=== PATIENT | female | born 1940 | race Caucasian/White ===

== ENCOUNTER 2017-09-14 14:00 | Outpatient (RCR) | payer MEDICARE, SELFPAY | END 2017-09-14 23:59 | LOC: PT.CARL 14:00 | PROVIDERS: Referring Provider Internal Medicine; Visit Provider Internal Medicine | DX: M17.0 Bilateral primary osteoarthritis of knee (principal); M19.021 Primary osteoarthritis, right elbow; M19.042 Primary osteoarthritis, left hand; M19.041 Primary osteoarthritis, right hand | CPT/HCPCS: G8978; G8979; G8980; 97110; 97112; 97116; 97140; 97162; 97530 ==

== ENCOUNTER → 2017-11-16 07:32 | Outpatient (CLI) | payer MEDICARE, SELFPAY ==
[2017-11-16 07:38] LABS: Microscopic, Urine URINE MICROSCOPIC (MICROSCOPIC)
[2017-11-16 13:53] LABS: Appearance,Urine CLEAR (Clear); Bilirubin,Urine Negative (Negative); Blood, Urine Negative (Negative); Color,Urine YELLOW (Yellow); Glucose,Urine (UA) Negative (Negative); Ketones,Urine Negative (Negative); Leukocyte Esterase,Urine 1+ (Negative); Nitrate,Urine Negative (Negative); Protein,Urine Negative (Negative); Urobilinogen,Urine 0.2 EU/dl (0.2)
[2017-11-16 13:57] LABS: Creatinine,Urine Random 27 mg/dL (20-320)
[2017-11-16 14:11] LABS: WBC,Urine Occasional #/hpf (0-3)
[2017-11-16 14:16] LABS: Albumin Level 4.1 gm/dL (3.4-5.0); Anion Gap 13.8 mEq/L (5-15); Calcium 9.3 mg/dL (8.5-10.1); Carbon Dioxide 32 mmol/L (21.0-32.0); Chloride 96 mmol/L (98-107); Creatinine,Serum 1.74 mg/dL (0.55-1.02); Estimated Glomerular Filt Rate 28 ml/min (>60); GFR (African American) 34 ML/MIN (>60); Glucose 189 mg/dL (74-106); Phosphorous 4.5 mg/dL (2.4-4.9); Potassium 3.8 mmoL/L (3.5-5.1); Sodium 138 mmol/L (136-145)
[2017-11-16 14:23] LABS: Blood Urea Nitrogen 111 mg/dL (7-18)
[2017-11-18 06:41] LABS: Sodium, Urine 43 mmol/L (Not Estab.)
== END ==
PROVIDERS: PCP Internal Medicine; Visit Provider Internal Medicine Nephrology
DX: N18.4 Chronic kidney disease, stage 4 (severe) (principal); R82.90 Unspecified abnormal findings in urine
CPT/HCPCS: 36415; 80069; 81001; 82570; 84300; 87086

== ENCOUNTER 2017-12-25 15:00 | Outpatient (RCR) | payer MEDICARE, SELFPAY | END 2017-12-25 17:00 | disposition home or self-care (01) | LOC: PT 15:00 | PROVIDERS: Family Provider Internal Medicine; PCP Internal Medicine; Visit Provider Internal Medicine | DX: M17.0 Bilateral primary osteoarthritis of knee (principal); M19.021 Primary osteoarthritis, right elbow; M19.022 Primary osteoarthritis, left elbow; M19.041 Primary osteoarthritis, right hand; M19.042 Primary osteoarthritis, left hand | CPT/HCPCS: 97010; 97012; 97033; 97035; 97110; 97112; 97164 ==

== ENCOUNTER → 2018-02-01 07:13 | Outpatient (CLI) | payer MEDICARE, SELFPAY ==
[2018-02-01 07:18] LABS: Microscopic, Urine URINE MICROSCOPIC (MICROSCOPIC)
[2018-02-01 14:07] LABS: Anion Gap 13.9 mEq/L (5-15); Calcium 9.6 mg/dL (8.5-10.1); Carbon Dioxide 33 mmol/L (21.0-32.0); Chloride 96 mmol/L (98-107); Creatinine,Serum 1.91 mg/dL (0.55-1.02); Estimated Glomerular Filt Rate 25 ml/min (>60); GFR (African American) 31 ML/MIN (>60); Glucose 146 mg/dL (74-106); Phosphorous 4.8 mg/dL (2.4-4.9); Potassium 3.9 mmoL/L (3.5-5.1); Sodium 139 mmol/L (136-145)
[2018-02-01 14:21] LABS: Blood Urea Nitrogen 107 mg/dL (7-18)
[2018-02-01 14:52] LABS: Creatinine,Urine Random 34 mg/dL (20-320); Total Protein,Urine Random 9.7 mg/dL (0.0-11.9)
[2018-02-01 15:04] LABS: Appearance,Urine CLEAR (Clear); Bilirubin,Urine Negative (Negative); Blood, Urine Negative (Negative); Color,Urine YELLOW (Yellow); Glucose,Urine (UA) Negative (Negative); Ketones,Urine Negative (Negative); Leukocyte Esterase,Urine 1+ (Negative); Nitrate,Urine Negative (Negative); Protein,Urine Negative (Negative); Specific Gravity, Urine <= 1.005 (1.005-1.030); Urobilinogen,Urine 0.2 EU/dl (0.2)
[2018-02-01 15:32] LABS: Bacteria,Urine Trace /lpf; RBC,Urine Occasional #/hpf (0-3)
[2018-02-04 06:16] LABS: Parathyroid Hormone Intact 101 pg/mL (15-65)
== END ==
PROVIDERS: Visit Provider Internal Medicine Nephrology
DX: N18.4 Chronic kidney disease, stage 4 (severe) (principal); R82.90 Unspecified abnormal findings in urine
CPT/HCPCS: 36415; 80069; 81001; 82570; 82652; 83970; 84155; 87086

== ENCOUNTER → 2018-05-22 10:08 | Outpatient (CLI) | payer MEDICARE, SELFPAY ==
--- NOTE | 2018-05-22 10:17 | XR_ITS ---
XR knee LT 3V HISTORY: Previous total knee surgery ITS.REASON: LEFT KNEE PAIN ORDERING PHYSICIAN: Ariel Germain PATIENT AGE: 77 years COMPARISON: Left knee 02/14/2011 FINDINGS: The femoral prosthesis is in good alignment and apposition to the tibial plateau prosthesis. The semiopaque plug is seen undersurface of the patella. There is no evidence of loosening of either prosthesis. IMPRESSION: Satisfactory appearance of total knee prosthesis, no acute bony or soft tissue pathology noted
== END ==
PROVIDERS: PCP Internal Medicine; Visit Provider Internal Medicine
DX: M25.562 Pain in left knee (principal)
CPT/HCPCS: 73562

== ENCOUNTER → 2018-06-02 07:10 | Outpatient (CLI) | payer MEDICARE, SELFPAY ==
[2018-06-02 13:34] LABS: Basophils % 0.5 % (0.1-2.0); Eosinophils # 0.1 K/mm3 (0.0-0.4); Eosinophils % 0.8 % (0.1-12.0); Hematocrit 44.4 % (37.0-47.0); Hemoglobin 14.6 g/dL (12.2-16.2); Lymphocytes # 1.5 K/mm3 (0.7-4.5); Lymphocytes % 26.2 K/mm3 (10-50); Mean Corpuscular HGB Conc 32.8 g/dL (31.8-35.4); Mean Corpuscular Hemoglobin 32.7 pg (27.0-31.2); Mean Corpuscular Volume 99.7 fl (81-99); Mean Platelet Volume 8.1 fl (7.4-10.4); Monocytes # 0.4 K/mm3 (0.1-1.0); Monocytes % 7.5 % (1.7-9.3); Neutrophils # 3.7 K/mm3 (1.8-7.8); Neutrophils % 64.9 % (37.0-80.0); Platelet Count 163 K/mm3 (142-424); Red Blood Count 4.46 M/mm3 (4.20-5.40); Red Cell Distribution Width 15.8 % (11.5-17.5); White Blood Count 5.6 K/mm3 (4.8-10.8)
[2018-06-02 13:47] LABS: Creatinine,Urine Random 36 mg/dL (20-320); Total Protein,Urine Random 8.9 mg/dL (0.0-11.9)
[2018-06-02 13:54] LABS: Albumin Level 4.1 gm/dL (3.4-5.0); Anion Gap 14.7 mEq/L (5-15); Calcium 9.8 mg/dL (8.5-10.1); Carbon Dioxide 31 mmol/L (21.0-32.0); Chloride 97 mmol/L (98-107); Creatinine,Serum 2.02 mg/dL (0.55-1.02); Estimated Glomerular Filt Rate 24 ml/min (>60); GFR (African American) 29 ML/MIN (>60); Glucose 159 mg/dL (74-106); Phosphorous 4.7 mg/dL (2.4-4.9); Potassium 3.7 mmoL/L (3.5-5.1); Sodium 139 mmol/L (136-145)
[2018-06-02 14:06] LABS: Blood Urea Nitrogen 114 mg/dL (7-18)
== END ==
PROVIDERS: PCP Internal Medicine
DX: N18.4 Chronic kidney disease, stage 4 (severe) (principal)
CPT/HCPCS: 36415; 80069; 82570; 84155; 85025

== ENCOUNTER → 2018-08-03 09:48 | Outpatient (CLI) | payer MEDICARE, SELFPAY ==
--- NOTE | 2018-08-03 09:51 | MM_ITS ---
MM Dig screening mamm BI w/CAD CAD Screening COMPARISON: Digital mammograms with CAD 07/30/2017 and 08/24/2015 INDICATION: There is no personal or family history of breast cancer. There is been previous biopsies on each breast for benign disease. TECHNIQUE: Standard CC and MLO images were obtained. R2 CAD reviewed. FINDINGS: Mild to moderate fibroglandular densities are seen in the subareolar regions of both breasts. Again noted is a asymmetric area of glandular density lower central portion left breast is stable. A biopsy clip is seen at this location and the biopsy was benign. There are benign-appearing calcifications in each breast. There is no new or suspicious lesion in either breast and there are no suspicious microcalcifications. IMPRESSION: Stable exam no suspicious lesion seen BI-RADS Category: 2 Benign Finding(s) RECOMMENDED FOLLOW-UP: 1YR - 1 YEAR FOLLOW-UP (A letter has been sent to the patient regarding results of the study.)
== END ==
PROVIDERS: PCP Internal Medicine; Visit Provider Internal Medicine
DX: Z12.31 Encounter for screening mammogram for malignant neoplasm of breast (principal)
CPT/HCPCS: 77067

== ENCOUNTER → 2018-08-13 08:08 | Outpatient (CLI) | payer MEDICARE, SELFPAY ==
--- NOTE | 2018-08-13 08:12 | XR_ITS ---
XR DEXA axial skeleton HISTORY: ITS.REASON: POST MENOPAUSAL ORDERING PHYSICIAN: Ariel Germain PATIENT AGE: 78 years COMPARISON: None FINDINGS: The BMD measured at the left femoral neck is 0.807 g/cm squared with a T score of -1.7. This is considered Osteopenic according to the World Health Organization criteria. Fracture risk is Moderate. Treatment is advised. IMPRESSION: Osteopenia with moderate fracture risk. Suggest treatment and follow-up exam July 2020
== END ==
PROVIDERS: PCP Internal Medicine; Visit Provider Internal Medicine
DX: Z78.0 Asymptomatic menopausal state (principal)
CPT/HCPCS: 77080

== ENCOUNTER → 2018-09-17 08:54 | Outpatient (CLI) | payer MEDICARE, SELFPAY ==
[2018-09-17 09:01] LABS: Microscopic, Urine URINE MICROSCOPIC (MICROSCOPIC)
[2018-09-17 14:22] LABS: Appearance,Urine CLEAR (Clear); Bilirubin,Urine Negative (Negative); Blood, Urine Negative (Negative); Color,Urine YELLOW (Yellow); Glucose,Urine (UA) Negative (Negative); Ketones,Urine Negative (Negative); Leukocyte Esterase,Urine 1+ (Negative); Nitrate,Urine Negative (Negative); PH,Urine 6.5 (5.0-8.5); Protein,Urine Negative (Negative); Specific Gravity, Urine <= 1.005 (1.005-1.030); Urobilinogen,Urine 0.2 EU/dl (0.2)
[2018-09-17 14:30] LABS: Creatinine,Urine Random 33 mg/dL (20-320); Total Protein,Urine Random 7.2 mg/dL (0.0-11.9)
[2018-09-17 14:57] LABS: Basophils # 0.1 K/mm3 (0-0.2); Basophils % 0.9 % (0.1-2.0); Eosinophils # 0.1 K/mm3 (0.0-0.4); Hematocrit 42.7 % (37.0-47.0); Lymphocytes # 1.2 K/mm3 (0.7-4.5); Lymphocytes % 21.2 % (10-50); Mean Corpuscular HGB Conc 32.7 g/dL (31.8-35.4); Mean Corpuscular Hemoglobin 33.1 pg (27.0-31.2); Mean Corpuscular Volume 101.4 fl (81-99); Mean Platelet Volume 8.5 fl (7.4-10.4); Monocytes # 0.4 K/mm3 (0.1-1.0); Monocytes % 6.8 % (1.7-9.3); Neutrophils # 3.8 K/mm3 (1.8-7.8); Neutrophils % 70.2 % (37.0-80.0); Platelet Count 161 K/mm3 (142-424); Red Blood Count 4.21 M/mm3 (4.20-5.40); Red Cell Distribution Width 16.3 % (11.5-17.5); White Blood Count 5.4 K/mm3 (4.8-10.8)
[2018-09-17 15:22] LABS: Bacteria,Urine Trace /lpf
[2018-09-17 16:06] LABS: Albumin Level 4.1 gm/dL (3.4-5.0); Anion Gap 14.8 mEq/L (5-15); Calcium 9.4 mg/dL (8.5-10.1); Carbon Dioxide 29 mmol/L (21.0-32.0); Chloride 97 mmol/L (98-107); Creatinine,Serum 2.12 mg/dL (0.55-1.02); Estimated Glomerular Filt Rate 22 ml/min (>60); GFR (African American) 27 ML/MIN (>60); Glucose 175 mg/dL (74-106); Phosphorous 4.6 mg/dL (2.4-4.9); Potassium 3.8 mmoL/L (3.5-5.1); Sodium 137 mmol/L (136-145)
[2018-09-17 16:26] LABS: Blood Urea Nitrogen 102 mg/dL (7-18)
[2018-09-18 14:03] LABS: Parathyroid Hormone Intact 94 pg/mL (15-65); Vitamin D 25 Hydroxy 41.2 ng/mL (30.0-100.0)
== END ==
PROVIDERS: PCP Internal Medicine
DX: N18.4 Chronic kidney disease, stage 4 (severe) (principal); R82.90 Unspecified abnormal findings in urine
CPT/HCPCS: 36415; 80069; 81001; 82570; 82652; 83970; 84155; 85025; 87086

== ENCOUNTER → 2019-02-02 07:34 | Outpatient (CLI) | payer MEDICARE, SELFPAY ==
[2019-02-02 07:47] LABS: Microscopic, Urine URINE MICROSCOPIC (MICROSCOPIC)
[2019-02-02 14:00] LABS: Appearance,Urine CLEAR (Clear); Bilirubin,Urine Negative (Negative); Blood, Urine Negative (Negative); Color,Urine YELLOW (Yellow); Glucose,Urine (UA) Negative (Negative); Ketones,Urine Negative (Negative); Leukocyte Esterase,Urine 1+ (Negative); Nitrate,Urine Negative (Negative); PH,Urine 6.5 (5.0-8.5); Protein,Urine Negative (Negative); Specific Gravity, Urine <= 1.005 (1.005-1.030); Urobilinogen,Urine 0.2 EU/dl (0.2)
[2019-02-02 14:01] LABS: Basophils # 0.1 K/mm3 (0-0.2); Basophils % 1.1 % (0.1-2.0); Eosinophils # 0.2 K/mm3 (0.0-0.4); Eosinophils % 3.7 % (0.1-12.0); Hematocrit 40.7 % (37.0-47.0); Hemoglobin 13.5 g/dL (12.2-16.2); Lymphocytes # 1.3 K/mm3 (0.7-4.5); Lymphocytes % 27.7 % (10-50); Mean Corpuscular HGB Conc 33.3 g/dL (31.8-35.4); Mean Corpuscular Hemoglobin 32.9 pg (27.0-31.2); Mean Platelet Volume 7.9 fl (7.4-10.4); Monocytes # 0.4 K/mm3 (0.1-1.0); Monocytes % 8.8 % (1.7-9.3); Neutrophils # 2.7 K/mm3 (1.8-7.8); Neutrophils % 58.7 % (37.0-80.0); Platelet Count 176 K/mm3 (142-424); Red Blood Count 4.11 M/mm3 (4.20-5.40); Red Cell Distribution Width 15.7 % (11.5-17.5); White Blood Count 4.7 K/mm3 (4.8-10.8)
[2019-02-02 14:15] LABS: Bacteria,Urine 1+ /lpf
[2019-02-02 14:25] LABS: Albumin Level 3.7 gm/dL (3.4-5.0); Anion Gap 10.8 mEq/L (5-15); Calcium 9.1 mg/dL (8.5-10.1); Carbon Dioxide 32 mmol/L (21.0-32.0); Chloride 100 mmol/L (98-107); Estimated Glomerular Filt Rate 23 ml/min (>60); GFR (African American) 27 ML/MIN (>60); Glucose 155 mg/dL (74-106); Phosphorous 4.5 mg/dL (2.4-4.9); Potassium 3.8 mmoL/L (3.5-5.1); Sodium 139 mmol/L (136-145)
[2019-02-02 14:37] LABS: Blood Urea Nitrogen 101 mg/dL (7-18)
== END ==
PROVIDERS: PCP Internal Medicine; Visit Provider Internal Medicine Nephrology
DX: N18.4 Chronic kidney disease, stage 4 (severe) (principal)
CPT/HCPCS: 36415; 80069; 81001; 85025; 87086

== ENCOUNTER → 2019-02-14 14:47 | Outpatient (CLI) | payer MEDICARE, SELFPAY ==
--- NOTE | 2019-02-14 15:16 | XR_ITS ---
XR hip RT 2-3V w/pelvis HISTORY: Tenderness surrounding a hard lesion subcutaneous tissues of the right buttock ITS.REASON: LESION RT BUTTOCKS ORDERING PHYSICIAN: Ariel Germain PATIENT AGE: 78 years COMPARISON: None FINDINGS: There are 2 ossifications just beneath the surface of the skin right upper buttock just below the level of the right iliac crest. The largest ossification measures 4.4 x 2.4 cm. The small ossification measures 1.37 m in length. The surrounding soft tissues appear normal. Prominent orthopedic hardware is seen lower lumbar spine for multilevel fusion procedure. There is a pain relief device in the soft tissues of the right posteriorly with electrode extending into the mid elbows. 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
== END ==
PROVIDERS: PCP Internal Medicine; Visit Provider Internal Medicine
DX: L02.31 Cutaneous abscess of buttock (principal)
CPT/HCPCS: 73502

== ENCOUNTER → 2019-03-02 08:41 | Outpatient (CLI) | payer MEDICARE, SELFPAY ==
[2019-03-02 15:04] LABS: Creatinine,Serum 2.19 mg/dL (0.55-1.02); Estimated Glomerular Filt Rate 22 ml/min (>60); GFR (African American) 26 ML/MIN (>60)
[2019-03-02 15:09] LABS: Blood Urea Nitrogen 122 mg/dL (7-18)
== END ==
PROVIDERS: PCP Internal Medicine; Visit Provider Surgery
DX: Z01.818 Encounter for other preprocedural examination (principal)
CPT/HCPCS: 36415; 82565; 84520

== ENCOUNTER → 2019-03-10 12:49 | Outpatient (CLI) | payer MEDICARE, SELFPAY ==
--- NOTE | 2019-03-10 12:50 | CT_ITS ---
CT pelvis wo con INDICATION: Right hip mass ITS.REASON: right hip mass ORDERING PHYSICIAN: Ariel Serrano MD PATIENT AGE: 78 years COMPARISON: 03/29/2009 TECHNIQUE: Axial images are obtained without contrast. Sagittal and coronal reformatted images are reviewed as well. All CT scans at the facility use one or more dose reduction, viz: automated exposure control, ma/kV adjustment per patient size (including targeted exams where dose is matched to indication, i.e. head), or iterative reconstruction technique. FINDINGS: A BB is placed along the palpable right hip mass. Axial images are obtained without contrast. Patient had to be positioned obliquely within the CT gantry to adequately image the abnormalities. There is a pain pump present in the subcutaneous regions of the right hip posteriorly and medially. There is a coarse area of calcification in the subcutaneous tissues lobular in nature in the right hip at the gluteal region. This measures approximately 4 cm with some lobulations around it. This is well-circumscribed and calcified and is consistent with an injection granuloma. There is a similar subcutaneous calcific density in the left hip measuring 3.8 x 1.5 cm. This was present on 03/29/2009 and is consistent with an injection granuloma on the left. No suspicious mass or fluid collection is evident. Spine and postsurgical changes of the lumbosacral junction. 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
== END ==
PROVIDERS: PCP Internal Medicine; Visit Provider Surgery
DX: R22.40 Localized swelling, mass and lump, unspecified lower limb (principal)
CPT/HCPCS: 72192

== ENCOUNTER 2019-04-13 13:33 | Observation (INO) ==
[2019-04-13 14:19] LABS: Basophils % 0.2 % (0.1-2.0); Eosinophils % 0.2 % (0.1-12.0); Hematocrit 37.9 % (37.0-47.0); Hemoglobin 12.1 g/dL (12.2-16.2); Lymphocytes # 0.7 K/mm3 (0.7-4.5); Lymphocytes % 7.7 % (10-50); Mean Corpuscular Volume 97.7 fl (81-99); Monocytes # 0.7 K/mm3 (0.1-1.0); Monocytes % 7.8 % (1.7-9.3); Neutrophils # 7.8 K/mm3 (1.8-7.8); Neutrophils % 84.1 % (37.0-80.0); Platelet Count 156 K/mm3 (142-424); Red Blood Count 3.88 M/mm3 (4.20-5.40); Red Cell Distribution Width 15.7 % (11.5-17.5); White Blood Count 9.2 K/mm3 (4.8-10.8)
[2019-04-13 14:30] LABS: Alanine Aminotransferase 41 U/L (12-78); Albumin Level 3.1 gm/dL (3.4-5.0); Albumin/Globulin Ratio 0.7 (1.1-1.8); Alkaline Phosphatase 126 U/L (46-116); Anion Gap 14.8 mEq/L (5-15); Aspartate Amino Transferase 29 U/L (15-37); Bilirubin,Total 1.2 mg/dL (0.2-1.0); Calcium 9.8 mg/dL (8.5-10.1); Carbon Dioxide 27 mmol/L (21.0-32.0); Chloride 94 mmol/L (98-107); Globulin 4.5 gm/dl (1.3-3.2); Glucose 276 mg/dL (74-106); Sodium 131 mmol/L (136-145); Total Protein,Serum 7.6 gm/dL (6.4-8.2)
--- NOTE | 2019-04-13 14:30 | Emergency Department Note ---
ED Disposition Clinical Impression: Cellulitis Disposition: Admitted as Observation Condition on Discharge: Fair Instructions: DI for Hyperglycemia -- Adult Referrals: Ariel Germain [Primary Care Provider] - Time of Disposition: 16:40 - Critical Care Critical Care Time: No Attestation: On 04/13/19, the high probability of a clinically significant, sudden or life threatening deterioration of the following system(s) required my full and direct attention, intervention and personal management. The time I documented below is in addition to time spent performing reported procedures but includes the following listed in this critical care notation. Medical Decision Making - Medical Records Medical records reviewed: Yes: I reviewed the patient's medical records. - Gilles Inquiry Pt receiving controlled substance: No Gilles was queried for this patient: No Vital Signs: 04/13/19 13:44 04/13/19 14:31 04/13/19 15:09 Temperature 98.9 F Temperature Source Oral Pulse Rate [Right Brachial] 80 80 77 Respiratory Rate 19 Blood Pressure [Right Arm] 120/60 106/65 L 111/61 Blood Pressure Mean [Right Arm] 80 78 77 Blood Pressure Source [Right Arm] Automatic Cuff Automatic Cuff Automatic Cuff Blood Pressure Position [Right Arm] Sitting Sitting 02 Sat by Pulse Oximetry 97 94 L 92 L Oxygen Delivery Method Room Air Room Air Room Air 04/13/19 15:35 04/13/19 16:13 Temperature Temperature Source Pulse Rate [Right Brachial] 67 80 Respiratory Rate Blood Pressure [Right Arm] 109/66 L 107/40 L Blood Pressure Mean [Right Arm] 80 62 Blood Pressure Source [Right Arm] Automatic Cuff Automatic Cuff Blood Pressure Position [Right Arm] Sitting Sitting 02 Sat by Pulse Oximetry 94 L 92 L Oxygen Delivery Method Room Air Room Air - Lab Data Lab results reviewed: Yes: I reviewed the patient's lab results. Lab Results 04/13/19 13:50: WBC 9.2, RBC 3.88 L, Hgb 12.1 L, Hct 37.9, MCV 97.7, MCH 31.2, MCHC 32.0, RDW 15.7, Plt Count 156, MPV 8.0, Neut % (Auto) 84.1 H, Lymph % (Auto) 7.7 L, [place] % (Auto) 7.8, Eos % (Auto) 0.2, Baso % (Auto) 0.2, Neut # (Auto) 7.8, Lymph # (Auto) 0.7, [place] # (Auto) 0.7, Eos # (Auto) 0.0, Baso # (Auto) 0.0 04/13/19 13:50: Sodium 131 L, Potassium 4.8, Chloride 94 L, Carbon Dioxide 27, Anion Gap 14.8, BUN 90 H, Creatinine 2.10 H, Estimated Creat Clear 35, Estimated GFR 23 L, Est GFR ( Amer) 27 L, Glucose 276 H, Calcium 9.8, Total Bilirubin 1.2 H, AST 29, ALT 41, Alkaline Phosphatase 126 H, Troponin I < 0.02, Total Protein 7.6, Albumin 3.1 L, Globulin 4.5 H, Albumin/Globulin Ratio 0.7 L 04/13/19 13:50: Lactate 1.4 Result diagrams: 04/13/19 13:50 04/13/19 13:50 Orders (Tests/Meds): ORDERS Category Date Time Status Blood Culture Stat Micro 04/13/19 13:50 Received ECG Request by /Nse Stat Y 04/13/19 14:00 Ordered General Adult HPI - General Chief complaint: Hyper/Hypoglycemia Stated complaint: high sugar and shaking and sick Time Seen by Provider: 04/13/19 14:26 Mode of Arrival: Wheelchair Source of Information: Patient, Relative Limitations: No Limitations Description of Symptoms (Recalled from ER Triage Doc. by RN): incr blood sugar, thinks it might be her leg infection causing it; additionally is worried about the tremors she is experiencing - History of Present Illness HPI narrative: weakness, nausea, irritable/shaky. Has R LE ulcer which appears infected. Previously on antibiotic, caused diarrhea - Related Data Home Medications Medication Instructions Recorded Confirmed insulin aspar prot-insulin aspart SUB-Q 90 Days 11/02/17 03/14/19 100 unit/mL (70-30) subcutaneous pen pen needle, diabetic 31 gauge x See Dose Instructions .ROUTE 11/02/17 03/14/1912/11" .MEDSUPPLY 90 Days each spironolactone 25 mg tablet PO 90 Days 11/02/17 03/14/19 B-complex with vitamin C tablet 1 tab PO DAILY 02/25/19 03/14/19 allopurinol 100 mg tablet 100 mg PO BID 90 Days #180 tab 02/25/19 03/14/19 bisoprolol fumarate 5 mg tablet 2.5 mg PO DAILY 90 Days #45 tab 02/25/19 03/14/19 clonazepam 0.5 mg tablet 0.5 mg PO QHS 30 Days #30 tab 02/25/19 03/14/19 fluoxetine 20 mg capsule 40 mg PO DAILY 90 Days #180 cap 02/25/19 03/14/19 gabapentin 300 mg capsule PO QHS 90 Days cap 02/25/19 03/14/19 gabapentin 600 mg tablet PO TID 90 Days tab 02/25/19 03/14/19 hydrocodone 10 mg-acetaminophen PO Q6H 30 Days tab 02/25/19 03/14/19 325 mg tablet isosorbide mononitrate ER 60 mg 60 mg PO DAILY 90 Days #90 tab 02/25/19 03/14/19 tablet,extended release 24 hr linagliptin 5 mg tablet PO DAILY 90 Days tab 02/25/19 03/14/19 magnesium 400 mg (as magnesium 400 mg PO DAILY 02/25/19 03/14/19 oxide) capsule metolazone 2.5 mg tablet 5 mg PO TID 90 Days #540 tab 02/25/19 03/14/19 potassium chloride ER 20 mEq PO TID 90 Days tab 02/25/19 03/14/19 tablet,extended release(part/cryst) pravastatin 40 mg tablet PO QHS 90 Days tab 02/25/19 03/14/19 ropinirole 1 mg tablet 2 mg PO QHS 90 Days #180 tab 02/25/19 03/14/19 torsemide 20 mg tablet 40 mg PO BID 90 Days #360 tab 02/25/19 03/14/19 Previous Rx's Medication Instructions Recorded ciprofloxacin 0.3 %-dexamethasone 4 drp OTIC BID #7.5 ml 11/02/17 0.1 % ear drops,suspension Cyclobenzaprine HCl 5 mg PO BIDP PRN #20 tab 02/10/19 [Cyclobenzaprine 5mg Tab] Allergies Allergy/AdvReac Type Severity Reaction Status Date / Time acetaminophen [From Percocet] Allergy Severe HIVES AND Verified 03/14/19 11:09 OUT OF MY HEAD oxycodone [OXYCODONE] Allergy Unknown Verified 03/14/19 11:09 [facility] History - Hepatitis A Screen Drug use history?: No High risk sexual behaviors?: No History of sexually transmitted infection?: No Currently employed?: No Childcare worker?: No Do you have indoor plumbing?: Yes Do you have electricity?: Yes Attestation statement:: This patient has been screened for Hepatitis A risk factors. I have reviewed the patient's past medical history: Yes Medical History: Reports:: Congestive Heart Failure, Coronary Artery Disease, Diabetes Mellitus Type 2, Hyperlipidemia, Hypertension, Renal Disease, Renal Insufficiency Denies:: Internal Pacemaker Other Medical History: Reports: Arthritis Laterality Cases: Left: Arthroscopy Knee, Right: Arthroscopy Shoulder Other Surgeries: Yes: Cholecystectomy, Hysterectomy-Total, Other. No: Pacemaker Comment: left foot tendon, samuel knee replacement, lapchole x2, thumb, right arm ulner nerve repair, bladder stim - Social History Educational Level: Completed High School Smoking Status: Unknown if ever smoked Tobacco Type: cigarettes Alcohol Intake: never Substance Use Type: denies use Occupational Status: retired Housing: house Household Members: family Family Hx:: Kidney Disease, Hypertension, Hyperlipidemia, Diabetes, Coronary Artery Disease ROS Obtained: Yes All systems reviewed & no additional complaints - Constitutional Constitutional: Reports chills - Cardiovascular Cardiovascular: Denies chest pain, Denies dyspnea - Respiratory Respiratory: No dyspnea - Gastrointestinal Gastrointestingal: Reports: nausea. Denies: abdominal pain - Musculoskeletal Musculoskeletal: Reports muscle weakness - Integumentary/Breasts Skin/Breast: Reports redness, Reports skin pain, Reports wounds - Neurologic Neurologic: Denies abnormal speech, Denies confusion - Hematologic/Lymphatic Henatologic/Lymphatic: Denies easy bleeding, Denies easy bruising Physical Exam - General General appearance: alert, in no apparent distress - Eye Eye exam: Present: normal appearance, PERRL, EOMI - ENT ENT exam: Present: normal exam, normal oropharynx, mucous membranes moist, TM's normal bilaterally, normal external ear exam - Neck Neck exam: Present: normal inspection, full ROM, trachea midline. Absent: meningismus, lymphadenopathy - Respiratory Respiratory exam: Present: normal lung sounds bilaterally. Absent: respiratory distress - Cardiovascular Cardiovascular exam: Present: regular rate - Abdominal Exam Abdominal exam: Present: soft, normal bowel sounds. Absent: distention, tenderness, guarding - Extremities Exam Extremities exam: Present: tenderness, other (pretibial ulcer). Absent: normal inspection - Neurological Exam Neurological exam: Present: alert, oriented X3 - Skin Skin exam: Present: warm, dry, erythema, other (ulcer present). Absent: intact
[2019-04-13 14:39] LABS: Blood Urea Nitrogen 90 mg/dL (7-18)
[2019-04-13 18:24] LABS: Microscopic, Urine URINE MICROSCOPIC (MICROSCOPIC)
[2019-04-13 18:33] LABS: Appearance,Urine CLEAR (Clear); Bilirubin,Urine Negative (Negative); Blood, Urine TRACE-L (Negative); Color,Urine YELLOW (Yellow); Glucose,Urine (UA) Negative (Negative); Ketones,Urine Negative (Negative); Leukocyte Esterase,Urine 3+ (Negative); Protein,Urine Negative (Negative); Urobilinogen,Urine 0.2 EU/dl (0.2)
[2019-04-13 18:58] LABS: Bacteria,Urine 1+ /lpf; Squamous Epithelial Cell,Urine Occasional #/hpf (0-5); WBC,Urine 50-100 #/hpf (0-3)
[2019-04-14 06:20] LABS: Basophils % 0.6 % (0.1-2.0); Eosinophils # 0.1 K/mm3 (0.0-0.4); Hematocrit 36.3 % (37.0-47.0); Hemoglobin 11.4 g/dL (12.2-16.2); Lymphocytes # 0.7 K/mm3 (0.7-4.5); Lymphocytes % 8.3 % (10-50); Mean Corpuscular HGB Conc 31.5 g/dL (31.8-35.4); Mean Corpuscular Volume 98.7 fl (81-99); Mean Platelet Volume 8.1 fl (7.4-10.4); Monocytes # 0.7 K/mm3 (0.1-1.0); Monocytes % 9.2 % (1.7-9.3); Neutrophils # 6.5 K/mm3 (1.8-7.8); Neutrophils % 80.9 % (37.0-80.0); Platelet Count 146 K/mm3 (142-424); Red Blood Count 3.68 M/mm3 (4.20-5.40); Red Cell Distribution Width 15.7 % (11.5-17.5)
[2019-04-14 06:24] LABS: Anion Gap 12.7 mEq/L (5-15); Calcium 9.4 mg/dL (8.5-10.1)
--- NOTE | 2019-04-14 07:22 | Pharmacy Consult Notes ---
[facility] Pharmacy VTE Monitoring - Patient Demographics Admission date: 04/13/19 Report Date: 04/14/19 Time: 07:22 Allergies/Adverse Reactions: Patient Allergies oxycodone [OXYCODONE] Allergy (Unknown, Verified 04/13/19 19:16) acetaminophen [From Percocet] Adverse Reaction (Severe, Verified 04/13/19 19:16) Height: 1.78 m Weight: 100.924 kg Patient Problems: Current Active Problems (Updated 04/13/19 @ 16:41 by Davonte Edmondson MD) Cellulitis (Acute) - VTE Risk Labs: VTE Related Lab Results Hgb 11.4 g/dL (12.2-16.2) L 04/14/19 05:38 Hct 36.3 % (37.0-47.0) L 04/14/19 05:38 Plt Count 146 K/mm3 (142-424) 04/14/19 05:38 BUN 82 mg/dL (7-18) H 04/14/19 05:38 Creatinine 2.10 mg/dL (0.55-1.02) H 04/14/19 05:38 Estimated Creat Clear 35 mL/min (50-200) 04/14/19 05:38 Was VTE Risk Assessment Performed: Yes VTE Score: 6 VTE Risk Level: Moderate Risk - Prophylaxis VTE Prophylaxis Ordered?: Yes Types of VTE Prophylaxis: TEDS Knee High Location of Applied Device: Left Leg - VTE Diagnosis Confirmed Treatment or plan recommended: Continue Current Treatment
--- NOTE | 2019-04-14 08:38 | Pharmacy Consult Notes ---
- Pharmacy Consult Date: 04/14/19 Time: 08:37 Referring provider: DR. ARRIAGA Reason for Consult:: VANCOMYCIN DOSING Allergies and ADEs:: Allergies Allergy/AdvReac Type Severity Reaction Status Date / Time oxycodone [OXYCODONE] Allergy Unknown Verified 04/13/19 19:16 acetaminophen [From Percocet] AdvReac Severe Verified 04/13/19 19:16 Home Medications:: Home Medications Medication Instructions Recorded Confirmed Type B-complex with vitamin C tablet 1 tab PO DAILY 02/25/19 04/13/19 History allopurinol 100 mg tablet 100 mg PO BID 90 Days #180 tab 02/25/19 04/13/19 History bisoprolol fumarate 5 mg tablet 2.5 mg PO DAILY 90 Days #45 tab 02/25/19 04/13/19 History clonazepam 0.5 mg tablet 0.5 mg PO QHS 30 Days #30 tab 02/25/19 04/13/19 History fluoxetine 20 mg capsule 20 mg PO DAILY 90 Days #180 cap 02/25/19 04/13/19 History gabapentin 300 mg capsule 300 mg PO HS 90 Days cap 02/25/19 04/14/19 History gabapentin 600 mg tablet 600 mg PO TID 90 Days tab 02/25/19 04/14/19 History hydrocodone 10 mg-acetaminophen 1 tab PO Q6HP PRN 30 Days #120 tab 02/25/19 04/14/19 History 325 mg tablet isosorbide mononitrate ER 60 mg 60 mg PO DAILY 90 Days #90 tab 02/25/19 04/13/19 History tablet,extended release 24 hr linagliptin 5 mg tablet 5 mg PO DAILY 90 Days tab 02/25/19 04/14/19 History magnesium 400 mg (as magnesium 400 mg PO DAILY 02/25/19 04/13/19 History oxide) capsule metolazone 2.5 mg tablet 2.5 mg PO TID 90 Days #540 tab 02/25/19 04/13/19 History potassium chloride ER 20 mEq 20 meq PO TID 90 Days tab 02/25/19 04/14/19 History tablet,extended release(part/cryst) pravastatin 40 mg tablet 40 mg PO HS 90 Days tab 02/25/19 04/14/19 History torsemide 20 mg tablet 40 mg PO BID 90 Days #360 tab 02/25/19 04/13/19 History Glucosamine Sulfate Dipot Chlr 1 tab PO DAILY 04/13/19 04/13/19 History [Glucosamine] Miscellaneous [Unknown Home 0 each NOT APPLICABLE CONSULT 04/13/19 04/13/19 History Medication] PHARMACY Ropinirole HCl 2 mg PO HS 04/14/19 04/14/19 History Spironolactone [Spironolactone 25 mg PO BID 04/14/19 04/14/19 History 25mg Tablet] Height: 1.78 m Weight: 100.924 kg Laboratory Results:: Laboratory Results - last 24 hr 04/13/19 13:50: WBC 9.2, RBC 3.88 L, Hgb 12.1 L, Hct 37.9, MCV 97.7, MCH 31.2, MCHC 32.0, RDW 15.7, Plt Count 156, MPV 8.0, Neut % (Auto) 84.1 H, Lymph % (Auto) 7.7 L, [place] % (Auto) 7.8, Eos % (Auto) 0.2, Baso % (Auto) 0.2, Neut # (Auto) 7.8, Lymph # (Auto) 0.7, [place] # (Auto) 0.7, Eos # (Auto) 0.0, Baso # (Auto) 0.0 04/13/19 13:50: Sodium 131 L, Potassium 4.8, Chloride 94 L, Carbon Dioxide 27, Anion Gap 14.8, BUN 90 H, Creatinine 2.10 H, Estimated Creat Clear 35, Estimated GFR 23 L, Est GFR ( Amer) 27 L, Glucose 276 H, Calcium 9.8, Total Bilirubin 1.2 H, AST 29, ALT 41, Alkaline Phosphatase 126 H, Troponin I < 0.02, Total Protein 7.6, Albumin 3.1 L, Globulin 4.5 H, Albumin/Globulin Ratio 0.7 L 04/13/19 13:50: Lactate 1.4 04/13/19 17:19: Urine Color Yellow, Urine Appearance Clear, Urine pH 7.0, Ur Specific [place] 1.010, Urine Protein Negative, Urine Glucose (UA) Negative, Urine Ketones Negative, Urine Blood Trace-l, Urine Nitrate Negative, Urine Bilirubin Negative, Urine Urobilinogen 0.2, Ur Leukocyte Esterase 3+ A, Urine WB C 50-100, Ur Squamous Epith Cells Occasional, Urine Bacteria 1+ 04/13/19 20:08: POC Glucose 340 H* 04/14/19 05:38: WBC 8.0, RBC 3.68 L, Hgb 11.4 L, Hct 36.3 L, MCV 98.7, MCH 31.1, MCHC 31.5 L, RDW 15.7, Plt Count 146, MPV 8.1, Neut % (Auto) 80.9 H, Lymph % (Auto) 8.3 L, [place] % (Auto) 9.2, Eos % (Auto) 1.0, Baso % (Auto) 0.6, Neut # (Auto) 6.5, Lymph # (Auto) 0.7, [place] # (Auto) 0.7, Eos # (Auto) 0.1, Baso # (Auto) 0.0 04/14/19 05:38: Sodium 132 L, Potassium 3.7 D, Chloride 95 L, Carbon Dioxide 28, Anion Gap 12.7, BUN 82 H, Creatinine 2.10 H, Estimated Creat Clear 35, Estimated GFR 23 L, Est GFR ( Amer) 27 L, Glucose 311 H, Calcium 9.4 04/14/19 06:13: POC Glucose 318 H* Medical History: Reports:: Congestive Heart Failure, Coronary Artery Disease, Diabetes Mellitus Type 2, Hyperlipidemia, Hypertension, Renal Disease, Renal Insufficiency Denies:: Cancer, Diabetes Mellitus Type 1, Internal Pacemaker, MRSA Assessment and Plan - Assessment and plan all Dx Assessment and Plan for all problems:: BASED ON PATIENT FACTORS, RECOMMEND VANCOMYCIN 1750 MG IV Q36H. WILL OBTAIN VANCOMYCIN TROUGH LEVEL PRIOR TO 3RD DOSE. PHARMACY WILL FOLLOW DAILY AND ADJUST APPROPRIATE.
--- NOTE | 2019-04-14 09:16 | Non-Invasive Vascular Report ---
"Venous Exam Indications: 729.5 Pain in limb. 782.3 Edema. IMPRESSIONS No evidence of deep or superficial vein thrombosis involving the right lower extremity History: Ulcers of the right leg. Risk factors: Cellulitis. Renal disease. Patient has a right tibial ulcer in the mid calf. This area was bandaged and therefore not imaged. Scanning was performed just distal and proximal to this location. Patient is receiving treatment for cellulitis. Right lower extremity venous duplex evaluation. Doppler flow study including spectral analysis, color and lehman scale imaging. Location: Bedside. Patient status: Inpatient. Tables: Venous flow and imaging: + + + + |Location |Overall |Flow properties | + + + + |Right common femoral |Patent |Normal phasicity; | | | |spontaneous; normal | | | |augmentation; compressible | + + + + |Right saphenofemoral |Patent |Compressible | |junction | | | + + + + |Right profunda femoral |Patent |Compressible | + + + + |Right femoral |Patent |Normal phasicity; | | | |spontaneous; normal | | | |augmentation; compressible | + + + + |Right greater saphenous |Patent |Normal phasicity; | | | |spontaneous; normal | | | |augmentation; compressible | + + + + |Right popliteal |Difficult |Normal phasicity; | | |study |spontaneous; normal | | | |augmentation; compressible | + + + + |Right posterior tibial |Patent |Compressible | + + + + |Right peroneal |Patent |Compressible | + + + + |Right gastrocnemius |Difficult |Compressible | | |study | | + + + + |Right soleal |Difficult |Compressible | | |study | | + + + + (Report amended ) Electronically signed by: Andrae Khan [id number]"
--- NOTE | 2019-04-14 11:02 | Consult Report ---
*Admission Date: 04/13/19 *Reason for consult:: RLE DM ulcer, cellulitis *History of present illness: Mrs. Crawford is a pleasant 78-year-old female who was admitted 04/13/2019 for right lower semi-cellulitis. Her PCP is Dr. Germain who saw her several weeks ago it started her on oral antibiotics. Patient unsure which one but has taken it once daily for 11 days. States the pain and swelling to the right leg has improved. He has a routine engineering librarian she sees outpatient, last seen 6 weeks ago in [place] Dr. Zapata. Patient states that she has had the ulcers at least 3 weeks to her knowledge to the front of the right leg. Daughter has been cleaning them at home and applying Neosporin with a bandage daily. They deny any purulence or malodor. She denies N/V, F/C, SOB/CP. Review of Systems - Constitutional Reports fatigue, Denies chills - Eyes Denies blurry vision - ENT Denies abnormal hearing - *Cardiovascular Denies chest pain, Denies shortness of breath - *Respiratory Denies cough, Denies shortness of breath - *Gastrointestinal Denies nausea, Denies vomiting - *Genitourinary Denies abnormal periods - *Musculoskeletal Reports muscle weakness - Integumentary/Breasts Reports change in skin color, Reports dry skin, Reports skin ulcer - *Neurologic Denies abnormal speech, Denies confusion - Hematologic/Lymphatic Reports easy bruising [facility] History Medical History: Reports:: Congestive Heart Failure, Coronary Artery Disease, Diabetes Mellitus Type 2, Hyperlipidemia, Hypertension, Renal Disease, Renal Insufficiency Denies:: Cancer, Diabetes Mellitus Type 1, Internal Pacemaker, MRSA *Have you ever received a pneumonia vaccine?: Yes *Have you received a flu vaccine this season?: Yes Other Medical History: Reports: Arthritis Laterality Cases: Left: Arthroscopy Knee, Right: Arthroscopy Shoulder Other Surgeries: Yes: Cholecystectomy, Hysterectomy-Total, Other. No: Pacemaker Amputation: No - *Social History Educational Level: Completed High School Smoking Status: Unknown if ever smoked Tobacco Type: cigarettes Alcohol Intake: never Substance Use Type: denies use *Occupational Status:: retired Housing: house Household Members: family *Travel in the last 8 weeks: None Family Hx:: Kidney Disease, Hypertension, Hyperlipidemia, Diabetes, Coronary Artery Disease Meds Home Medications Medication Instructions Recorded Confirmed Type B-complex with vitamin C tablet 1 tab PO DAILY 02/25/19 04/13/19 History allopurinol 100 mg tablet 100 mg PO BID 90 Days #180 tab 02/25/19 04/13/19 History bisoprolol fumarate 5 mg tablet 2.5 mg PO DAILY 90 Days #45 tab 02/25/19 04/13/19 History clonazepam 0.5 mg tablet 0.5 mg PO QHS 30 Days #30 tab 02/25/19 04/13/19 History fluoxetine 20 mg capsule 20 mg PO DAILY 90 Days #180 cap 02/25/19 04/13/19 History gabapentin 300 mg capsule 300 mg PO HS 90 Days cap 02/25/19 04/14/19 History gabapentin 600 mg tablet 600 mg PO TID 90 Days tab 02/25/19 04/14/19 History hydrocodone 10 mg-acetaminophen 1 tab PO Q6HP PRN 30 Days #120 tab 02/25/19 04/14/19 History 325 mg tablet isosorbide mononitrate ER 60 mg 60 mg PO DAILY 90 Days #90 tab 02/25/19 04/13/19 History tablet,extended release 24 hr linagliptin 5 mg tablet 5 mg PO DAILY 90 Days tab 02/25/19 04/14/19 History magnesium 400 mg (as magnesium 400 mg PO DAILY 02/25/19 04/13/19 History oxide) capsule metolazone 2.5 mg tablet 2.5 mg PO TID 90 Days #540 tab 02/25/19 04/13/19 History potassium chloride ER 20 mEq 20 meq PO TID 90 Days tab 02/25/19 04/14/19 History tablet,extended release(part/cryst) pravastatin 40 mg tablet 40 mg PO HS 90 Days tab 02/25/19 04/14/19 History torsemide 20 mg tablet 40 mg PO BID 90 Days #360 tab 02/25/19 04/13/19 History Glucosamine Sulfate Dipot Chlr 1 tab PO DAILY 04/13/19 04/13/19 History [Glucosamine] Miscellaneous [Unknown Home 0 each NOT APPLICABLE CONSULT 04/13/19 04/13/19 Hi story Medication] PHARMACY Ropinirole HCl 2 mg PO HS 04/14/19 04/14/19 History Spironolactone [Spironolactone 25 mg PO BID 04/14/19 04/14/19 History 25mg Tablet] Allergies Allergy/AdvReac Type Severity Reaction Status Date / Time oxycodone [OXYCODONE] Allergy Unknown Verified 04/13/19 19:16 acetaminophen [From Percocet] AdvReac Severe Verified 04/13/19 19:16 Exam Vital signs and Labs for Last 24 Hours: Temp Pulse Resp BP Pulse Ox 98.1 F 80 20 136/58 L 91 L 04/14/19 07:27 04/14/19 07:27 04/14/19 07:27 04/14/19 07:27 04/14/19 07:27 Laboratory Results - last 24 hr 04/13/19 13:50: WBC 9.2, RBC 3.88 L, Hgb 12.1 L, Hct 37.9, MCV 97.7, MCH 31.2, MCHC 32.0, RDW 15.7, Plt Count 156, MPV 8.0, Neut % (Auto) 84.1 H, Lymph % (Auto) 7.7 L, [place] % (Auto) 7.8, Eos % (Auto) 0.2, Baso % (Auto) 0.2, Neut # (Auto) 7.8, Lymph # (Auto) 0.7, [place] # (Auto) 0.7, Eos # (Auto) 0.0, Baso # (Auto) 0.0 04/13/19 13:50: Sodium 131 L, Potassium 4.8, Chloride 94 L, Carbon Dioxide 27, Anion Gap 14.8, BUN 90 H, Creatinine 2.10 H, Estimated Creat Clear 35, Estimated GFR 23 L, Est GFR ( Amer) 27 L, Glucose 276 H, Calcium 9.8, Total Bilirubin 1.2 H, AST 29, ALT 41, Alkaline Phosphatase 126 H, Troponin I < 0.02, Total Protein 7.6, Albumin 3.1 L, Globulin 4.5 H, Albumin/Globulin Ratio 0.7 L 04/13/19 13:50: Lactate 1.4 04/13/19 17:19: Urine Color Yellow, Urine Appearance Clear, Urine pH 7.0, Ur Specific [place] 1.010, Urine Protein Negative, Urine Glucose (UA) Negative, Urine Ketones Negative, Urine Blood Trace-l, Urine Nitrate Negative, Urine Bilirubin Negative, Urine Urobilinogen 0.2, Ur Leukocyte Esterase 3+ A, Urine WBC 50-100, Ur Squamous Epith Cells Occasional, Urine Bacteria 1+ 04/13/19 20:08: POC Glucose 340 H* 04/14/19 05:38: WBC 8.0, RBC 3.68 L, Hgb 11.4 L, Hct 36.3 L, MCV 98.7, MCH 31.1, MCHC 31.5 L, RDW 15.7, Plt Count 146, MPV 8.1, Neut % (Auto) 80.9 H, Lymph % (Auto) 8.3 L, [place] % (Auto) 9.2, Eos % (Auto) 1.0, Baso % (Auto) 0.6, Neut # (Auto) 6.5, Lymph # (Auto) 0.7, [place] # (Auto) 0.7, Eos # (Auto) 0.1, Baso # (A uto) 0.0 04/14/19 05:38: Sodium 132 L, Potassium 3.7 D, Chloride 95 L, Carbon Dioxide 28, Anion Gap 12.7, BUN 82 H, Creatinine 2.10 H, Estimated Creat Clear 35, Estimated GFR 23 L, Est GFR ( Amer) 27 L, Glucose 311 H, Calcium 9.4 04/14/19 05:38: ESR 123 H 04/14/19 05:38: C-Reactive Protein 32.8 H 04/14/19 06:13: POC Glucose 318 H* I & O for Last 24 hours: Intake & Output 04/11/19 04/12/19 04/13/19 04/14/19 11:59 11:59 11:59 11:59 Intake Total 1011 / 1011 Balance 1011 / 1011 Weight 222 lb 8 oz - *Routine HEENT Exam Head: Present: normocephalic Eye: Present: EOMI - *Routine Neck Exam Present: supple - *Routine Respiratory Exam Present: accessory muscle use - *Routine Cardiovascular Exam Present: RRR - *Routine Abdominal Exam Present: soft - *Routine Rectal Exam Patient deferred: visual exam - *Routine Exam Patient deferred: external exam - *Routine Extremities Exam Present: edema, pulses intact, calf tenderness (RLE) - *Routine Skin Exam Present: erythema, wounds - *Routine Neurological Exam Present: alert, moving all extremities - Detailed Lower Extremity Exam Leg image: 1 - RLE cellulitis. 2 wounds noted. Both were sharply debrided with 15' blade. Biofilm and fibrotic slough were debrided. The wound did notprobe thru deep fascia and into the bone. There was no drainage and no purulence noted. No malodor. No wound culture obtained. Jessy-wound cellulitis noted. Non-palpable popliteal lymph nodes. 1) Post-debridement the right anterior patrick wound base was: 90% granular, 10 % fibrotic tissue. The wound measured 2.6 x 3.4 x 0.2 cm. 2) The right lateral ulcer was also sharply divided with a 15 as above. It did not extend deeply. Post debridement 100% granular and the wound measured 0.3 x 0.2 x 0.1 cm. Pain with squeezing of right posterior calf. Edema and erythema noted to RLE. Nails trimmed, groomed. No SOI plantar ulcers. Results - Labs Result Diagrams: 04/14/19 05:38 04/14/19 05:38 Labs: Abnormal lab results 04/13/19 04/13/19 04/13/19 Range/Units 13:50 13:50 17:19 RBC 3.88 L (4.20-5.40) M/mm3 Hgb 12.1 L (12.2-16.2) g/dL Hct (37.0-47.0) % MCHC (31.8-35.4) g/dL Neut % (Auto) 84.1 H (37.0-80.0) % Lymph % (Auto) 7.7 L (10-50) % ESR (0-30) mm/hr Sodium 131 L (136-145) mmol/L Chloride 94 L (98-107) mmol/L BUN 90 H (7-18) mg/dL Creatinine 2.10 H (0.55-1.02) mg/dL Estimated GFR 23 L (>60) ml/min Est GFR ( Amer) 27 L (>60) ML/MIN Glucose 276 H (74-106) mg/dL POC Glucose (70-110) Total Bilirubin 1.2 H (0.2-1.0) mg/dL Alkaline Phosphatase 126 H (46-116) U/L C-Reactive Protein (0.0-0.9) mg/L Albumin 3.1 L (3.4-5.0) gm/dL Globulin 4.5 H (1.3-3.2) gm/dl Albumin/Globulin Ratio 0.7 L (1.1-1.8) Ur Leukocyte Esterase 3+ A (Negative) 04/13/19 04/14/19 04/14/19 Range/Units 20:08 05:38 05:38 RBC 3.68 L (4.20-5.40) M/mm3 Hgb 11.4 L (12.2-16.2) g/dL Hct 36.3 L (37.0-47.0) % MCHC 31.5 L (31.8-35.4) g/dL Neut % (Auto) 80.9 H (37.0-80.0) % Lymph % (Auto) 8.3 L (10-50) % ESR (0-30) mm/hr Sodium 132 L (136-145) mmol/L Chloride 95 L (98-107) mmol/L BUN 82 H (7-18) mg/dL Creatinine 2.10 H (0.55-1.02) mg/dL Estimated GFR 23 L (>60) ml/min Est GFR ( Amer) 27 L (>60) ML/MIN Glucose 311 H (74-106) mg/dL POC Glucose 340 H* (70-110) Total Bilirubin (0.2-1.0) mg/dL Alkaline Phosphatase (46-116) U/L C-Reactive Protein (0.0-0.9) mg/L Albumin (3.4-5.0) gm/dL Globulin (1.3-3.2) gm/dl Albumin/Globulin Ratio (1.1-1.8) Ur Leukocyte Esterase (Negative) 04/14/19 04/14/19 04/14/19 Range/Units 05:38 05:38 06:13 RBC (4.20-5.40) M/mm3 Hgb (12.2-16.2) g/dL Hct (37.0-47.0) % MCHC (31.8-35.4) g/dL Neut % (Auto) (37.0-80.0) % Lymph % (Auto) (10-50) % ESR 123 H (0-30) mm/hr Sodium (136-145) mmol/L Chloride (98-107) mmol/L BUN (7-18) mg/dL Creatinine (0.55-1.02) mg/dL Estimated GFR (>60) ml/min Est GFR ( Amer) (>60) ML/MIN Glucose (74-106) mg/dL POC Glucose 318 H* (70-110) Total Bilirubin (0.2-1.0) mg/dL Alkaline Phosphatase (46-116) U/L C-Reactive Protein 32.8 H (0.0-0.9) mg/L Albumin (3.4-5.0) gm/dL Globulin (1.3-3.2) gm/dl Albumin/Globulin Ratio (1.1-1.8) Ur Leukocyte Esterase (Negative) H & H 04/13/19 04/14/19 Range/Units 13:50 05:38 Hgb 12.1 L 11.4 L (12.2-16.2) g/dL Hct 37.9 36.3 L (37.0-47.0) % All other labs normal. Assessment and Plan (1) Cellulitis of right leg Current visit: Yes Status: Acute Category: Medical Code(s): L03.115 - Cellulitis of right lower limb (2) Diabetic ulcer of right lower leg Current visit: Yes Status: Acute Category: Medical Code(s): E11.622 - Type 2 diabetes mellitus with other skin ulcer; L97.919 - Non-pressure chronic ulcer of unspecified part of right lower leg with unspecified severity (3) Diabetes mellitus with neuropathy Current visit: Yes Status: Acute Category: Medical Code(s): E11.40 - Type 2 diabetes mellitus with diabetic neuropathy, unspecified (4) Right leg pain Current visit: Yes Status: Acute Category: Medical Code(s): M79.604 - Pain in right leg - Assessment and plan all Dx Assessment and Plan for all problems:: Right leg cellulitis, diabetic ulcer: Infected Wound: Right anterior patrick diabetic ulcer ulcer: I discussed with the patient the importance of proper hygiene and maintaining a clean healthy wound bed to avoid the infection spreading. The wound was cleansed with betadine. Utilizing a 15 blade, the wound was sharply excisionally debrided through skin into sub q layer. Biofilm and fibrotic slough were debrided. The wound did notprobe thru deep fascia and into the bone. There was no drainage and no purulence noted. No malodor. No wound culture obtained. Jessy-wound cellulitis noted. Non-palpable popliteal lymph nodes. Post-debridement the anterior wound base was: 90% granular, 10 % fibrotic tissue. The wound measured 2.6 x 3.4 x 0.2 cm. The right lateral ulcer was also sharply divided with a 15 as above. It did not extend deeply. Post debridement 100% granular and the wound measured 0.3 x 0.2 x 0.1 cm. *Pain with squeeze of the right calf. Venous Doppler ordered to rule out DVT. 1. Dressing applied: betadine adaptic dry sterile dressing 2. Wound care instructions given: change dressing daily 3. WBaT with DME assistance 4. Order infection panel: CBC, ESR, CRP, Ha1c. 5. IV antibiotics broad spectrum, likely polymicrobial diabetic ulcer. No wound culture taken as there was no active drainage. 6. Outpatient I would arrange for patient/family to do daily dressing changes or go to wound care center outpatient for follow-up. Cleansed the right leg ulcers with saline or Betadine. The soak Adaptic or 4 x 4's in betwadine to wound, then apply a dry sterile dressing (chandana or kerlix) over the Betadine soaked Adaptic or 4 x 4. Secured with an Otis or with tape. Change the dressing daily. 7. Wound appears stable from a podiatry standpoint. No surgical intervention planned for this patient at this time 8. She can follow-up with her engineering librarian Dr. Eaton in [place] as previously scheduled (last seen 6 weeks ago) 9. Will need antibiotics for discharge 10. Please call me/my office with questions or concerns
--- NOTE | 2019-04-14 13:54 | H&P/Discharge Summary ---
General - General Admission date:: 04/13/19 Discharge date: 04/14/19 *Admission Date: 04/13/19 *Chief complaint: neck pain, upper back pain, RLE pain *History of present illness: Mrs. Crawford is a pleasant 78-year-old female who was admitted 04/13/2019 for right lower semi-cellulitis. Her PCP is Dr. Germain who saw her several weeks ago it started her on oral antibiotics. Patient unsure which one but has taken it once daily for 11 days. States the pain and swelling to the right leg has improved. He has a routine modeler she sees outpatient, last seen 6 weeks ago in [place] Dr[address] Zapata. Patient states that she has had the ulcers at least 3 weeks to her knowledge to the front of the right leg. Daughter has been cleaning them at home and applying Neosporin with a bandage daily. They deny any purulence or malodor. She denies N/V, F/C, SOB/CP. Above per Dr. Murphy much appreciated. Patient fell backwards a few days ago and has had neck/upper back pain since. States RLE is improved. She currently has home health for wound care. [facility] History I have reviewed the patient's past medical history: Yes Medical History: Reports:: Congestive Heart Failure, Coronary Artery Disease, Diabetes Mellitus Type 2, Hyperlipidemia, Hypertension, Renal Disease, Renal Insufficiency Denies:: Cancer, Diabetes Mellitus Type 1, Internal Pacemaker, MRSA *Have you ever received a pneumonia vaccine?: Yes *Have you received a flu vaccine this season?: Yes Other Medical History: Reports: Arthritis Laterality Cases: Left: Arthroscopy Knee, Right: Arthroscopy Shoulder Other Surgeries: Yes: Cholecystectomy, Hysterectomy-Total, Other. No: Pacemaker Amputation: No - *Social History Educational Level: Completed High School Smoking Status: Unknown if ever smoked Tobacco Type: cigarettes Alcohol Intake: never Substance Use Type: denies use *Occupational Status:: retired Housing: house Household Members: family *Travel in the last 8 weeks: None Family Hx:: Kidney Disease, Hypertension, Hyperlipidemia, Diabetes, Coronary Artery Disease Review of Systems - Review of Systems Review of systems:: pertinent systems reviewed and negative unless documented below - Constitutional Reports weakness - *Cardiovascular Reports leg swelling - *Musculoskeletal Reports joint pain, Reports back pain, Reports neck pain - *Neurologic Denies abnormal hearing, Denies abnormal speech, Denies confusion Exam Vital signs and Labs for Last 24 Hours: Temp Pulse Resp BP Pulse Ox 98.1 F 80 20 136/58 L 91 L 04/14/19 07:27 04/14/19 07:27 04/14/19 07:27 04/14/19 07:27 04/14/19 07:27 Laboratory Results - last 24 hr 04/13/19 13:50: WBC 9.2, RBC 3.88 L, Hgb 12.1 L, Hct 37.9, MCV 97.7, MCH 31.2, MCHC 32.0, RDW 15.7, Plt Count 156, MPV 8.0, Neut % (Auto) 84.1 H, Lymph % (Auto) 7.7 L, Ford % (Auto) 7.8, Eos % (Auto) 0.2, Baso % (Auto) 0.2, Neut # (Auto) 7.8, Lymph # (Auto) 0.7, Ford # (Auto) 0.7, Eos # (Auto) 0.0, Baso # (Auto) 0.0 04/13/19 13:50: Sodium 131 L, Potassium 4.8, Chloride 94 L, Carbon Dioxide 27, Anion Gap 14.8, BUN 90 H, Creatinine 2.10 H, Estimated Creat Clear 35, Estimated GFR 23 L, Est GFR ( Amer) 27 L, Glucose 276 H, Calcium 9.8, Total Bilirubin 1.2 H, AST 29, ALT 41, Alkaline Phosphatase 126 H, Troponin I < 0.02, Total Protein 7.6, Albumin 3.1 L, Globulin 4.5 H, Albumin/Globulin Ratio 0.7 L 04/13/19 13:50: Lactate 1.4 04/13/19 17:19: Urine Color Yellow, Urine Appearance Clear, Urine pH 7.0, Ur Specific [place] 1.010, Urine Protein Negative, Urine Glucose (UA) Negative, Urine Ketones Negative, Urine Blood Trace-l, Urine Nitrate Negative, Urine Bilirubin Negative, Urine Urobilinogen 0.2, Ur Leukocyte Esterase 3+ A, Urine WBC 50-100, Ur Squamous Epith Cells Occasional, Urine Bacteria 1+ 04/13/19 20:08: POC Glucose 340 H* 04/14/19 05:38: WBC 8.0, RBC 3.68 L, Hgb 11.4 L, Hct 36.3 L, MCV 98.7, MCH 31.1, MCHC 31.5 L, RDW 15.7, Plt Count 146, MPV 8.1, Neut % (Auto) 80.9 H, Lymph % (Auto) 8.3 L, Ford % (Auto) 9.2, Eos % (Auto) 1.0, Baso % (Auto) 0.6, Neut # (Auto) 6.5, Lymph # (Auto) 0.7, Ford # (Auto) 0.7, Eos # (Auto) 0.1, Baso # (Auto) 0.0 04/14/19 05:38: Sodium 132 L, Potassium 3.7 D, Chloride 95 L, Carbon Dioxide 28, Anion Gap 12.7, BUN 82 H, Creatinine 2.10 H, Estimated Creat Clear 35, Estimated GFR 23 L, Est GFR ( Amer) 27 L, Glucose 311 H, Calcium 9.4 04/14/19 05:38: ESR 123 H 04/14/19 05:38: C-Reactive Protein 32.8 H 04/14/19 06:13: POC Glucose 318 H* I & O for Last 24 hours: Intake & Output 04/12/19 04/13/19 04/14/19 04/15/19 11:59 11:59 11:59 11:59 Intake Total 1011 / 1011 240 / 240 Balance 1011 / 1011 240 / 240 Weight 222 lb 8 oz Narrative: ALert and oriented x3. Rate and rhythm regular. LS clear and equal. ENT exam unremarkable. 1-2+ BLE edema right > left; approx 2x3cm superficial ulcer to anterior patrick, minimal surrounding erythema, no warmth, no purulent drainage. Abdomen soft and nontender Hospital Course Hospital Course: Patient was admitted for observation. Podiatry was consulted for RLE cellulitis who performed superficial debridement of RLE ulcer at bedside. See note. Venous doppler was obtained of RLE which was negative. Inflammatory markers were ordered which were both elevated. RLE x-ray negative for osteomyelitis. X-rays of cervical and thoracic spine were obtained and found to be negative for acute pathology. Physical therapy was consulted for home evaluation who feel she is appropriate to return home with home health. Patient does report some balance issues that are new. If this persists may consider additional work-up with CT head as outpatient. Discharge home with home health for wound care and PT/OT. Add tizandine PRN for muscle spasms, otherwise no med changes. Dr. Murphy recommends one time dose of Orbactiv which is pending insurance approval. If not approved care management will call Dr. Murphy tomorrow for further antibiotic recommendations. Patient needs to FU with Dr. Germain on Thursday and podiatry in one week. Repeat CRP and ESR in one week. If remains elevated would consider bone scan. Results Labs on day of discharge: Labs from last 24 hours 04/14/19 04/14/19 04/14/19 06:13 05:38 05:38 WBC RBC Hgb Hct MCV MCH MCHC RDW Plt Count MPV Neut % (Auto) Lymph % (Auto) Ford % (Auto) Eos % (Auto) Baso % (Auto) Neut # (Auto) Lymph # (Auto) Ford # (Auto) Eos # (Auto) Baso # (Auto) ESR 123 H Sodium Potassium Chloride Carbon Dioxide Anion Gap BUN Creatinine Estimated Creat Clear Estimated GFR Est GFR ( Amer) Glucose POC Glucose 318 H* Lactate Calcium Total Bilirubin AST ALT Alkaline Phosphatase Troponin I C-Reactive Protein 32.8 H Total Protein Albumin Globulin Albumin/Globulin Ratio Urine Color Urine Appearance Urine pH Ur Specific [place] Urine Protein Urine Glucose (UA) Urine Ketones Urine Blood Urine Nitrate Urine Bilirubin Urine Urobilinogen Ur Leukocyte Esterase Urine WBC Ur Squamous Epith Cells Urine Bacteria 04/14/19 04/14/19 04/13/19 05:38 05:38 20:08 WBC 8.0 RBC 3.68 L Hgb 11.4 L Hct 36.3 L MCV 98.7 MCH 31.1 MCHC 31.5 L RDW 15.7 Plt Count 146 MPV 8.1 Neut % (Auto) 80.9 H Lymph % (Auto) 8.3 L Ford % (Auto) 9.2 Eos % (Auto) 1.0 Baso % (Auto) 0.6 Neut # (Auto) 6.5 Lymph # (Auto) 0.7 Ford # (Auto) 0.7 Eos # (Auto) 0.1 Baso # (Auto) 0.0 ESR Sodium 132 L Potassium 3.7 D Chloride 95 L Carbon Dioxide 28 Anion Gap 12.7 BUN 82 H Creatinine 2.10 H Estimated Creat Clear 35 Estimated GFR 23 L Est GFR ( Amer) 27 L Glucose 311 H POC Glucose 340 H* Lactate Calcium 9.4 Total Bilirubin AST ALT Alkaline Phosphatase Troponin I C-Reactive Protein Total Protein Albumin Globulin Albumin/Globulin Ratio Urine Color Urine Appearance Urine pH Ur Specific [place] Urine Protein Urine Glucose (UA) Urine Ketones Urine Blood Urine Nitrate Urine Bilirubin Urine Urobilinogen Ur Leukocyte Esterase Urine WBC Ur Squamous Epith Cells Urine Bacteria 04/13/19 04/13/19 04/13/19 17:19 13:50 13:50 WBC RBC Hgb Hct MCV MCH MCHC RDW Plt Count MPV Neut % (Auto) Lymph % (Auto) Ford % (Auto) Eos % (Auto) Baso % (Auto) Neut # (Auto) Lymph # (Auto) Ford # (Auto) Eos # (Auto) Baso # (Auto) ESR Sodium 131 L Potassium 4.8 Chloride 94 L Carbon Dioxide 27 Anion Gap 14.8 BUN 90 H Creatinine 2.10 H Estimated Creat Clear 35 Estimated GFR 23 L Est GFR ( Amer) 27 L Glucose 276 H POC Glucose Lactate 1.4 Calcium 9.8 Total Bilirubin 1.2 H AST 29 ALT 41 Alkaline Phosphatase 126 H Troponin I < 0.02 C-Reactive Protein Total Protein 7.6 Albumin 3.1 L Globulin 4.5 H Albumin/Globulin Ratio 0.7 L Urine Color Yellow Urine Appearance Clear Urine pH 7.0 Ur Specific [place] 1.010 Urine Protein Negative Urine Glucose (UA) Negative Urine Ketones Negative Urine Blood Trace-l Urine Nitrate Negative Urine Bilirubin Negative Urine Urobilinogen 0.2 Ur Leukocyte Esterase 3+ A Urine WBC 50-100 Ur Squamous Epith Cells Occasional Urine Bacteria 1+ 04/13/19 13:50 WBC 9.2 RBC 3.88 L Hgb 12.1 L Hct 37.9 MCV 97.7 MCH 31.2 MCHC 32.0 RDW 15.7 Plt Count 156 MPV 8.0 Neut % (Auto) 84.1 H Lymph % (Auto) 7.7 L Ford % (Auto) 7.8 Eos % (Auto) 0.2 Baso % (Auto) 0.2 Neut # (Auto) 7.8 Lymph # (Auto) 0.7 Ford # (Auto) 0.7 Eos # (Auto) 0.0 Baso # (Auto) 0.0 ESR Sodium Potassium Chloride Carbon Dioxide Anion Gap BUN Creatinine Estimated Creat Clear Estimated GFR Est GFR ( Amer) Glucose POC Glucose Lactate Calcium Total Bilirubin AST ALT Alkaline Phosphatase Troponin I C-Reactive Protein Total Protein Albumin Globulin Albumin/Globulin Ratio Urine Color Urine Appearance Urine pH Ur Specific [place] Urine Protein Urine Glucose (UA) Urine Ketones Urine Blood Urine Nitrate Urine Bilirubin Urine Urobilinogen Ur Leukocyte Esterase Urine WBC Ur Squamous Epith Cells Urine Bacteria DS: Diagnosis - Discharge Diagnosis (1) Cellulitis of right leg Status: Acute (2) Diabetic ulcer of right lower leg Status: Acute (3) Diabetes mellitus with neuropathy Status: Chronic (4) Right leg pain Status: Acute (5) Neck pain Status: Acute Discharge Plan - Patient Discharge Instructions ACTIVITY: Continue current activity DIET: continue same diet Patient Instructions: DI for Cellulitis -- Adult, Type 2 Diabetes - Follow up Plan Follow up with: Ariel Germain [Primary Care Provider] - 04/18/19 Unknown provider or service follow up:: 04/14/19 15:10 podiatry 1 week with CRP and ESR Disposition: Home Health Service Home Medications: Home Medications Medication Instructions Recorded Confirmed Type B-complex with vitamin C tablet 1 tab PO DAILY 02/25/19 04/13/19 History allopurinol 100 mg tablet 100 mg PO BID 90 Days #180 tab 02/25/19 04/13/19 History bisoprolol fumarate 5 mg tablet 2.5 mg PO DAILY 90 Days #45 tab 02/25/19 04/13/19 History clonazepam 0.5 mg tablet 0.5 mg PO QHS 30 Days #30 tab 02/25/19 04/13/19 History fluoxetine 20 mg capsule 20 mg PO DAILY 90 Days #180 cap 02/25/19 04/13/19 History gabapentin 300 mg capsule 300 mg PO HS 90 Days cap 02/25/19 04/14/19 History gabapentin 600 mg tablet 600 mg PO TID 90 Days tab 02/25/19 04/14/19 History hydrocodone 10 mg-acetaminophen 1 tab PO Q6HP PRN 30 Days #120 tab 02/25/19 04/14/19 History 325 mg tablet isosorbide mononitrate ER 60 mg 60 mg PO DAILY 90 Days #90 tab 02/25/19 04/13/19 History tablet,extended release 24 hr linagliptin 5 mg tablet 5 mg PO DAILY 90 Days tab 02/25/19 04/14/19 History magnesium 400 mg (as magnesium 400 mg PO DAILY 02/25/19 04/13/19 History oxide) capsule metolazone 2.5 mg tablet 2.5 mg PO TID 90 Days #540 tab 02/25/19 04/13/19 History potassium chloride ER 20 mEq 20 meq PO TID 90 Days tab 02/25/19 04/14/19 History tablet,extended release(part/cryst) pravastatin 40 mg tablet 40 mg PO HS 90 Days tab 02/25/19 04/14/19 History torsemide 20 mg tablet 40 mg PO BID 90 Days #360 tab 02/25/19 04/13/19 History Glucosamine Sulfate Dipot Chlr 1 tab PO DAILY 04/13/19 04/13/19 History [Glucosamine] Ropinirole HCl 2 mg PO HS 04/14/19 04/14/19 History Spironolactone [Spironolactone 25 mg PO BID 04/14/19 04/14/19 History 25mg Tablet] Tizanidine HCl 2 mg PO BIDP PRN #14 tab 04/14/19 Rx Prescriptions/Medication Reconciliation: New Tizanidine HCl 2 mg PO BIDP PRN #14 tab PRN Reason: Muscle Spasm Continued allopurinol 100 mg tablet 100 mg PO BID 90 Days #180 tab bisoprolol fumarate 5 mg tablet 2.5 mg PO DAILY 90 Days #45 tab clonazepam 0.5 mg tablet 0.5 mg PO QHS 30 Days #30 tab gabapentin 300 mg capsule 300 mg PO HS 90 Days cap gabapentin 600 mg tablet 600 mg PO TID 90 Days tab hydrocodone 10 mg-acetaminophen 325 mg tablet 1 tab PO Q6HP PRN 30 Days #120 tab PRN Reason: PAIN isosorbide mononitrate ER 60 mg tablet,extended release 24 hr 60 mg PO DAILY 90 Days #90 tab linagliptin 5 mg tablet 5 mg PO DAILY 90 Days tab metolazone 2.5 mg tablet 2.5 mg PO TID 90 Days #540 tab potassium chloride ER 20 mEq tablet,extended release(part/cryst) 20 meq PO TID 90 Days tab pravastatin 40 mg tablet 40 mg PO HS 90 Days tab torsemide 20 mg tablet 40 mg PO BID 90 Days #360 tab magnesium 400 mg (as magnesium oxide) capsule 400 mg PO DAILY fluoxetine 20 mg capsule 20 mg PO DAILY 90 Days #180 cap B-complex with vitamin C tablet 1 tab PO DAILY Glucosamine Sulfate Dipot Chlr [Glucosamine] 1 tab PO DAILY Ropinirole HCl 2 mg PO HS Spironolactone [Spironolactone 25mg Tablet] 25 mg PO BID
== END 2019-04-14 16:55 | disposition home health service (06) ==
LOC: ER 13:33 → 2ND 13:33
PROVIDERS: ADMIT Emergency Medicine; ATTEND Internal Medicine Adolescent Medicine
DX: Z88.6 Allergy status to analgesic agent; N28.9 Disorder of kidney and ureter, unspecified; Z88.5 Allergy status to narcotic agent; E78.5 Hyperlipidemia, unspecified; L03.115 Cellulitis of right lower limb; Z79.899 Other long term (current) drug therapy; Z96.653 Presence of artificial knee joint, bilateral; I25.10 Atherosclerotic heart disease of native coronary artery without angina pectoris; E11.40 Type 2 diabetes mellitus with diabetic neuropathy, unspecified; I50.9 Heart failure, unspecified; Z82.49 Family history of ischemic heart disease and other diseases of the circulatory system; Z90.49 Acquired absence of other specified parts of digestive tract; L97.919 Non-pressure chronic ulcer of unspecified part of right lower leg with unspecified severity; Z83.438 Family history of other disorder of lipoprotein metabolism and other lipidemia; Z84.1 Family history of disorders of kidney and ureter; E11.622 Type 2 diabetes mellitus with other skin ulcer; M54.2 Cervicalgia; Z83.3 Family history of diabetes mellitus; I11.0 Hypertensive heart disease with heart failure; Z79.4 Long term (current) use of insulin; Z79.891 Long term (current) use of opiate analgesic; Z90.710 Acquired absence of both cervix and uterus
CPT/HCPCS: 36415; 71010; 71045; 72040; 72070; 73590; 80048; 80053; 81001; 82962; 83605; 84484; 85025; 85651; 86140; 87040; 87086; 93005; 93971; 97161; 99282; G0378; J2543; J3370

== ENCOUNTER 2019-04-18 11:47 | Outpatient (CLI) | payer MEDICARE, SELFPAY ==
[2019-04-18] VITALS (8 sets, daily range): BP systolic 100–121; BP diastolic 49–80; PULSE 64–71; RESP 18–20; TEMP 36.5–36.7; O2SAT 97–99
--- NOTE | 2019-04-18 16:14 | PC.NURSE ---
04/18/19 1545 Pt discharged home/stable. Denies any c/o and no problems noted. VSS. Pt rosa Orbactiv with no s/s reaction or problems noted.
== END 2019-04-18 15:45 | disposition home or self-care (01) ==
LOC: INF 11:48
PROVIDERS: Visit Provider Podiatrist
DX: L03.115 Cellulitis of right lower limb (principal)
CPT/HCPCS: 96365; 96366; J2407

== ENCOUNTER → 2019-04-21 07:09 | Outpatient (CLI) | payer MEDICARE, SELFPAY ==
[2019-04-21 15:15] LABS: Erythrocyte Sedimentation Rate 73 mm/hr (0-30)
== END ==
PROVIDERS: PCP Internal Medicine; Visit Provider Nurse Practitioner Family
DX: L03.115 Cellulitis of right lower limb (principal); E11.40 Type 2 diabetes mellitus with diabetic neuropathy, unspecified
CPT/HCPCS: 36415; 85651; 86140

== ENCOUNTER → 2019-05-11 11:41 | Outpatient (CLI) | payer MEDICARE, SELFPAY ==
[2019-05-11 11:48] LABS: Microscopic, Urine URINE MICROSCOPIC (MICROSCOPIC)
[2019-05-11 13:57] LABS: Appearance,Urine CLEAR (Clear); Bilirubin,Urine Negative (Negative); Blood, Urine Negative (Negative); Color,Urine YELLOW (Yellow); Glucose,Urine (UA) Negative (Negative); Ketones,Urine Negative (Negative); Leukocyte Esterase,Urine 1+ (Negative); Nitrate,Urine Negative (Negative); PH,Urine 6.5 (5.0-8.5); Protein,Urine Negative (Negative); Urobilinogen,Urine 0.2 EU/dl (0.2)
[2019-05-11 14:38] LABS: Bacteria,Urine 1+ /lpf
== END ==
PROVIDERS: PCP Internal Medicine; Visit Provider Internal Medicine
DX: N39.0 Urinary tract infection, site not specified (principal)
CPT/HCPCS: 81001; 87086; 87088; 87186

== ENCOUNTER → 2019-07-25 08:07 | Outpatient (CLI) | payer MEDICARE, SELFPAY ==
[2019-07-25 15:04] LABS: Anion Gap 14.7 mEq/L (5-15); Calcium 9.6 mg/dL (8.5-10.1); Carbon Dioxide 29 mmol/L (21.0-32.0); Chloride 96 mmol/L (98-107); Creatinine,Serum 2.07 mg/dL (0.55-1.02); Estimated Glomerular Filt Rate 23 ml/min (>60); GFR (African American) 28 ML/MIN (>60); Glucose 144 mg/dL (74-106); Phosphorous 4.6 mg/dL (2.4-4.9); Potassium 3.7 mmoL/L (3.5-5.1); Sodium 136 mmol/L (136-145)
[2019-07-25 15:31] LABS: Blood Urea Nitrogen 111 mg/dL (7-18)
[2019-07-25 22:29] LABS: Creatinine,Urine Random 23 mg/dL (20-320); Total Protein,Urine Random 7.3 mg/dL (0.0-11.9)
== END ==
PROVIDERS: PCP Internal Medicine
DX: N18.4 Chronic kidney disease, stage 4 (severe) (principal)
CPT/HCPCS: 36415; 80069; 82570; 84155

== ENCOUNTER → 2019-08-13 13:09 | Outpatient (CLI) | payer MEDICARE, SELFPAY | LOC: LAB 13:10 → LAB.DROPOF 14:05 | PROVIDERS: Visit Provider Internal Medicine | DX: N39.0 Urinary tract infection, site not specified (principal) | CPT/HCPCS: 87086; 87088; 87186 ==

== ENCOUNTER → 2019-08-29 09:08 | Outpatient (CLI) | payer MEDICARE, SELFPAY ==
--- NOTE | 2019-08-29 09:18 | MM_ITS ---
PROCEDURE: MM DIG SCREENING MAMM BI W/CAD CLINICAL INDICATION: SCREENING Is no personal or family history of breast cancer. There have been biopsies on each breast for benign disease. COMPARISON: [facility] DIG MAMM-DX UNI-LT from 09/24/2015 [facility] DIG MAMM-SCREEN MILO W/CAD from 07/30/2017 [facility] MM Dig screening mamm BI w/CAD from 08/03/2018 TECHNIQUE: Standard CC and MLO images were obtained. R2 CAD reviewed. FINDINGS: Mild to moderate scattered fibroglandular densities are seen in both breasts. Again noted is the asymmetric area of glandular densities lower central portion left breast which is stable. There are benign-appearing microcalcifications in each breast. Again noted is a biopsy clip left breast adjacent to the asymmetric glandular elements. There is a possible asymmetric density with slightly irregular borders just superior and lateral to the nipple left breast. This likely is a summation shadow but recommend the patient return for spot compression views in the MLO and CC projection. There are no suspicious microcalcifications.. IMPRESSION: Fibrofatty parenchyma with possible asymmetric density left breast BI-RAD Category: 0 Need Additional Imaging Evaluation FOLLOW-UP: IMM Immediate Follow-up Recommended (A letter has been sent to the patient regarding results of the study.) Dictated by: Dr. Jacinto Elder MD 08/29/2019 13:[address] Jaicnto Elder MD in [place] 08/29/2019 13:12
== END ==
PROVIDERS: PCP Internal Medicine; Visit Provider Internal Medicine
DX: Z12.31 Encounter for screening mammogram for malignant neoplasm of breast (principal)
CPT/HCPCS: 77067

== ENCOUNTER → 2019-09-16 14:30 | Outpatient (CLI) | payer MEDICARE, SELFPAY ==
--- NOTE | 2019-09-16 14:37 | MM_ITS ---
PROCEDURE: MM DIG MAMM DX UNILAT LT CAD CLINICAL INDICATION: ABN MAMM Additional evaluation of possible asymmetric density left breast COMPARISON: [facility] DIG MAMM-SCREEN MILO W/CAD from 07/30/2017 [facility] MM Dig screening mamm BI w/CAD from 08/03/2018 MM DIG SCREENING MAMM BI W/CAD from 08/29/2019 TECHNIQUE: Spot-compression MLO and CC views and 90 degree lateral view FINDINGS: The distal views particularly spot-compression MLO view and 90 degree lateral view lessen concern and suggests that this density represents a summation shadow of glandular tissue. Ultrasound performed the same date showed a focal area of ductal dilatation near the expected location of this density. IMPRESSION: No persistent or suspicious mass identified on saw views and there is no ultrasound findings to suggest a suspicious lesion BI-RAD Category: 2 Benign Finding(s) FOLLOW-UP: 1YR 1 Year Follow-up (A letter has been sent to the patient regarding results of the study.) Dictated by: Dr. Jacinto Elder MD 09/21/2019 11:[address] Jacinto Elder MD in [place] 09/21/2019 11:51
--- NOTE | 2019-09-16 15:20 | US_ITS ---
PROCEDURE: US BREAST LT COMPLETE CLINICAL INDICATION: ABN MAMM Evaluation of possible asymmetric density COMPARISON: [facility] US MAMMOTOME W/CLIP LT BREAST from 09/24/2015 FINDINGS: Scanning all 4 quadrants of the breast show mildly heterogenic diffuse echogenicity. There is a small hypoechoic lesion 3 o'clock position near the nipple measuring 1.0 by point by 0.9 cm which appears to be a focally dilated duct with some internal debris. There is no other suspicious cystic or solid lesion identified. There are couple normal appearing nodes in the axilla. There is a slightly dilated duct seen immediately adjacent to this lesion. IMPRESSION: No suspicious cystic or solid lesion identified recommend the patient continue with yearly screening mammography Dictated by: Dr. Jacinto Elder MD 09/21/2019 11:[address] Jacinto Elder MD in [place] 09/21/2019 11:45
== END ==
PROVIDERS: PCP Internal Medicine; Visit Provider Internal Medicine
DX: R92.8 Other abnormal and inconclusive findings on diagnostic imaging of breast (principal)
CPT/HCPCS: 76641; 77065

== ENCOUNTER → 2019-10-08 10:23 | Outpatient (CLI) | payer MEDICARE, SELFPAY ==
--- NOTE | 2019-10-08 10:52 | XR_ITS ---
PROCEDURE: XR SHOULDER LT MIN 2V CLINICAL INDICATION: PAIN, FALL COMPARISON: None FINDINGS: No acute fracture or dislocation. There are mild osteoarthritic changes of the glenohumeral joint with superior location of the humeral head which may be seen with rotator cuff tears. There is subacromial stenosis. IMPRESSION: Mild osteoarthritis with subacromial stenosis and superior location of the humeral head which may be seen with tear of the rotator cuff. This could be confirmed with MRI if clinically desired Dictated by: Andrae Khan MD 10/08/2019 12:22 Electronically signed by Andrae Khan MD in [place] 10/08/2019 12:22
== END ==
PROVIDERS: PCP Internal Medicine; Visit Provider Internal Medicine
DX: M25.512 Pain in left shoulder (principal); W19.XXXA Unspecified fall, initial encounter
CPT/HCPCS: 73030

== ENCOUNTER → 2019-10-28 10:55 | Outpatient (CLI) | payer MEDICARE, SELFPAY | PROVIDERS: Visit Provider Internal Medicine | DX: S31.819A Unspecified open wound of right buttock, initial encounter (principal) | CPT/HCPCS: 87070; 87077; 87205 ==

== ENCOUNTER 2019-11-29 10:00 | Outpatient (RCR) | payer MEDICARE, SELFPAY | END 2019-11-29 11:00 | disposition home or self-care (01) | LOC: PT 10:00 | PROVIDERS: PCP Internal Medicine; Visit Provider Internal Medicine | DX: L98.418 Non-pressure chronic ulcer of buttock with other specified severity (principal) | CPT/HCPCS: 97161; 97164; 97597 ==

== ENCOUNTER 2019-11-30 22:42 | Observation (INO) ==
[2019-11-30 23:00] LABS: Basophils # 0.1 K/mm3 (0-0.2); Basophils % 0.8 % (0.1-2.0); Eosinophils % 0.1 % (0.1-12.0); Hematocrit 41.1 % (37.0-47.0); Hemoglobin 13.8 g/dL (12.2-16.2); Lymphocytes # 1.7 K/mm3 (0.7-4.5); Lymphocytes % 21.3 % (10-50); Mean Corpuscular HGB Conc 33.5 g/dL (31.8-35.4); Mean Corpuscular Volume 99.4 fl (81-99); Mean Platelet Volume 8.8 fl (7.4-10.4); Monocytes # 0.8 K/mm3 (0.1-1.0); Monocytes % 9.9 % (1.7-9.3); Neutrophils # 5.4 K/mm3 (1.8-7.8); Neutrophils % 67.9 % (37.0-80.0); Platelet Count 188 K/mm3 (142-424); Red Blood Count 4.13 M/mm3 (4.20-5.40); Red Cell Distribution Width 15.5 % (11.5-17.5)
[2019-11-30 23:03] LABS: Anion Gap 16.6 mEq/L (5-15); Calcium 9.8 mg/dl (8.4-10.2)
--- NOTE | 2019-11-30 23:27 | Emergency Department Note ---
ED Disposition Clinical Impression: Chest pain Disposition: Admitted as Observation Condition on Discharge: Good Instructions: DI for Atypical Chest Pain Additional Instructions: Spoke to Dr. Damon about this patient and agreed to admit secondary to his acute kidney injury and atypical chest pain. Referrals: Ariel Germain [Primary Care Provider] - - Critical Care Critical Care Time: No Attestation: On 11/30/19, the high probability of a clinically significant, sudden or life threatening deterioration of the following system(s) required my full and direct attention, intervention and personal management. The time I documented below is in addition to time spent performing reported procedures but includes the following listed in this critical care notation. Medical Decision Making - Medical Records Medical records reviewed: Yes: I reviewed the patient's medical records. - Gilles Inquiry Pt receiving controlled substance: No Vital Signs: 11/30/19 22:43 12/01/19 00:11 12/01/19 00:25 Temperature 97.4 F L Temperature Source Oral Pulse Rate [Right] 69 60 Respiratory Rate 16 14 Blood Pressure [Right Arm] 92/48 L 92/49 L Blood Pressure Mean [Right Arm] 62 63 Blood Pressure Source [Right Arm] Automatic Cuff Automatic Cuff Blood Pressure Position [Right Arm] Supine Supine 02 Sat by Pulse Oximetry 100 99 Oxygen Delivery Method Room Air Room Air - Lab Data Lab results reviewed: Yes: I reviewed the patient's lab results. Lab Results 11/30/19 22:45: WBC 8.0, RBC 4.13 L, Hgb 13.8, Hct 41.1, MCV 99.4 H, MCH 33.3 H, MCHC 33.5, RDW 15.5, Plt Count 188, MPV 8.8, Neut % (Auto) 67.9, Lymph % (Auto) 21.3, [place] % (Auto) 9.9 H, Eos % (Auto) 0.1, Baso % (Auto) 0.8, Neut # (Auto) 5.4, Lymph # (Auto) 1.7, [place] # (Auto) 0.8, Eos # (Auto) 0.0, Baso # (Auto) 0.1 11/30/19 22:45: Sodium 134 L, Potassium 5.6 H, Chloride 96 L, Carbon Dioxide 27, Anion Gap 16.6 H, BUN 104 H*, Creatinine 2.50 H, Estimated Creat Clear 29, Estimated GFR 19 L*, Est GFR ( Amer) 22 L, Glucose 176 H, Calcium 9.8 11/30/19 22:45: NT-Pro-B Natriuret Pep 615 H 11/30/19 22:45: Troponin I < 0.01 Result diagrams: 11/30/19 22:45 11/30/19 22:45 Orders (Tests/Meds): ED MEDICATIONS Discontinued Medications Generic Name Dose Route Start Last Admin Trade Name Mónica PRN Reason Stop Dose Admin Aspirin 324 mg 11/30/19 22:52 11/30/19 22:54 Aspirin 81mg Chewable Tablet PO 11/30/19 22:53 324 mg ONCE ONE Administration ORDERS Category Date Time Status XR chest portable Stat Exams 11/30/19 22:52 Taken Troponin I Q3H Lab 12/01/19 02:45 Ordered Troponin I Q3H Lab 12/01/19 05:45 Ordered - ECG Data Tracing #1 Normal Sinus Rhythm: Yes General Adult HPI - General Chief complaint: Chest Pain Stated complaint: Left shoulder pain Time Seen by Provider: 11/30/19 23:20 Mode of Arrival: Wheelchair Source of Information: Patient Limitations: No Limitations Description of Symptoms (Recalled from ER Triage Doc. by RN): Pt states she has left shoulder pain tonight - History of Present Illness HPI narrative: 79-year-old female presents the ED complaining of left shoulder pain radiating up to her left neck into the jaw. She states that the pain started about 5 PM and lasted for couple hours and then came back earlier this evening. She denies any specific chest pain or shortness of breath. She also denies any diaphoresis. She has had a couple catheterizations done the last one was done 4 years ago and they said she had some small blockages but nothing that needed to be intervened at that time. Patient states that the pain is a sharp sensation and rates her pain 5 out of 10. She states alleviating factors include rest and non-movement non-turning of her neck but exacerbating factors are movement and turning of her neck. She also denies any recent fever shakes or chills. And she also denies any recent nausea or vomiting. She does have a few cardiac risk factors including diabetes mellitus type 2 that is uncontrolled, hypertension, and hyperlipidemia. She denies smoking. - Related Data Home Medications Medication Instructions Recorded Confirmed B-complex with vitamin C 1 tab PO DAILY 02/25/19 12/01/19 allopurinol 100 mg tablet 100 mg PO BID 90 Days #180 tab 02/25/19 12/01/19 bisoprolol fumarate 5 mg tablet 2.5 mg PO DAILY 90 Days #45 tab 02/25/19 12/01/19 clonazepam 0.5 mg tablet 0.5 mg PO QHS 30 Days #30 tab 02/25/19 12/01/19 fluoxetine 20 mg capsule 20 mg PO DAILY 90 Days #180 cap 02/25/19 12/01/19 gabapentin 300 mg capsule 300 mg PO HS 90 Days cap 02/25/19 12/01/19 gabapentin 600 mg tablet 600 mg PO TID 90 Days tab 02/25/19 12/01/19 hydrocodone 10 mg-acetaminophen 1 tab PO Q6HP PRN 30 Days #120 tab 02/25/19 12/01/19 325 mg tablet isosorbide mononitrate 60 mg 60 mg PO DAILY 90 Days #90 tab 02/25/19 12/01/19 tablet,extended release 24 hr linagliptin 5 mg tablet 5 mg PO DAILY 90 Days tab 02/25/19 12/01/19 magnesium oxide 400 mg PO DAILY 02/25/19 12/01/19 metolazone 2.5 mg tablet 2.5 mg PO TID 90 Days #540 tab 02/25/19 12/01/19 potassium chloride 20 mEq 20 meq PO TID 90 Days tab 02/25/19 12/01/19 tablet,extended release(part/cryst) pravastatin 40 mg tablet 40 mg PO HS 90 Days tab 02/25/19 12/01/19 torsemide 20 mg tablet 40 mg PO BID 90 Days #360 tab 02/25/19 12/01/19 Glucosamine Sulfate Dipot Chlr 1 tab PO DAILY 04/13/19 12/01/19 [Glucosamine] Ropinirole HCl 2 mg PO HS 04/14/19 12/01/19 Spironolactone [Spironolactone 25 mg PO BID 04/14/19 12/01/19 25mg Tablet] Insulin Aspart [Novolog Flexpen] 60 unit SQ DAILY 12/01/19 12/01/19 Insulin Aspart [Novolog Flexpen] 70 unit SQ PM 12/01/19 12/01/19 Previous Rx's Medication Instructions Recorded Tizanidine HCl 2 mg PO BIDP PRN #14 tab 04/14/19 Allergies Allergy/AdvReac Type Severity Reaction Status Date / Time oxycodone [OXYCODONE] Allergy Unknown Verified 10/24/19 13:16 acetaminophen [From Percocet] AdvReac Severe Verified 10/24/19 13:16 [facility] History - Hepatitis A Screen Drug use history?: No High risk sexual behaviors?: No History of sexually transmitted infection?: No Currently employed?: No Childcare worker?: No Do you have indoor plumbing?: Yes Do you have electricity?: Yes Attestation statement:: This patient has been screened for Hepatitis A risk factors. I have reviewed the patient's past medical history: Yes Medical History: Reports:: Congestive Heart Failure, Coronary Artery Disease, Hyperlipidemia, Hypertension, Renal Disease, Renal Insufficiency Denies:: Cancer, Diabetes Mellitus Type 1, Diabetes Mellitus Type 2, Internal Pacemaker, MRSA Other Medical History: Reports: Arthritis Laterality Cases: Left: Arthroscopy Knee, Right: Arthroscopy Shoulder, Carpal Tunnel Release, Bilateral: Total Knee Replacement Other Surgeries: Yes: Cholecystectomy, Hysterectomy-Total, Other. No: Pacemaker Amputation: No Comment: left foot tendon, samuel knee replacement, lapchole x2, thumb, right arm ulner nerve repair, bladder stim - Social History Smoking Status: Former smoker Tobacco Type: cigarettes Alcohol Intake: never Substance Use Type: denies use Occupational Status: retired Housing: house Household Members: family Family Hx:: Kidney Disease, Hypertension, Hyperlipidemia, Diabetes, Coronary Artery Disease ROS Obtained: Yes All systems reviewed & no additional complaints - Constitutional Constitutional: Reports system reviewed and no additional complaints, except as docu - Eyes Eyes: Reports system reviewed and no additional complaints, except as docu - ENT Ears, Nose, Mouth, and Throat: Reports system reviewed and no additional complaints, except as docu - Cardiovascular Cardiovascular: Reports system reviewed and no additional complaints, except as docu - Respiratory Respiratory: Yes system reviewed and no additional complaints, except as docu - Gastrointestinal Gastrointestingal: Reports: system reviewed and no additional complaints, except as docu - Genitourinary Male Genitourinary: Reports system reviewed and no additional complaints, except as docu Female Genitourinary: Reports system reviewed and no additional complaints, except as docu - Musculoskeletal Musculoskeletal: Reports system reviewed and no additional complaints, except as docu - Integumentary/Breasts Skin/Breast: Reports system reviewed and no additional complaints, except as docu - Neurologic Neurologic: Reports system reviewed and no additional complaints, except as docu - Endocrine Endocrine: Reports system reviewed and no additional complaints, except as docu - Hematologic/Lymphatic Henatologic/Lymphatic: Reports system reviewed and no additional complaints, except as docu - Allergic/Immunologic Allergic/Immunologic: Reports system reviewed and no additional complaints, except as docu Physical Exam - General General appearance: alert, in no apparent distress - Head Head exam: atraumatic - Eye Eye exam: Present: normal appearance - ENT ENT exam: Present: normal exam - Neck Neck exam: Present: normal inspection - Chest Chest inspection: Present: normal inspection - Respiratory Respiratory exam: Present: normal lung sounds bilaterally - Cardiovascular Cardiovascular exam: Present: regular rate - Abdominal Exam Abdominal exam: Present: soft - External exam: Present: normal external exam - Extremities Exam Extremities exam: Present: normal inspection - Back Exam Back exam: Present: normal inspection - Neurological Exam Neurological exam: Present: alert, oriented X3 - Psychiatric Psychiatric exam: Present: normal affect - Lymphatic Lymphatic Findings: no adenopathy
--- NOTE | 2019-12-01 07:44 | Pharmacy Consult Notes ---
[facility] Pharmacy VTE Monitoring - Patient Demographics Admission date: 12/01/19 Report Date: 12/01/19 Time: 07:44 Allergies/Adverse Reactions: Patient Allergies oxycodone [OXYCODONE] Allergy (Unknown, Verified 12/01/19 02:06) acetaminophen [From Percocet] Adverse Reaction (Severe, Verified 12/01/19 02:06) Height: 1.78 m Weight: 102.994 kg Patient Problems: Current Active Problems Chest pain (Acute) - VTE Risk Labs: VTE Related Lab Results Hgb 13.8 g/dL (12.2-16.2) 11/30/19 22:45 Hct 41.1 % (37.0-47.0) 11/30/19 22:45 Plt Count 188 K/mm3 (142-424) 11/30/19 22:45 BUN 104 mg/dl (7-17) H* 11/30/19 22:45 Creatinine 2.50 mg/dl (0.52-1.04) H 11/30/19 22:45 Estimated Creat Clear 29 mL/min (50-200) 11/30/19 22:45 VTE Score: 9 VTE Risk Level: Moderate Risk - Prophylaxis VTE Prophylaxis Ordered?: Yes Types of VTE Prophylaxis: TEDS Knee High Location of Applied Device: Bilateral Lower Extremeties
--- NOTE | 2019-12-01 08:59 | Consult Report ---
History of Present Illness Consult date: 12/01/19 Requesting physician: Fransisco Damon Consult reason: chest pain Chief complaint: back pain Additional Medical History:: 1. DM, treated for 40 yrs, insulin requiring A. CKD B. Peripheral neuropathy 2. Mild CAD by cardiac cath, approximately 2014, Dr. Goodrich, [place], [place] 3. Chronic kidney disease, stage III-IV 4. Remote tobacco use discontinued age 28 5. Hypertension 6. Hyperlipidemia History of present illness: 79-year-old female presents the ED complaining of left shoulder pain radiating up to her left neck into the jaw. She states that the pain started about 5 PM and lasted for couple hours and then came back earlier this evening. She denies any specific chest pain or shortness of breath. She also denies any diaphoresis. She has had a couple catheterizations done the last one was done 4 years ago and they said she had some small blockages but nothing that needed to be intervened at that time. Patient states that the pain is a sharp sensation and rates her pain 5 out of 10. She states alleviating factors include rest and non-movement non-turning of her neck but exacerbating factors are movement and turning of her neck. She also denies any recent fever shakes or chills. And she also denies any recent nausea or vomiting. She does have a few cardiac risk factors including diabetes mellitus type 2 that is uncontrolled, hypertension, and hyperlipidemia. She denies smoking. I agree with the above per Dr. Adams Pt confirms above. Still with discomfort this AM. STAT echo this AM appears to show normal LVEF without evidence of significant valve disease or pericardial effusion. EKG is sinus with RBBB. No acute ST segment changes. Troponins normal X 3. [facility] History Medical History: Reports:: Congestive Heart Failure, Coronary Artery Disease, Hyperlipidemia, Hypertension, Peripheral Artery Disease, Peripheral Vascular Disease, Renal Disease, Renal Insufficiency Denies:: Cancer, Diabetes Mellitus Type 1, Diabetes Mellitus Type 2, Internal Pacemaker, MRSA *Have you ever received a pneumonia vaccine?: Yes (2018) *Have you received a flu vaccine this season?: Yes Other Medical History: Reports: Arthritis, Cataracts Laterality Cases: Left: Arthroscopy Knee, Breast Biopsy, Right: Arthroscopy Shoulder, Carpal Tunnel Release, Bilateral: Cataract, Total Knee Replacement Other Surgeries: Yes: Cardiac Catheterization, Cholecystectomy, Colonoscopy, Hys terectomy-Total, Other. No: Pacemaker Amputation: No (lumbar fusion) Fractures: Yes (left thumb,) - *Social History Educational Level: Completed [employer] Smoking Status: Former smoker Tobacco Type: cigarettes # Packs/Day (cigarettes): 1 #Yrs smoked (if former smoker): 9 Alcohol Intake: never Substance Use Type: denies use *Occupational Status:: retired, disabled Housing: house Household Members: children *Travel in the last 8 weeks: None Family Hx:: Cancer, Coronary Artery Disease, Diabetes, Heart Attack, Hyperlipidemia, Hypertension, Kidney Disease, Substance abuse, Alcoholism Meds Home Medications Medication Instructions Recorded Confirmed Type B-complex with vitamin C 1 tab PO DAILY 02/25/19 12/01/19 History allopurinol 100 mg tablet 100 mg PO BID 90 Days #180 tab 02/25/19 12/01/19 History bisoprolol fumarate 5 mg tablet 2.5 mg PO DAILY 90 Days #45 tab 02/25/19 12/01/19 History clonazepam 0.5 mg tablet 0.5 mg PO QHS 30 Days #30 tab 02/25/19 12/01/19 History fluoxetine 20 mg capsule 20 mg PO DAILY 90 Days #180 cap 02/25/19 12/01/19 History gabapentin 300 mg capsule 300 mg PO HS 90 Days cap 02/25/19 12/01/19 History gabapentin 600 mg tablet 600 mg PO TID 90 Days tab 02/25/19 12/01/19 History hydrocodone 10 mg-acetaminophen 1 tab PO Q6HP PRN 30 Days #120 tab 02/25/19 12/01/19 History 325 mg tablet isosorbide mononitrate 60 mg 60 mg PO DAILY 90 Days #90 tab 02/25/19 12/01/19 History tablet,extended release 24 hr linagliptin 5 mg tablet 5 mg PO DAILY 90 Days tab 02/25/19 12/01/19 History magnesium oxide 400 mg PO DAILY 02/25/19 12/01/19 History metolazone 2.5 mg tablet 2.5 mg PO TID 90 Days #540 tab 02/25/19 12/01/19 History potassium chloride 20 mEq 20 meq PO TID 90 Days tab 02/25/19 12/01/19 History tablet,extended release(part/cryst) pravastatin 40 mg tablet 40 mg PO HS 90 Days tab 02/25/19 12/01/19 History torsemide 20 mg tablet 40 mg PO BID 90 Days #360 tab 02/25/19 12/01/19 History Glucosamine Sulfate Dipot Chlr 1 tab PO DAILY 04/13/19 12/01/19 History [Glucosamine] Ropinirole HCl 2 mg PO HS 04/14/19 12/01/19 History Spironolactone [Spironolactone 25 mg PO BID 04/14/19 12/01/19 History 25mg Tablet] Tizanidine HCl 2 mg PO BIDP PRN #14 tab 04/14/19 12/01/19 Rx Insulin Aspart [Novolog Flexpen] 60 unit SQ DAILY 12/01/19 12/01/19 History Insulin Aspart [Novolog Flexpen] 70 unit SQ PM 12/01/19 12/01/19 History Allergies Allergy/AdvReac Type Severity Reaction Status Date / Time oxycodone [OXYCODONE] Allergy Unknown Verified 12/01/19 02:06 acetaminophen [From Percocet] AdvReac Severe Verified 12/01/19 02:06 Review of Systems - Review of Systems Review of systems:: pertinent systems reviewed and negative unless documented below - *Cardiovascular Reports chest pain - *Respiratory Denies shortness of breath - *Gastrointestinal Denies abdominal pain, Denies nausea, Denies vomiting - *Genitourinary Denies blood in urine - *Musculoskeletal Reports joint pain, Reports back pain - *Neurologic Denies dizziness, Denies fainting Exam Vital signs and Labs for Last 24 Hours: Temp Pulse Resp BP Pulse Ox 96.8 F L 63 17 74/35 L 96 12/01/19 07:58 12/01/19 07:58 12/01/19 07:58 12/01/19 07:58 12/01/19 07:58 Laboratory Results - last 24 hr 11/30/19 22:45: WBC 8.0, RBC 4.13 L, Hgb 13.8, Hct 41.1, MCV 99.4 H, MCH 33.3 H, MCHC 33.5, RDW 15.5, Plt Count 188, MPV 8.8, Neut % (Auto) 67.9, Lymph % (Auto) 21.3, [place] % (Auto) 9.9 H, Eos % (Auto) 0.1, Baso % (Auto) 0.8, Neut # (Auto) 5.4, Lymph # (Auto) 1.7, [place] # (Auto) 0.8, Eos # (Auto) 0.0, Baso # (Auto) 0.1 11/30/19 22:45: Sodium 134 L, Potassium 5.6 H, Chloride 96 L, Carbon Dioxide 27, Anion Gap 16.6 H, BUN 104 H*, Creatinine 2.50 H, Estimated Creat Clear 29, Estimated GFR 19 L*, Est GFR ( Amer) 22 L, Glucose 176 H, Calcium 9.8 11/30/19 22:45: NT-Pro-B Natriuret Pep 615 H 11/30/19 22:45: Troponin I < 0.01 12/01/19 02:50: Troponin I < 0.01 12/01/19 05:49: Troponin I < 0.01 12/01/19 05:59: POC Glucose 146 H I & O for Last 24 hours: Intake & Output 11/28/19 11/29/19 11/30/19 12/01/19 11:59 11:59 11:59 11:59 Intake Total 211 / 211 Balance 211 / 211 Weight 227 lb 1 oz - *Routine HEENT Exam Head: Present: normocephalic Eye: Present: EOMI, PERRL ENT: Present: mucous membranes moist - *Routine Neck Exam Present: supple. Absent: JVD, carotid bruit - *Routine Respiratory Exam Present: CTA bilaterally. Absent: accessory muscle use, rales, rhonchi, wheezes - *Routine Cardiovascular Exam Present: RRR. Absent: murmur, gallop, rubs - *Routine Abdominal Exam Present: soft. Absent: tenderness, distended, guarding - *Routine Extremities Exam Present: edema. Absent: calf tenderness - *Routine Neurological Exam Present: alert, oriented X3, moving all extremities Assessment and Plan (1) Back pain Current visit: Yes Status: Acute Category: Medical Code(s): M54.9 - Dorsalgia, unspecified (2) Hypertension Current visit: Yes Status: Acute Category: Medical Code(s): I10 - Essential (primary) hypertension (3) Hyperlipidemia associated with type 2 diabetes mellitus Current visit: Yes Status: Acute Category: Medical Code(s): E11.69 - Type 2 diabetes mellitus with other specified complication; E78.5 - Hyperlipidemia, unspecified (4) Chest pain Current visit: Yes Status: Acute Category: Medical Code(s): R07.9 - Chest pain, unspecified (5) Neck pain Current visit: No Status: Acute Category: Medical Code(s): M54.2 - Cervicalgia (6) Diabetes mellitus with neuropathy Current visit: No Status: Chronic Category: Medical Code(s): E11.40 - Type 2 diabetes mellitus with diabetic neuropathy, unspecified - Assessment and plan all Dx Assessment and Plan for all problems:: 1. Greater than 12 hours of left scapular pain (reproducible with palpation) with radiation into the left arm and neck with normal troponins x3 and EKG showing sinus rhythm with right bundle branch block and no acute ST segment changes. History of mild coronary disease by cardiac catheterization, approximately 2014, per patient. Will obtain a stat echocardiogram to evaluate left ventricular function. If LV function is normal then consider CAT scan for further evaluation of back and chest pain, although chronic kidney disease prevents use of contrast. Patient with longstanding history of hypertension and diabetes and peripheral neuropathy. 2. Hypotension, patient appears to be slightly dehydrated over her baseline chronic kidney disease (Cr around 2 and GFR in the low 20's range). Will continue IV fluids and hold diuretics at this time. 3. Musculoskeletal back pain, unable to give adequate analgesic other than Tylenol due to low blood pressure. 4. Longstanding diabetes mellitus insulin requiring
--- NOTE | 2019-12-01 11:13 | History & Physical Report ---
*Admission Date: 12/01/19 *Chief complaint: Chest, back, neck pain *History of present illness: This 79-year-old white female patient of Dr. Germain presented in the emergency room with complaints of back pain, and chest pain with radiation up into the neck. She has a history of coronary artery disease and is followed by Dr. Buzz Ramos in [place]. She has had 3 heart catheterizations and states that she has 3 blockages in her coronary arteries. She is never had stents placed. She has a strong family history of coronary artery disease. Her parents had coronary artery disease in her siblings as well. The patient is diabetic and has chronic kidney disease as well. Apparently she was quite ill when she was admitted. Her blood pressure was running very low, with systolic below 80. Her heart rate was 60. She has received supplemental IV fluids. After being seen by cardiology her IV fluid ra te was turned up to 250 cc an hour. At the time that I am seeing her this morning, her color is good and she seems improved. Her blood pressure is 103/49. Her troponins have been negative. [facility] History Medical History: Reports:: Congestive Heart Failure, Coronary Artery Disease ("3 blockages "), Hyperlipidemia, Hypertension, Peripheral Artery Disease, Jessy pheral Vascular Disease, Renal Disease, Renal Insufficiency Denies:: Cancer, Diabetes Mellitus Type 1, Diabetes Mellitus Type 2, Internal Pacemaker, MRSA *Have you ever received a pneumonia vaccine?: Yes (2018) *Have you received a flu vaccine this season?: Yes Other Medical History: Reports: Arthritis, Cataracts Laterality Cases: Left: Arthroscopy Knee, Breast Biopsy, Right: Arthroscopy Shoulder, Carpal Tunnel Release, Bilateral: Cataract, Total Knee Replacement Other Surgeries: Yes: Cardiac Catheterization, Cholecystectomy, Colonoscopy, Hysterectomy-Total, Other. No: Pacemaker Amputation: No (lumbar fusion) Fractures: Yes (left thumb,) - *Social History Educational Level: Completed [employer] Smoking Status: Former smoker Tobacco Type: cigarettes # Packs/Day (cigarettes): 1 #Yrs smoked (if former smoker): 9 Alcohol Intake: never Substance Use Type: denies use *Occupational Status:: retired (Worked as a preschool teacher.), disabled Housing: house Household Members: children *Travel in the last 8 weeks: None Family Hx:: Cancer, Coronary Artery Disease, Diabetes, Heart Attack, Hyperlipidemia, Hypertension, Kidney Disease, Substance abuse, Alcoholism Review of Systems - Constitutional Denies body ache(s), Denies chills - Eyes Denies change in vision - *Cardiovascular Reports chest pain, Reports lightheadedness, Denies irregular heart rhythm, Denies rapid, pounding, or irregular heartbeat - *Respiratory Denies chest congestion, Denies cough - *Gastrointestinal Denies abdominal pain - *Musculoskeletal Reports back pain (Particularly at the scapula bilaterally. She has chronic low back pain.) - *Neurologic Denies dizziness, Denies fainting Meds Home Medications Medication Instructions Recorded Confirmed Type B-complex with vitamin C 1 tab PO DAILY 02/25/19 12/01/19 History allopurinol 100 mg tablet 100 mg PO BID 90 Days #180 tab 02/25/19 12/01/19 History bisoprolol fumarate 5 mg tablet 2.5 mg PO DAILY 90 Days #45 tab 02/25/19 12/01/19 History clonazepam 0.5 mg tablet 0.5 mg PO HS 30 Days #30 tab 02/25/19 12/01/19 History gabapentin 300 mg capsule 300 mg PO HS 90 Days cap 02/25/19 12/01/19 History gabapentin 600 mg tablet 600 mg PO TID 90 Days tab 02/25/19 12/01/19 History hydrocodone 10 mg-acetaminophen 1 tab PO Q6HP PRN 30 Days #120 tab 02/25/19 12/01/19 History 325 mg tablet isosorbide mononitrate 60 mg 60 mg PO DAILY 90 Days #90 tab 02/25/19 12/01/19 History tablet,extended release 24 hr linagliptin 5 mg tablet 5 mg PO DAILY 90 Days tab 02/25/19 12/01/19 History magnesium oxide 400 mg PO DAILY 02/25/19 12/01/19 History metolazone 2.5 mg tablet 5 mg PO TID 90 Days #540 tab 02/25/19 12/01/19 History potassium chloride 20 mEq 60 meq PO TID 90 Days tab 02/25/19 12/01/19 History tablet,extended release(part/cryst) pravastatin 40 mg tablet 40 mg PO HS 90 Days tab 02/25/19 12/01/19 History torsemide 20 mg tablet 40 mg PO BID 90 Days #360 tab 02/25/19 12/01/19 History Glucosamine Sulfate Dipot Chlr 1 tab PO DAILY 04/13/19 12/01/19 History [Glucosamine] Spironolactone [Spironolactone 25 mg PO BID 04/14/19 12/01/19 History 25mg Tablet] Tizanidine HCl 2 mg PO BIDP PRN #14 tab 04/14/19 12/01/19 Rx Fluoxetine HCl 40 mg PO DAILY 12/01/19 12/01/19 History Insulin Aspart [Novolog Flexpen] 60 unit SQ DAILY 12/01/19 12/01/19 History Insulin Aspart [Novolog Flexpen] 70 unit SQ PM 12/01/19 12/01/19 History Ropinirole HCl [Requip 1mg Tablet] 2 mg PO HS 12/01/19 12/01/19 History Allergies Allergy/AdvReac Type Severity Reaction Status Date / Time oxycodone [OXYCODONE] Allergy Unknown Verified 12/01/19 02:06 acetaminophen [From Percocet] AdvReac Severe Verified 12/01/19 02:06 Exam Vital signs and Labs for Last 24 Hours: Temp Pulse Resp BP Pulse Ox 98.7 F 70 17 74/35 L 96 12/01/19 09:02 12/01/19 08:00 12/01/19 07:58 12/01/19 07:58 12/01/19 07:58 Laboratory Results - last 24 hr 11/30/19 22:45: WBC 8.0, RBC 4.13 L, Hgb 13.8, Hct 41.1, MCV 99.4 H, MCH 33.3 H, MCHC 33.5, RDW 15.5, Plt Count 188, MPV 8.8, Neut % (Auto) 67.9, Lymph % (Auto) 21.3, [place] % (Auto) 9.9 H, Eos % (Auto) 0.1, Baso % (Auto) 0.8, Neut # (Auto) 5.4, Lymph # (Auto) 1.7, [place] # (Auto) 0.8, Eos # (Auto) 0.0, Baso # (Auto) 0.1 11/30/19 22:45: Sodium 134 L, Potassium 5.6 H, Chloride 96 L, Carbon Dioxide 27, Anion Gap 16.6 H, BUN 104 H*, Creatinine 2.50 H, Estimated Creat Clear 29, Estimated GFR 19 L*, Est GFR ( Amer) 22 L, Glucose 176 H, Calcium 9.8 11/30/19 22:45: NT-Pro-B Natriuret Pep 615 H 11/30/19 22:45: Troponin I < 0.01 12/01/19 02:50: Troponin I < 0.01 12/01/19 05:49: Troponin I < 0.01 12/01/19 05:59: POC Glucose 146 H I & O for Last 24 hours: Intake & Output 11/28/19 11/29/19 11/30/19 12/01/19 11:59 11:59 11:59 11:59 Intake Total Balance Weight 227 lb 1 oz - Constitutional no acute distress, somnolent - *Routine HEENT Exam Eye: Present: EOMI, PERRL, normal accommodation ENT: Present: mucous membranes moist. Absent: dentition normal (Edentulous) - *Routine Neck Exam Absent: JVD, carotid bruit, lymphadenopathy - Routine Chest/Breast/Axilla Exam Chest wall: Present: tenderness (Tender near the scapula bilaterally.) - *Routine Respiratory Exam Present: CTA bilaterally - *Routine Cardiovascular Exam Present: RRR (No ectopics). Absent: murmur - *Routine Abdominal Exam Present: soft, obese. Absent: tenderness, distended - *Routine Extremities Exam Present: edema (Evidence of chronic edema, varicosities, stasis changes.) - *Routine Skin Exam Present: intact - *Routine Neurological Exam Present: oriented X3 (Seems a bit drowsy but answers questions appropriately.) Assessment and Plan (1) Coronary artery disease Current visit: Yes Status: Acute Category: Medical Code(s): I25.10 - Atherosclerotic heart disease of [place] coronary artery without angina pectoris (2) Back pain Current visit: Yes Status: Acute Category: Medical Code(s): M54.9 - Dorsalgia, unspecified (3) Type 2 diabetes mellitus Current visit: Yes Status: Acute Category: Medical Code(s): E11.9 - Type 2 diabetes mellitus without complications (4) Chest pain Current visit: Yes Status: Acute Category: Medical Code(s): R07.9 - Chest pain, unspecified (5) Upper back pain Current visit: Yes Status: Acute Category: Medical Code(s): M54.9 - Dorsalgia, unspecified (6) Hypertension Current visit: Yes Status: Acute Category: Medical Code(s): I10 - Essential (primary) hypertension (7) Hyperlipidemia associated with type 2 diabetes mellitus Current visit: Yes Status: Acute Category: Medical Code(s): E11.69 - Type 2 diabetes mellitus with other specified complication; E78.5 - Hyperlipidemia, unspecified (8) Neck pain Current visit: No Status: Acute Category: Medical Code(s): M54.2 - Cervicalgia (9) Diabetes mellitus with neuropathy Current visit: No Status: Chronic Category: Medical Code(s): E11.40 - Type 2 diabetes mellitus with diabetic neuropathy, unspecified (10) Chronic renal disease Current visit: Yes Status: Acute Category: Medical Code(s): N18.9 - Chronic kidney disease, unspecified - Assessment and plan all Dx Assessment and Plan for all problems:: See cardiology consult. Patient has had echocardiogram and has had a CT scan. The scan was to rule out possibility of aortic dissection. The patient's hypotension has improved dramatically with IV fluids.
[2019-12-01 14:09] LABS: Microscopic, Urine URINE MICROSCOPIC (MICROSCOPIC)
[2019-12-01 14:39] LABS: Appearance,Urine CLEAR (Clear); Bilirubin,Urine Negative (Negative); Blood, Urine Negative (Negative); Color,Urine YELLOW (Yellow); Glucose,Urine (UA) Negative (Negative); Ketones,Urine TRACE (Negative); Leukocyte Esterase,Urine TRACE (Negative); Protein,Urine Negative (Negative); Specific Gravity, Urine 1.015 (1.005-1.030); Urobilinogen,Urine 0.2 EU/dl (0.2)
[2019-12-01 15:56] LABS: Amorphous Sediment,Urine 1+ /lpf; Squamous Epithelial Cell,Urine Occasional #/hpf (0-5)
[2019-12-02 08:10] LABS: Calcium 8.6 mg/dl (8.4-10.2)
--- NOTE | 2019-12-02 08:44 | Electrocardiograph Report ---
APPROVED REPORT Exam: Resting ECG HR:59 bpm ECG Measurements Heart Rate 59 AXES W[place] 238 P 64 QRSd 132 QRS -34 QT 454 T13 QTc 449 <Conclusion> Sinus bradycardia with sinus arrhythmia with 1st degree AV block Left axis deviation Right bundle branch block Abnormal ECG Electronically signed by : Surjit Yang, 12/02/2019 08:44:11
--- NOTE | 2019-12-02 08:45 | Electrocardiograph Report ---
APPROVED REPORT Exam: Resting ECG HR:65 bpm ECG Measurements Heart Rate 65 AXES GA 236 P 52 QRSd 144 QRS -50 QT 456 T6 QTc 474 <Conclusion> Sinus rhythm with 1st degree AV block Right bundle branch block Left anterior fascicular block Bifascicular block Abnormal ECG Electronically signed by : Surjit Yang, 12/02/2019 08:44:24
--- NOTE | 2019-12-02 08:51 | Progress Note ---
Internal Medicine - PN: Subj *Date: 12/02/19 *Time: 08:48 Interval history: With her systolic blood pressure running consistently below 100 yesterday she was moved to the unit and was started on phenylephrine IV. When the phenylephrine was turned off the blood pressure would drop below 100. With that on it would be greater than 100 systolic. She states that she feels well this morning. She did not get up in a chair at all yesterday. Her ejection fraction on the echocardiogram was read as 55 to 60%. Exam Vital signs and Labs for Last 24 Hours: Temp Pulse Resp BP Pulse Ox 97.5 F L 68 18 90/48 L 94 L 12/02/19 08:00 12/02/19 08:00 12/02/19 08:00 12/02/19 08:00 12/02/19 08:00 Laboratory Results - last 24 hr 12/01/19 14:02: Urine Color Yellow, Urine Appearance Clear, Urine pH 5.0, Ur Specific [place] 1.015, Urine Protein Negative, Urine Glucose (UA) Negative, Urine Ketones Trace, Urine Blood Negative, Urine Nitrate Negative, Urine Bilirubin Negative, Urine Urobilinogen 0.2, Ur Leukocyte Esterase Trace, Urine RBC None, Urine WBC 10-20, Ur Squamous Epith Cells Occasional, Amorphous Sediment 1+, Urine Bacteria None 12/01/19 20:21: POC Glucose 232 H 12/02/19 07:30: Sodium 136, Potassium 5.0, Chloride 104, Carbon Dioxide 22, Anion Gap 15.0, BUN 103 H*, Creatinine 2.70 H, Estimated Creat Clear 28, Est imated GFR 18 L*, Est GFR ( Amer) 21 L, Glucose 92, Calcium 8.6 D I & O for Last 24 hours: Intake & Output 11/29/19 11/30/19 12/01/19 12/02/19 11:59 11:59 11:59 11:59 Intake Total 211 / 211 2906 / 2906 Balance 2906 / 2906 Weight 227 lb 1 oz 235 lb 3 oz - Constitutional no acute distress (Color is good) - *Routine HEENT Exam Head: Present: normocephalic ENT: Present: mucous membranes moist - *Routine Neck Exam Absent: JVD - *Routine Respiratory Exam Present: CTA bilaterally, rales (A few bibasilar rales are present.) - *Routine Abdominal Exam Present: soft. Absent: tenderness - *Routine Extremities Exam Present: ESTUARDO stockings Assessment and Plan (1) Coronary artery disease Current visit: Yes Status: Acute Category: Medical Code(s): I25.10 - Atherosclerotic heart disease of [place] coronary artery without angina pectoris (2) Back pain Current visit: Yes Status: Acute Category: Medical Code(s): M54.9 - Dorsalgia, unspecified (3) Type 2 diabetes mellitus Current visit: Yes Status: Acute Category: Medical Code(s): E11.9 - Type 2 diabetes mellitus without complications (4) Chest pain Current visit: Yes Status: Acute Category: Medical Code(s): R07.9 - Chest pain, unspecified (5) Upper back pain Current visit: Yes Status: Acute Category: Medical Code(s): M54.9 - Dorsalgia, unspecified (6) Hypertension Current visit: Yes Status: Acute Category: Medical Code(s): I10 - Essential (primary) hypertension (7) Hyperlipidemia associated with type 2 diabetes mellitus Current visit: Yes Status: Acute Category: Medical Code(s): E11.69 - Type 2 diabetes mellitus with other specified complication; E78.5 - Hyperlipidemia, unspecified (8) Neck pain Current visit: No Status: Acute Category: Medical Code(s): M54.2 - Cervicalgia (9) Diabetes mellitus with neuropathy Current visit: No Status: Chronic Category: Medical Code(s): E11.40 - Type 2 diabetes mellitus with diabetic neuropathy, unspecified (10) Chronic renal disease Current visit: Yes Status: Acute Category: Medical Code(s): N18.9 - Chronic kidney disease, unspecified - Assessment and plan all Dx Assessment and Plan for all problems:: Decrease isosorbide dinitrate to 30 mg a day. I will cautiously add 25 mg of spironolactone today. Cardiology is following her with me.
--- NOTE | 2019-12-02 09:09 | Progress Note ---
Subjective Date: 12/02/19 Time: 09:05 Principal diagnosis: back pain, CHF, CKD Interval history: 79 yo WF in bed in NAD. Appears to feel better today. Back pain has improved but not resolved (this is a chronic problem). BP during IVF was >100 mm Hg but when rate turned down, SBP<100 mm Hg. Pt seemed more fatigued and tired so Neosynephrine gtt was started with BP improved. Pt now relates low BP at both Cardiology and Nephrology offices in past. Discussed with Dr. Damon and will reduce isosorbide to 30 mg daily and discontinue Alfred gtt. Ambulate in room and monitor BP. Exam Vital signs and Labs for Last 24 Hours: Temp Pulse Resp BP Pulse Ox 97.5 F L 68 18 90/48 L 94 L 12/02/19 08:00 12/02/19 08:00 12/02/19 08:00 12/02/19 08:00 12/02/19 08:00 Laboratory Results - last 24 hr 12/01/19 14:02: Urine Color Yellow, Urine Appearance Clear, Urine pH 5.0, Ur Specific [place] 1.015, Urine Protein Negative, Urine Glucose (UA) Negative, Urine Ketones Trace, Urine Blood Negative, Urine Nitrate Negative, Urine Bilirubin Negative, Urine Urobilinogen 0.2, Ur Leukocyte Esterase Trace, Urine RBC None, Urine WBC 10-20, Ur Squamous Epith Cells Occasional, Amorphous Sedimen t 1+, Urine Bacteria None 12/01/19 20:21: POC Glucose 232 H 12/02/19 07:30: Sodium 136, Potassium 5.0, Chloride 104, Carbon Dioxide 22, Anion Gap 15.0, BUN 103 H*, Creatinine 2.70 H, Estimated Creat Clear 28, Estimated GFR 18 L*, Est GFR ( Amer) 21 L, Glucose 92, Calcium 8.6 D I & O for Last 24 hours: Intake & Output 11/29/19 11/30/19 12/01/19 12/02/19 11:59 11:59 11:59 11:59 Intake Total 211 / 211 2906 / 2906 Balance 211 / 211 2906 / 2906 Weight 227 lb 1 oz 235 lb 3 oz Microbiology Reports for the Last 24 Hours: Microbiology 12/01/19 14:02 Urine,Clean Catch Urine Culture - Preliminary - *Routine HEENT Exam Head: Present: normocephalic Eye: Present: EOMI, PERRL ENT: Present: mucous membranes moist - *Routine Respiratory Exam Present: CTA bilaterally, rales. Absent: accessory muscle use, rhonchi, wheezes - *Routine Cardiovascular Exam Present: RRR. Absent: murmur, gallop, rubs - *Routine Extremities Exam Present: edema. Absent: calf tenderness - *Routine Neurological Exam Present: alert, oriented X3, moving all extremities Progress Note: A&P (1) Coronary artery disease Status: Acute Current Visit: Yes (2) Back pain Status: Acute Current Visit: Yes (3) Type 2 diabetes mellitus Status: Acute Current Visit: Yes (4) Chest pain Status: Acute Current Visit: Yes (5) Upper back pain Status: Acute Current Visit: Yes (6) Hypertension Status: Acute Current Visit: Yes (7) Hyperlipidemia associated with type 2 diabetes mellitus Status: Acute Current Visit: Yes (8) Neck pain Status: Acute Current Visit: No (9) Diabetes mellitus with neuropathy Status: Chronic Current Visit: No (10) Chronic renal disease Status: Acute Current Visit: Yes Assessment and Plan for All Diagnoses:: 1. Back pain, improved 2. CHF, likely diastolic dysfunction with echo systolic LVEF of 55-60%. Low dose spironolactone being added. 3. CKD stage 4, still with elevated Cr/BUN despite 2 liters of IVF 4. DM type 2 5. History of mild CAD by cath, approximately 2014, managed by Dr. Goodrich 6. Nothing further to add. We will see as needed.
[2019-12-03 07:14] LABS: Basophils % 0.3 % (0.1-2.0); Hematocrit 36.5 % (37.0-47.0); Hemoglobin 12.1 g/dL (12.2-16.2); Lymphocytes # 0.6 K/mm3 (0.7-4.5); Lymphocytes % 6.4 % (10-50); Mean Corpuscular HGB Conc 33.2 g/dL (31.8-35.4); Mean Corpuscular Volume 99.4 fl (81-99); Mean Platelet Volume 8.9 fl (7.4-10.4); Monocytes # 0.5 K/mm3 (0.1-1.0); Monocytes % 5.8 % (1.7-9.3); Neutrophils # 7.9 K/mm3 (1.8-7.8); Neutrophils % 87.5 % (37.0-80.0); Platelet Count 130 K/mm3 (142-424); Red Blood Count 3.67 M/mm3 (4.20-5.40); Red Cell Distribution Width 15.7 % (11.5-17.5)
[2019-12-03 08:39] LABS: Anion Gap 12.6 mEq/L (5-15); Calcium 8.8 mg/dl (8.4-10.2)
[2019-12-03 10:25] LABS: Lymphocytes % 6 % (10-50); Monocytes % 6 % (2-9); Neutrophils % 88 % (42-76); Total Cells Counted 100
[2019-12-03 10:26] LABS: RBC Morphology Normal
[2019-12-04 05:55] LABS: Anion Gap 11.8 mEq/L (5-15)
[2019-12-04 05:57] LABS: Calcium 9.7 mg/dl (8.4-10.2)
--- NOTE | 2019-12-04 11:14 | Progress Note ---
Internal Medicine - PN: Subj *Date: 12/03/19 *Time: 09:00 Interval history: The patient was seen and examined yesterday. Apparently I failed to place a note after the visit. The night prior she had requested Lasix. She seems to be quite sensitive to and aware of fluid retention. Her complaints of fluid retention actually correlate with her weight very well. Exam Vital signs and Labs for Last 24 Hours: Temp Pulse Resp BP Pulse Ox 97.6 F 89 22 131/62 94 L 12/04/19 07:49 12/04/19 07:49 12/04/19 07:49 12/04/19 07:49 12/04/19 07:49 Laboratory Results - last 24 hr 12/03/19 05:55: Total Counted 100, Neutrophils % (Manual) 88 H, Lymphocytes % (Manual) 6 L, Monocytes % (Manual) 6, Platelet Estimate Slight decrease, RBC Morphology Normal 12/03/19 08:54: POC Glucose 156 H 12/03/19 11:18: POC Glucose 162 H 12/03/19 19:51: POC Glucose 61 L 12/03/19 20:24: POC Glucose 86 12/04/19 03:54: POC Glucose 103 12/04/19 05:25: Sodium 134 L, Potassium 3.8, Chloride 99, Carbon Dioxide 27 D, Anion Gap 11.8, BUN 94 H, Creatinine 1.80 H, Estimated Creat Clear 43, Estimated GFR 27 L, Est GFR ( Amer) 33 L D, Glucose 114 H D, Calcium 9.7 D 12/04/19 06:14: POC Glucose 105 12/04/19 08:26: POC Glucose 151 H I & O for Last 24 hours: Intake & Output 12/01/19 12/02/19 12/03/19 12/04/19 11:59 11:59 11:59 12:59 Intake Total 211 / 211 2906 / 2906 1200 / 1200 720 / 720 Output Total 1300 / 1300 865 / 865 Balance 211 / 211 2906 / 2906 -100 / -100 -145 / -145 Weight 227 lb 1 oz 235 lb 3 oz 245 lb 1 oz 238 lb 2 oz Microbiology Reports for the Last 24 Hours: Microbiology 12/01/19 14:02 Urine,Clean Catch Urine Culture - Final Escherichia coli 12/01/19 18:37 Blood Blood Culture - Preliminary NO GROWTH AFTER 48 HOURS 12/01/19 18:37 Blood Blood Culture - Preliminary NO GROWTH AFTER 48 HOURS - Constitutional no acute distress - *Routine Respiratory Exam Present: CTA bilaterally, rales (A few at the bases) - *Routine Cardiovascular Exam Present: RRR - *Routine Abdominal Exam Present: soft, obese. Absent: tenderness - *Routine Extremities Exam Present: edema (Elastic leggings in place.) Assessment and Plan (1) Coronary artery disease Current visit: Yes Status: Acute Category: Medical Code(s): I25.10 - Atherosclerotic heart disease of [place] coronary artery without angina pectoris (2) Back pain Current visit: Yes Status: Acute Category: Medical Code(s): M54.9 - Dorsalgia, unspecified (3) Type 2 diabetes mellitus Current visit: Yes Status: Acute Category: Medical Code(s): E11.9 - Type 2 diabetes mellitus without complications (4) Chest pain Current visit: Yes Status: Acute Category: Medical Code(s): R07.9 - Chest pain, unspecified (5) Upper back pain Current visit: Yes Status: Acute Category: Medical Code(s): M54.9 - Dorsalgia, unspecified (6) Hypertension Current visit: Yes Status: Acute Category: Medical Code(s): I10 - Essential (primary) hypertension (7) Hyperlipidemia associated with type 2 diabetes mellitus Current visit: Yes Status: Acute Category: Medical Code(s): E11.69 - Type 2 diabetes mellitus with other specified complication; E78.5 - Hyperlipidemia, unspecified (8) Neck pain Current visit: No Status: Acute Category: Medical Code(s): M54.2 - Cervicalgia (9) Diabetes mellitus with neuropathy Current visit: No Status: Chronic Category: Medical Code(s): E11.40 - Type 2 diabetes mellitus with diabetic neuropathy, unspecified (10) Chronic renal disease Current visit: Yes Status: Acute Category: Medical Code(s): N18.9 - Chronic kidney disease, unspecified - Assessment and plan all Dx Assessment and Plan for all problems:: See orders. Twice daily Lasix with additional IV Lasix as needed.
--- NOTE | 2019-12-04 11:19 | Progress Note ---
Internal Medicine - PN: Subj *Date: 12/04/19 *Time: 11:16 Interval history: The patient is stable this morning. She is anxious to go home and would like to do so tomorrow. I think this will be possible. As stated in my previous note, she seems quite sensitive to her fluid balance. Additional IV Lasix has been given when she has such complaints. Her complaints actually correlate with weight increase. This morning she weighs 238. She was up to 245 and was complaining of her edema. She still has her back pain. I have given her less gabapentin during her hospitalization and she takes at home. I will increase the gabapentin dose. Exam Vital signs and Labs for Last 24 Hours: Temp Pulse Resp BP Pulse Ox 97.6 F 89 22 131/62 94 L 12/04/19 07:49 12/04/19 07:49 12/04/19 07:49 12/04/19 07:49 12/04/19 07:49 Laboratory Results - last 24 hr 12/03/19 05:55: Total Counted 100, Neutrophils % (Manual) 88 H, Lymphocytes % (Manual) 6 L, Monocytes % (Manual) 6, Platelet Estimate Slight decrease, RBC Morphology Normal 12/03/19 08:54: POC Glucose 156 H 12/03/19 11:18: POC Glucose 162 H 12/03/19 19:51: POC Glucose 61 L 12/03/19 20:24: POC Glucose 86 12/04/19 03:54: POC Glucose 103 12/04/19 05:25: Sodium 134 L, Potassium 3.8, Chloride 99, Carbon Dioxide 27 D, Anion Gap 11.8, BUN 94 H, Creatinine 1.80 H, Estimated Creat Clear 43, Estimated GFR 27 L, Est GFR ( Amer) 33 L D, Glucose 114 H D, Calcium 9.7 D 12/04/19 06:14: POC Glucose 105 12/04/19 08:26: POC Glucose 151 H I & O for Last 24 hours: Intake & Output 12/01/19 12/02/19 12/03/19 12/04/19 11:59 11:59 11:59 12:59 Intake Total 211 / 211 2906 / 2906 1200 / 1200 720 / 720 Output Total 1300 / 1300 865 / 865 Balance 211 / 211 2906 / 2906 -100 / -100 -145 / -145 Weight 227 lb 1 oz 235 lb 3 oz 245 lb 1 oz 238 lb 2 oz Microbiology Reports for the Last 24 Hours: Microbiology 12/01/19 14:02 Urine,Clean Catch Urine Culture - Final Escherichia coli 12/01/19 18:37 Blood Blood Culture - Preliminary NO GROWTH AFTER 48 HOURS 12/01/19 18:37 Blood Blood Culture - Preliminary NO GROWTH AFTER 48 HOURS - Constitutional no acute distress - *Routine HEENT Exam Head: Present: normocephalic ENT: Present: mucous membranes dry (Her tongue appears actually a little dry.) - *Routine Respiratory Exam Present: CTA bilaterally - *Routine Cardiovascular Exam Present: RRR - *Routine Abdominal Exam Present: soft, obese. Absent: tenderness - *Routine Extremities Exam Present: edema (With elastic leggings in place) - *Routine Neurological Exam Present: alert, oriented X3 Assessment and Plan (1) Coronary artery disease Current visit: Yes Status: Acute Category: Medical Code(s): I25.10 - Atherosclerotic heart disease of [place] coronary artery without angina pectoris (2) Back pain Current visit: Yes Status: Acute Category: Medical Code(s): M54.9 - Dorsalgia, unspecified (3) Type 2 diabetes mellitus Current visit: Yes Status: Acute Category: Medical Code(s): E11.9 - Type 2 diabetes mellitus without complications (4) Chest pain Current visit: Yes Status: Acute Category: Medical Code(s): R07.9 - Chest pain, unspecified (5) Upper back pain Current visit: Yes Status: Acute Category: Medical Code(s): M54.9 - Dorsalgia, unspecified (6) Hypertension Current visit: Yes Status: Acute Category: Medical Code(s): I10 - [place] l (primary) hypertension (7) Hyperlipidemia associated with type 2 diabetes mellitus Current visit: Yes Status: Acute Category: Medical Code(s): E11.69 - Type 2 diabetes mellitus with other specified complication; E78.5 - Hyperlipidemia, unspecified (8) Neck pain Current visit: No Status: Acute Category: Medical Code(s): M54.2 - Cervicalgia (9) Diabetes mellitus with neuropathy Current visit: No Status: Chronic Category: Medical Code(s): E11.40 - Type 2 diabetes mellitus with diabetic neuropathy, unspecified (10) Chronic renal disease Current visit: Yes Status: Acute Category: Medical Code(s): N18.9 - Chronic kidney disease, unspecified - Assessment and plan all Dx Assessment and Plan for all problems:: Increase gabapentin. Plan discharge tomorrow.
--- NOTE | 2019-12-05 09:39 | Progress Note ---
Internal Medicine - PN: Subj *Date: 12/05/19 *Time: 09:36 Interval history: The patient is anxious for discharge. She is feeling relatively well. I got to see the ulcer on the right buttock this morning. I informed her of the 10- 20,000 E. coli culture from her urine and the treatment with Bactrim. I do not plan to send her home on Bactrim. She was told to carefully review her medication list since her been changes. She is to follow-up with her primary care provider to adjust medications accordingly. Exam Vital signs and Labs for Last 24 Hours: Temp Pulse Resp BP Pulse Ox 97.7 F 99 H 20 144/64 H 92 L 12/05/19 08:00 12/05/19 08:00 12/05/19 08:00 12/05/19 08:00 12/05/19 08:00 Laboratory Results - last 24 hr 12/04/19 20:30: POC Glucose 165 H 12/05/19 05:53: POC Glucose 87 12/05/19 08:38: POC Glucose 186 H I & O for Last 24 hours: Intake & Output 12/02/19 12/03/19 12/04/19 12/05/19 10:59 10:59 11:59 11:59 Intake Total 750 / 750 Output Total 1200 / 1200 Balance -450 / -450 Weight 234 lb 3 oz Microbiology Reports for the Last 24 Hours: Microbiology 12/01/19 14:02 Urine,Clean Catch Urine Culture - Final Escherichia coli - Constitutional no acute distress - *Routine HEENT Exam Head: Present: normocephalic Eye: Present: PERRL - *Routine Respiratory Exam Present: CTA bilaterally, rales (Fibrotic bibasilar rales) - *Routine Cardiovascular Exam Present: RRR - *Routine Abdominal Exam Present: soft. Absent: tenderness - *Routine Extremities Exam Present: edema (With stasis changes. Blister on the right lower extremity opened with sterile blade.) Assessment and Plan (1) Coronary artery disease Current visit: Yes Status: Acute Category: Medical Code(s): I25.10 - Atherosclerotic heart disease of [place] coronary artery without angina pectoris (2) Back pain Current visit: Yes Status: Acute Category: Medical Code(s): M54.9 - Dorsalgia, unspecified (3) Type 2 diabetes mellitus Current visit: Yes Status: Acute Category: Medical Code(s): E11.9 - Type 2 diabetes mellitus without complications (4) Chest pain Current visit: Yes Status: Acute Category: Medical Code(s): R07.9 - Chest pain, unspecified (5) Upper back pain Current visit: Yes Status: Acute Category: Medical Code(s): M54.9 - Dorsalgia, unspecified (6) Hypertension Current visit: Yes Status: Acute Category: Medical Code(s): I10 - Essential (primary) hypertension (7) Hyperlipidemia associated with type 2 diabetes mellitus Current visit: Yes Status: Acute Category: Medical Code(s): E11.69 - Type 2 diabetes mellitus with other specified complication; E78.5 - Hyperlipidemia, unspecified (8) Neck pain Current visit: No Status: Acute Category: Medical Code(s): M54.2 - Cervicalgia (9) Diabetes mellitus with neuropathy Current visit: No Status: Chronic Category: Medical Code(s): E11.40 - Type 2 diabetes mellitus with diabetic neuropathy, unspecified (10) Chronic renal disease Current visit: Yes Status: Acute Category: Medical Code(s): N18.9 - Chronic kidney disease, unspecified - Assessment and plan all Dx Assessment and Plan for all problems:: See med list. Discharge. Follow-up with primary care provider. I am available if she has questions.
--- NOTE | 2019-12-06 09:59 | Discharge Summary ---
General - General Admission date:: 12/01/19 Discharge date: 12/05/19 HPI HPI: This 79-year-old white female patient of Dr. Germain presented in the emergency room with complaints of back pain, and chest pain with radiation up into the neck. She has a history of coronary artery disease and is followed by Dr. Buzz Ramos in [place]. She has had 3 heart catheterizations and states that she has 3 blockages in her coronary arteries. She has never had stents placed. She has a strong family history of coronary artery disease. Her parents had coronary artery disease and her siblings as well. The patient is diabetic and has chronic kidney disease as well. Apparently she was quite ill when she was admitted. Her blood pressure was running very low, with systolic below 80. Her heart rate was 60. She has received supplemental IV fluids. After being seen by cardiology, her IV fluid rate was turned up to 250 cc an hour. At the time that I am seeing her this morning, her color is good and she seems improved. Her blood pressure is 103/49. Her troponins have been negative. Hospital Course Hospital Course: The patient's initial chest x-ray showed nothing acute. Her troponins all returned negative. Cardiology did see the patient in consult and they ordered an echocardiogram as well as a CT scan to rule out the possibility of aortic dissection. The patient's hypotension improved dramatically with IV fluids. Her chest CT showed no evidence of aortic aneurysm and did show mild CHF. Her systolic pressure ran consistently below 100, therefore she was moved to the unit and was started on phenylephrine IV. When the phenylephrine was turned off, her blood pressure would drop below 100. She did have an echo and her EF was read as 55 to 60%. Her isosorbide dinitrate was decreased to 30 mg a day and 25 mg of spironolactone was cautiously added. Her back pain did improve but did not resolve. The patient did request some Lasix due to fluid retention and her complaints of fluid retention actually correlated with her weight very well. She was started on twice daily Lasix. Her urine culture was positive for E. coli but only at a 10,000-20,000 level. She was started on daily Bactrim. She began feeling better and was anxious to go home. She had gone down from a weight of 245 to 238 with the Lasix. She continued to have back pain and had been on a lower dose of gabapentin during her hospitalization than she took at home. The gabapentin dose was increased. Her blood culture showed no growth. She was stable to be discharged home and will follow up with her primary care provider. Before discharge, there were a few right lower leg blistered areas that were opened with a #15 blade and drained. Sterile dressings were placed and she was comfortable and tolerated the procedure well. Objective Vital signs: Temp Pulse Resp BP Pulse Ox 97.9 F 77 20 123/61 92 L 12/05/19 12:12/05/19 12:12/05/19 12:12/05/19 12:12/05/19 12:00 Narrative: - Constitutional no acute distress, somnolent - *Routine HEENT Exam Eye: Present: EOMI, PERRL, normal accommodation ENT: Present: mucous membranes moist. Absent: dentition normal (Edentulous) - *Routine Neck Exam Absent: JVD, carotid bruit, lymphadenopathy - Routine Chest/Breast/Axilla Exam Chest wall: Present: tenderness (Tender near the scapula bilaterally.) - *Routine Respiratory Exam Present: CTA bilaterally - *Routine Cardiovascular Exam Present: RRR (No ectopics). Absent: murmur - *Routine Abdominal Exam Present: soft, obese. Absent: tenderness, distended - *Routine Extremities Exam Present: edema (Evidence of chronic edema, varicosities, stasis changes.) - *Routine Skin Exam Present: intact - *Routine Neurological Exam Present: oriented X3 (Seems a bit drowsy but answers questions appropriately.) Results Labs on day of discharge: Preliminary micro results at discharge 12/01/19 18:37 Blood Culture - Preliminary Blood NO GROWTH AFTER 48 HOURS 12/01/19 18:37 Blood Culture - Preliminary Blood NO GROWTH AFTER 48 HOURS DS: Diagnosis - Discharge Diagnosis (1) Coronary artery disease Status: Acute (2) Back pain Status: Acute (3) Type 2 diabetes mellitus Status: Acute (4) Chest pain Status: Acute (5) Upper back pain Status: Acute (6) Hypertension Status: Acute (7) Hyperlipidemia associated with type 2 diabetes mellitus Status: Acute (8) Neck pain Status: Acute (9) Diabetes mellitus with neuropathy Status: Chronic (10) Chronic renal disease Status: Acute Discharge Plan - Patient Discharge Instructions ACTIVITY: Limited activity DIET: advance to your usual diet Patient Instructions: Low Back Pain, Angina, DI for Angina, DI for Enteritis, DI for Acute Kidney Injury - Follow up Plan Unknown provider or service follow up:: 12/05/19 09:39 Follow-up with your primary care provider. Please review medications soon. Adjustments have been made. Disposition: Home, Self-Senior Care Medications: Home Medications Medication Instructions Recorded Confirmed Type allopurinol 100 mg tablet 100 mg PO BID 90 Days #180 tab 02/25/19 12/01/19 History clonazepam 0.5 mg tablet 0.5 mg PO HS 30 Days #30 tab 02/25/19 12/01/19 History gabapentin 600 mg tablet 600 mg PO TID 90 Days tab 02/25/19 12/01/19 History linagliptin 5 mg tablet 5 mg PO DAILY 90 Days tab 02/25/19 12/01/19 History magnesium oxide 400 mg PO DAILY 02/25/19 12/01/19 History pravastatin 40 mg tablet 40 mg PO HS 90 Days tab 02/25/19 12/01/19 History torsemide 20 mg tablet 40 mg PO BID 90 Days #360 tab 02/25/19 12/01/19 History Glucosamine Sulfate Dipot Chlr 1 tab PO DAILY 04/13/19 12/01/19 History [Glucosamine] Spironolactone [Spironolactone 50 mg PO DAILY 04/14/19 12/01/19 History 25mg Tablet] Fluoxetine HCl 40 mg PO DAILY 12/01/19 12/01/19 History Insulin Aspart Prot/Insuln Asp 60 unit SQ DAILY 12/01/19 12/01/19 History [Insulin Aspart Prot-Insuln Asp] Insulin Aspart Prot/Insuln Asp 70 units SQ HS 12/01/19 12/01/19 History [Insulin Aspart Prot-Insuln Asp] Multivit-Minerals/Folic/Ginkgo 1 each PO DAILY 12/01/19 12/01/19 History [One Daily Women's 50+ Tablet] Potassium Chloride [Klor-con 20 40 meq PO DAILY 12/01/19 12/01/19 History mEq tablet] Ropinirole HCl [Requip 1mg Tablet] 2 mg PO HS 12/01/19 12/01/19 History Isosorbide Mononitrate [Imdur 30mg 30 mg PO DAILY #30 tab 12/05/19 Rx ER tablet] Prescriptions/Medication Reconciliation: New Isosorbide Mononitrate [Imdur 30mg ER tablet] 30 mg PO DAILY #30 tab Continued allopurinol 100 mg tablet 100 mg PO BID 90 Days #180 tab clonazepam 0.5 mg tablet 0.5 mg PO HS 30 Days #30 tab gabapentin 600 mg tablet 600 mg PO TID 90 Days tab linagliptin 5 mg tablet 5 mg PO DAILY 90 Days tab pravastatin 40 mg tablet 40 mg PO HS 90 Days tab torsemide 20 mg tablet 40 mg PO BID 90 Days #360 tab magnesium oxide 400 mg PO DAILY Glucosamine Sulfate Dipot Chlr [Glucosamine] 1 tab PO DAILY Spironolactone [Spironolactone 25mg Tablet] 50 mg PO DAILY Ropinirole HCl [Requip 1mg Tablet] 2 mg PO HS Insulin Aspart Prot/Insuln Asp [Insulin Aspart Prot-Insuln Asp] 60 unit SQ DAILY Insulin Aspart Prot/Insuln Asp [Insulin Aspart Prot-Insuln Asp] 70 units SQ HS Multivit-Minerals/Folic/Ginkgo [One Daily Women's 50+ Tablet] 1 each PO DAILY Fluoxetine HCl 40 mg PO DAILY Potassium Chloride [Klor-con 20 mEq tablet] 40 meq PO DAILY Discontinued bisoprolol fumarate 5 mg tablet 2.5 mg PO DAILY 90 Days #45 tab gabapentin 300 mg capsule 300 mg PO HS 90 Days cap hydrocodone 10 mg-acetaminophen 325 mg tablet 1 tab PO Q6HP PRN 30 Days #120 tab PRN Reason: PAIN isosorbide mononitrate 60 mg tablet,extended release 24 hr 60 mg PO DAILY 90 Days #90 tab metolazone 2.5 mg tablet 5 mg PO TID 90 Days #540 tab potassium chloride 20 mEq tablet,extended release(part/cryst) 60 meq PO BID 90 Days tab - Problem Reconciliation Problems Reviewed?: Yes
== END 2019-12-05 13:00 | disposition home or self-care (01) ==
LOC: 2ND 22:42 → ER 22:42 → 2ND 12-01 01:43 → ICU 12-01 17:26 → 2ND 12-02 13:41
PROVIDERS: ADMIT Family Medicine; ATTEND Family Medicine
CPT/HCPCS: 36415; 71010; 71045; 71250; 80048; 81001; 82962; 83880; 84484; 85007; 85025; 87040; 87086; 87088; 87186; 93005; 93306; 99284; G0378

== ENCOUNTER → 2020-01-24 10:39 | Outpatient (CLI) | payer MEDICARE, SELFPAY ==
[2020-01-24 10:42] LABS: Microscopic, Urine URINE MICROSCOPIC (MICROSCOPIC)
[2020-01-24 14:16] LABS: Chloride 95 mmol/L (98-107); Potassium 4.8 mmoL/L (3.5-5.1); Sodium 139 mmol/L (136-145)
[2020-01-24 14:17] LABS: Albumin Level 4.2 g/dl (3.5-5.0)
[2020-01-24 14:19] LABS: Anion Gap 20.8 mEq/L (5-15); Calcium 9.9 mg/dl (8.4-10.2); Carbon Dioxide 28 mmol/L (22.0-30.0); Estimated Glomerular Filt Rate 24 ml/min (>60); GFR (African American) 29 ML/MIN (>60); Glucose 145 mg/dl (74-100); Uric Acid 4.2 mg/dl (2.5-6.2)
[2020-01-24 14:20] LABS: Basophils # 0.1 K/mm3 (0-0.2); Basophils % 1.4 % (0.1-2.0); Eosinophils % 0.1 % (0.1-12.0); Hemoglobin 13.3 g/dL (12.2-16.2); Lymphocytes # 1.1 K/mm3 (0.7-4.5); Lymphocytes % 25.3 % (10-50); Mean Corpuscular HGB Conc 33.1 g/dL (31.8-35.4); Mean Corpuscular Hemoglobin 32.7 pg (27.0-31.2); Mean Corpuscular Volume 98.7 fl (81-99); Monocytes # 0.4 K/mm3 (0.1-1.0); Monocytes % 8.4 % (1.7-9.3); Neutrophils # 2.8 K/mm3 (1.8-7.8); Neutrophils % 64.7 % (37.0-80.0); Platelet Count 159 K/mm3 (142-424); Red Blood Count 4.06 M/mm3 (4.20-5.40); Red Cell Distribution Width 15.6 % (11.5-17.5); White Blood Count 4.3 K/mm3 (4.8-10.8)
[2020-01-24 14:26] LABS: Blood Urea Nitrogen 110 mg/dl (7-17)
[2020-01-24 14:38] LABS: Appearance,Urine CLEAR (Clear); Bilirubin,Urine Negative (Negative); Blood, Urine Negative (Negative); Color,Urine YELLOW (Yellow); Glucose,Urine (UA) Negative (Negative); Ketones,Urine Negative (Negative); Leukocyte Esterase,Urine TRACE (Negative); Nitrate,Urine Negative (Negative); Protein,Urine Negative (Negative); Specific Gravity, Urine 1.015 (1.005-1.030); Urobilinogen,Urine 0.2 EU/dl (0.2)
[2020-01-24 14:52] LABS: Creatinine,Urine Random 36 mg/dL (Not Estab.)
[2020-01-24 15:17] LABS: Amorphous Sediment,Urine Trace /lpf; RBC,Urine Occasional #/hpf (0-3); WBC,Urine Occasional #/hpf (0-3)
== END ==
PROVIDERS: Visit Provider Hospitalist
DX: N18.4 Chronic kidney disease, stage 4 (severe) (principal); M10.9 Gout, unspecified
CPT/HCPCS: 36415; 80069; 81001; 82570; 84155; 84550; 85025

== ENCOUNTER → 2020-02-14 10:33 | Outpatient (POV) | payer MEDICARE, SELFPAY | PROVIDERS: PCP Internal Medicine; Visit Provider Physician Assistant | DX: Z00.00 Encounter for general adult medical examination without abnormal findings (principal) ==

== ENCOUNTER → 2020-06-18 13:30 | Outpatient (CLI) | payer MEDICARE, SELFPAY ==
--- NOTE | 2020-06-18 13:31 | CT_ITS ---
PROCEDURE: CT CERVICAL SPINE WO CON CLINICAL INDICATION: weakness WEAKNESS TREMBLING BILATERAL HANDS,NEUROPATHY,,NECK PAIN COMPARISON: No exams were available for comparison TECHNIQUE: Axial images obtained with sagittal and coronal reformats. All CT scans at the facility use one or more dose reduction, viz: automated exposure control, ma/kV adjustment per patient size (including targeted exams where dose is matched to indication, i.e. head), or iterative reconstruction technique. Axial spiral CT scanning performed of the cervical spine beginning at the base of the skull and continuing to the upper T-spine. 3-D multiplanar reconstruction with 3-D manipulation of volumetric data set in image rendering was completed by the radiologist and/or technologist with the supervision of the radiologist on independent workstation. FINDINGS: There is multilevel cervical spondylosis. C1-C2: There is mild calcification of the transverse ligament region. The patient's head is tilted toward the right. C2-C3: Degenerative disc disease with bulging disc and small central disc protrusion. C3-C4: 3 mm anterolisthesis of C3 with degenerative disc disease. There is mild calcification which is somewhat coarse in nature posterior to the thecal sac at this area. C4-C5: Degenerative disc disease with 3 mm anterolisthesis of C4. There is mild bilateral foraminal narrowing. C5-C6: Severe degenerative disc disease. There is bilateral foraminal narrowing from facet and uncovertebral hypertrophy. C6-C7: Severe degenerative disc disease. There is mild loss of height of C6 which appears chronic. There are anterior osteophytes at this level with mild reversal of the lordosis at C5-C6 and C6-C7 with mild bilateral foraminal narrowing. C7-T1: Degenerative disc disease with 3 mm anterolisthesis of C7. There is some endplate irregularity. No acute fracture or dislocation. No lytic or blastic change. There is mosaic attenuation of the upper lung irizarry which is nonspecific. There is some increased soft tissue density in the left aryepiglottic fold and piriform sinus region. Direct visualization suggested. There is mild thickening of the upper esophagus which is nonspecific. IMPRESSION: 1. Multilevel cervical spondylosis as described above. No acute fracture. No bony canal stenosis. Please see above for detailed description at each level. 2. Mosaic attenuation of the upper lung irizarry nonspecific and could be seen with infection, inflammation, small airway disease vascular disease. 3. Slight increased soft tissue density in the left supraglottic region at the area epiglottic fold. This could be due to nondistention and or mucous. Cannot exclude a mucosal lesion and follow-up is suggested. Dictated by: Andrae Khan MD 06/19/2020 13:19 Andrae Khan MD in [place] 06/19/2020 13:19
== END ==
PROVIDERS: PCP Internal Medicine; Visit Provider Specialist
DX: G56.21 Lesion of ulnar nerve, right upper limb (principal); M54.2 Cervicalgia; R29.898 Other symptoms and signs involving the musculoskeletal system
CPT/HCPCS: 72125

== ENCOUNTER → 2020-06-20 16:52 | Outpatient (CLI) | payer MEDICARE, SELFPAY ==
--- NOTE | 2020-06-20 16:58 | XR_ITS ---
PROCEDURE: XR CERVICAL SPINE W FLEX/EXT CLINICAL INDICATION: weakness Weakness COMPARISON: CT CT CERVICAL SPINE WO CON from 06/18/2020 FINDINGS: There is 4 mm anterolisthesis of C3 on C4 with degenerative disc disease at C2-C3 C3-C4 C4-C5 C5-C6 and C6-C7. No acute fracture or dislocation. Foraminal narrowing is present on the right at C3-C4 and on the left at C3-C4. Facet arthritic changes are present from C3-C7. No acute fracture is apparent. Flexion and extension views are obtained showing no increase in subluxation at C3-C4. no abnormal translation apparent. IMPRESSION: Multilevel cervical spondylosis with 4 mm anterolisthesis of C3 on C4 which does not increase with flexion or extension Dictated by: Andrae Khan MD 06/20/2020 17:45 Andrae Khan MD in [place] 06/20/2020 17:45
--- NOTE | 2020-06-20 16:58 | XR_ITS ---
PROCEDURE: XR CHEST 2V CLINICAL HISTORY: Abnormal finding on recent CT C-Spine Weakness COMPARISON: CR CXR CHEST(2 VIEWS-NOT PORTABLE) from 09/13/2014 DX CXR CHEST(2 VIEWS-NOT PORTABLE) from 08/31/2017 CR XR CHEST PORTABLE from 11/30/[address] CHEST WO CON from 12/01/2019 FINDINGS: Borderline cardiomegaly without failure. There is consolidation in the right perihilar region consistent with pneumonia. A mass could be obscured therefore follow-up is recommended. There postsurgical changes of the thoracolumbar junction. Left lung is clear. There is mild wedging of T7 age indeterminate. IMPRESSION: Right perihilar pneumonia. Suggest following till clear as a mass could be obscured Dictated by: Andrae Khan MD 06/20/2020 17:52 Andrae Khan MD in [place] 06/20/2020 17:52
[2020-06-20 22:09] LABS: Folate > 20.00 ng/mL; Vitamin B12 > 1000 pg/mL (239-931)
== END ==
PROVIDERS: PCP Internal Medicine; Visit Provider Specialist
DX: R25.1 Tremor, unspecified; R29.898 Other symptoms and signs involving the musculoskeletal system
CPT/HCPCS: 36415; 71046; 72052; 82607; 82746

== ENCOUNTER → 2020-07-26 12:40 | Outpatient (CLI) | payer MEDICARE, SELFPAY ==
[2020-07-26 12:45] LABS: Microscopic, Urine URINE MICROSCOPIC (MICROSCOPIC)
[2020-07-26 13:52] LABS: Appearance,Urine CLEAR (Clear); Bilirubin,Urine Negative (Negative); Blood, Urine Negative (Negative); Color,Urine YELLOW (Yellow); Glucose,Urine (UA) Negative (Negative); Ketones,Urine Negative (Negative); Leukocyte Esterase,Urine Negative (Negative); Nitrate,Urine Negative (Negative); Protein,Urine Negative (Negative); Urobilinogen,Urine 0.2 EU/dl (0.2)
[2020-07-26 14:20] LABS: Basophils % 0.4 % (0.1-2.0); Eosinophils % 0.3 % (0.1-12.0); Hematocrit 31.8 % (37.0-47.0); Hemoglobin 10.1 g/dL (12.2-16.2); Lymphocytes # 0.7 K/mm3 (0.7-4.5); Mean Corpuscular HGB Conc 31.8 g/dL (31.8-35.4); Mean Corpuscular Hemoglobin 33.3 pg (27.0-31.2); Mean Corpuscular Volume 104.9 fl (81-99); Mean Platelet Volume 10.6 fl (7.4-10.4); Monocytes # 0.3 K/mm3 (0.1-1.0); Monocytes % 6.2 % (1.7-9.3); Neutrophils # 3.4 K/mm3 (1.8-7.8); Neutrophils % 77.2 % (37.0-80.0); Platelet Count 86 K/mm3 (142-424); Red Blood Count 3.03 M/mm3 (4.20-5.40); Red Cell Distribution Width 16.6 % (11.5-17.5); White Blood Count 4.5 K/mm3 (4.8-10.8)
[2020-07-26 14:49] LABS: Albumin Level 3.8 g/dl (3.5-5.0); Anion Gap 13.7 mEq/L (5-15); Blood Urea Nitrogen 49 mg/dl (7-17); Calcium 9.6 mg/dl (8.4-10.2); Carbon Dioxide 28 mmol/L (22.0-30.0); Chloride 98 mmol/L (98-107); Estimated Glomerular Filt Rate 31 ml/min (>60); GFR (African American) 37 ML/MIN (>60); Glucose 142 mg/dl (74-100); Phosphorous 4.7 mg/dl (2.5-4.5); Potassium 4.7 mmoL/L (3.5-5.1); Sodium 135 mmol/L (136-145)
[2020-07-26 15:00] LABS: Intact Parathyroid Hormone 61.4 pg/mL (7.5-53.5)
[2020-07-26 15:06] LABS: 25-OH Vitamin D, Total 46.3 ng/mL (30-100)
== END ==
PROVIDERS: Visit Provider Internal Medicine
DX: R53.83 Other fatigue (principal)
CPT/HCPCS: 80069; 81001; 82306; 83970; 85025

== ENCOUNTER 2020-07-29 08:34 | Inpatient (IN) | payer MEDICARE, OTHER, SELFPAY ==
[2020-07-29] VITALS (13 sets, daily range): BP systolic 102–136; BP diastolic 52–85; PULSE 58–87; RESP 13–19; TEMP 32.2–36.8; O2SAT 94–100; BMI 34.3; BMI 30.9
--- NOTE | 2020-07-29 08:39 | XR_ITS ---
PROCEDURE: XR CHEST PORTABLE CLINICAL HISTORY: shortness of breath COMPARISON: DX CXR CHEST(2 VIEWS-NOT PORTABLE) from 08/31/2017 CR XR CHEST PORTABLE from 11/30/[address] CHEST WO CON from 12/01/2019 CR XR CHEST 2V from 06/20/2020 FINDINGS: This is a somewhat poor inspiratory effort. Cardiac size is normal pulmonary congestion. There is minimal opacities remaining in the right perihilar region likely representing residual of the right perihilar pneumonic infiltrate seen on the previous chest film 06/20/2020 the patient's chin is flexed over the right apex of the lung this is not adequately visualized. The remainder of the right lung and left lung irizarry are clear. Orthopedic hardware seen at the thoracolumbar junction at the lower edge of the field of view. IMPRESSION: Minimal scarring versus residual infiltrate right perihilar region otherwise essentially clear lung irizarry considering the poor inspiration Dictated by: Dr. Jacinto Elder MD 07/29/2020 09:58 Dr. Jacinto Elder MD in [place] 07/29/2020 09:58
--- NOTE | 2020-07-29 08:40 | ECG_ITS ---
APPROVED REPORT Exam: Resting ECG HR:66 bpm ECG Measurements Heart Rate 66 AXES MA 292 P 77 QRSd 162 QRS 62 QT 484 T -5 QTc 507 Conclusion Sinus rhythm with 1st degree AV block Right bundle branch block Abnormal ECG Electronically signed by : Surjit Yang, 07/31/2020 14:48:49
--- NOTE | 2020-07-29 08:42 | [facility].EDGENADL ---
ED Disposition Clinical Impression: Physical deconditioning, Weakness Disposition: Admitted As Inpatient Condition on Discharge: Fair - Critical Care Critical Care Time: No Attestation: On 07/29/20, the high probability of a clinically significant, sudden or life threatening deterioration of the following system(s) required my full and direct attention, intervention and personal management. The time I documented below is in addition to time spent performing reported procedures but includes the following listed in this critical care notation. Medical Decision Making - Gilles Inquiry Pt receiving controlled substance: No Vital Signs: 07/29/20 08:36 07/29/20 09:00 07/29/20 09:31 Pulse Rate [Right Brachial] 69 67 71 Respiratory Rate 15 Blood Pressure [Right Arm] 131/68 121/66 113/57 L Blood Pressure Mean [Right Arm] 89 84 75 Blood Pressure Source [Right Arm] Automatic Cuff Automatic Cuff Automatic Cuff Blood Pressure Position [Right Arm] Sitting Sitting Sitting 02 Sat by Pulse Oximetry 97 96 99 Oxygen Delivery Method Room Air Room Air Room Air - Lab Data Lab Results 07/29/20 08:40: VBG pH 7.33, VBG pCO2 54.1 H, VBG pO2 87.0 H, VBG HCO3 27.9, VBG Total CO2 29.6 H, VBG O2 Saturation 95.9 H, VBG Base Excess 2.0 07/29/20 08:41: WBC 6.2 D, RBC 3.07 L, Hgb 10.1 L, Hct 32.2 L, MCV 104.9 H, MCH 32.9 H, MCHC 31.3 L, RDW 16.9, Plt Count 68 L, MPV 10.6 H, Neut % (Auto) 83.0 H, Lymph % (Auto) 11.3, [place] % (Auto) 5.0, Eos % (Auto) 0.2, Baso % (Auto) 0.4, Neut # (Auto) 5.2, Lymph # (Auto) 0.7, [place] # (Auto) 0.3, Eos # (Auto) 0.0, Baso # (Auto) 0.0 07/29/20 08:41: Sodium 135 L, Potassium 4.7, Chloride 99, Carbon Dioxide 31 H, Anion Gap 9.7, BUN 47 H, Creatinine 1.40 H, Estimated Creat Clear 45, Estimated GFR 36 L, Est GFR ( Amer) 44 L, Glucose 92, Calcium 9.8, Troponin I < 0.01, NT-Pro-B Natriuret Pep 1110 H Result diagrams: 07/29/20 08:41 07/29/20 08:41 Orders (Tests/Meds): ORDERS Category Date Time Status CT cervical spine wo con Stat Cat Scan 07/29/20 09:[address] head/brain wo con Stat Cat Scan 07/29/20 09:00 Taken CXR --portable [XR chest portable] Stat Exams 07/29/20 08:39 Taken Covid-19 IgG/IgM ([facility]) Routine Lab 07/29/20 08:41 Received Troponin I Q3H Lab 07/29/20 11:45 Ordered Troponin I Q3H Lab 07/29/20 14:45 Ordered ECG Request by /Arlene Stat Y 07/29/20 08:40 Ordered Medical Decision Narrative: The patient is an 80 year old female with a history of DM, CKD, COPD who presents with shortness of breath and generalized weakness with inability to complete ADLs at home. Patient presents drowsy but arousable, does not answer questions. History is obtained from daughter - patient progressively weaker at home to the point she is unable to transfer to commode, eat, etc. CT head and C-spine were obtained due to recent fall and negative per my own read. Labs were unremarkable and don't show etiology for weakness. Discussed case with Dr. Diop who will admit for further evaluation and possible placement. Discussed plan with patient's daughter who is in agreement. General Adult HPI - General Chief complaint: Shortness of Breath/Dyspnea Stated complaint: SOA Time Seen by Provider: 07/29/20 08:36 Mode of Arrival: EMS Limitations: No Limitations Description of Symptoms (Recalled from ER Triage Doc. by RN): Patient brought in by [facility] with c/o SOA. EMS reports this has been an on going occcurance that they were just called to her residence 2 days ago with same complaint. - History of Present Illness HPI narrative: Patient is an 80 year old female who presents with shortness of breath. History is limited as patient is awake but drowsy. Per EMS patient has been in and out of the hospital for similar complaints and was told by OSH there was nothing more they could do . En route glucose was 116. She was 96% on room air but was placed on 2L NC for comfort. No other history is able to be obtained.
[2020-07-29 08:53] LABS: Basophils % 0.4 % (0.1-2.0); Eosinophils % 0.2 % (0.1-12.0); Hematocrit 32.2 % (37.0-47.0); Hemoglobin 10.1 g/dL (12.2-16.2); Lymphocytes # 0.7 K/mm3 (0.7-4.5); Lymphocytes % 11.3 % (10-50); Mean Corpuscular HGB Conc 31.3 g/dL (31.8-35.4); Mean Corpuscular Hemoglobin 32.9 pg (27.0-31.2); Mean Corpuscular Volume 104.9 fl (81-99); Mean Platelet Volume 10.6 fl (7.4-10.4); Monocytes # 0.3 K/mm3 (0.1-1.0); Neutrophils # 5.2 K/mm3 (1.8-7.8); Platelet Count 68 K/mm3 (142-424); Red Blood Count 3.07 M/mm3 (4.20-5.40); Red Cell Distribution Width 16.9 % (11.5-17.5); White Blood Count 6.2 K/mm3 (4.8-10.8)
[2020-07-29 08:54] LABS: Chloride 99 mmol/L (98-107); Potassium 4.7 mmoL/L (3.5-5.1); Sodium 135 mmol/L (136-145)
[2020-07-29 08:57] LABS: Anion Gap 9.7 mEq/L (5-15); Blood Urea Nitrogen 47 mg/dl (7-17); Calcium 9.8 mg/dl (8.4-10.2); Carbon Dioxide 31 mmol/L (22.0-30.0); Creatinine Clearance Estimated 45 mL/min (50-200); Estimated Glomerular Filt Rate 36 ml/min (>60); GFR (African American) 44 ML/MIN (>60); Glucose 92 mg/dl (74-100)
--- NOTE | 2020-07-29 08:59 | PC.NURSE ---
rad at bedside.
--- NOTE | 2020-07-29 09:00 | CT_ITS ---
PROCEDURE: CT HEAD/BRAIN WO CON CLINICAL INDICATION: fall, altered mental status COMPARISON: No exams were available for comparison TECHNIQUE: Axial images obtained. All CT scans at the facility use one or more dose reduction, viz: automated exposure control, ma/kV adjustment per patient size (including targeted exams where dose is matched to indication, i.e. head), or iterative reconstruction technique. FINDINGS: No midline shift, mass effect, intracranial hemorrhage, hydrocephalus, or extra-axial fluid collection is evident. Images are off the true axial plane making evaluation somewhat difficult. The sylvian fissures and cortical sulci are prominent. There are mild periventricular hypodensities consistent with chronic ischemic white matter changes. The calvarium has an unremarkable appearance. No mastoid effusion. No sinus air-fluid level ,there is minimal mucoperiosteal thickening floor of left maxillary sinus. IMPRESSION: Findings of age-appropriate cortical atrophy with mild chronic periventricular ischemic white matter changes, no definite acute intracranial pathology noted Dictated by: Dr. Jacinto Elder MD 07/29/2020 09:46 Dr. Jacinto Elder MD in [place] 07/29/2020 09:46
--- NOTE | 2020-07-29 09:00 | CT_ITS ---
PROCEDURE: CT CERVICAL SPINE WO CON CLINICAL INDICATION: fall, altered mental status COMPARISON: CT CT CERVICAL SPINE WO CON from 06/18/2020 TECHNIQUE: Axial images obtained with sagittal and coronal reformats. All CT scans at the facility use one or more dose reduction, viz: automated exposure control, ma/kV adjustment per patient size (including targeted exams where dose is matched to indication, i.e. head), or iterative reconstruction technique. Axial spiral CT scanning performed of the cervical spine beginning at the base of the skull and continuing to the upper T-spine. 3-D multiplanar reconstruction with 3-D manipulation of volumetric data set in image rendering was completed by the radiologist and/or technologist with the supervision of the radiologist on independent workstation. FINDINGS: No fracture nor subluxation is evident. Normal prevertebral soft tissues. There multilevel degenerate changes with disc space narrowing most prominent at the C5-6 and and C6-7 and C7-T1 levels. There is anterior and posterior osteophytic spurring at these levels. There is minor stable chronic anterolisthesis of C3 on C4. The spinal canal is normal in size throughout. There is tilting of the upper cervical spine to the right. There is mild neural foraminal narrowing bilaterally at the C4-5 and C5-6 levels and C6-7 levels. IMPRESSION: Stable multilevel degenerate changes basically unchanged from the previous CT scan cervical spine 06/18/2020, no acute osseous pathology identified Dictated by: Dr. Jacinto Elder MD 07/29/2020 09:54 Dr. Jacinto Elder MD in [place] 07/29/2020 09:54
[2020-07-29 09:04] LABS: VBG HCO3 27.9 mmol/L (23-30); VBG Oxygen Saturation 95.9 % (50-70); VBG PH 7.33 mmol/L (7.31-7.41); VBG Total CO2 29.6 mmol/L (23-27)
[2020-07-29 09:07] LABS: NT Pro Brain Natriuretic Pep. 1110 pg/mL (0-450)
[2020-07-29 09:07] LABS: VBG PCO2 54.1 mmol/L (35-51)
[2020-07-29 09:11] LABS: Troponin I < 0.01 ng/ml (0.00-0.034)
--- NOTE | 2020-07-29 09:15 | PC.NURSE ---
pt with rad. v/s delayed.
--- NOTE | 2020-07-29 09:20 | PC.NURSE ---
pt returned from rad.
--- NOTE | 2020-07-29 09:36 | PC.NURSE ---
on phone with Dr. Diop at this time
[2020-07-29 10:00] LABS: Coronavirus 19 IgG Antibody Negative (Negative); Coronavirus 19 IgM Antibody Negative (Negative)
[2020-07-29 10:11] LABS: Microscopic, Urine URINE MICROSCOPIC (MICROSCOPIC)
[2020-07-29 10:14] LABS: Appearance,Urine CLEAR (Clear); Bilirubin,Urine Negative (Negative); Blood, Urine Negative (Negative); Color,Urine YELLOW (Yellow); Glucose,Urine (UA) Negative (Negative); Ketones,Urine Negative (Negative); Leukocyte Esterase,Urine Negative (Negative); Nitrate,Urine Negative (Negative); Protein,Urine Negative (Negative); Specific Gravity, Urine <= 1.005 (1.005-1.030); Urobilinogen,Urine 0.2 EU/dl (0.2)
[2020-07-29 10:28] LABS: RBC,Urine Occasional #/hpf (0-3); Squamous Epithelial Cell,Urine Occasional #/hpf (0-5)
--- NOTE | 2020-07-29 10:40 | P.CONPHA_ITS ---
[facility] Pharmacy VTE Monitoring - Patient Demographics Admission date: 07/29/20 Report Date: 07/29/20 Time: 10:40 Allergies/Adverse Reactions: Patient Allergies oxycodone [OXYCODONE] Allergy (Unknown, Verified 07/29/20 08:40) acetaminophen [From Percocet] Adverse Reaction (Severe, Verified 07/29/20 08:40) Height: 1.63 m Weight: 90.718 kg Patient Problems: Current Active Problems Physical deconditioning (Acute) Weakness (Acute) - VTE Risk Labs: VTE Related Lab Results Hgb 10.1 g/dL (12.2-16.2) L 07/29/20 08:41 Hct 32.2 % (37.0-47.0) L 07/29/20 08:41 Plt Count 68 K/mm3 (142-424) L 07/29/20 08:41 BUN 47 mg/dl (7-17) H 07/29/20 08:41 Creatinine 1.40 mg/dl (0.52-1.04) H 07/29/20 08:41 Estimated Creat Clear 45 mL/min (50-200) 07/29/20 08:41 - Prophylaxis VTE Prophylaxis Ordered?: Yes Types of VTE Prophylaxis: TEDS Knee High Location of Applied Device: Bilateral Lower Extremeties
[2020-07-29 12:42] LABS: Troponin I < 0.01 ng/ml (0.00-0.034)
[2020-07-29 15:10] LABS: Troponin I < 0.01 ng/ml (0.00-0.034)
--- NOTE | 2020-07-29 15:26 | HMH.HP ---
*Admission Date: 07/29/20 *Chief complaint: generalized weakness *History of present illness: Patient is an 80 year old female who presents with shortness of breath. History is limited as patient is awake but drowsy. Per EMS patient has been in and out of the hospital for similar complaints and was told by OSH there was nothing more they could do . En route glucose was 116. She was 96% on room air but was placed on 2L NC for comfort. No other history is able to be obtained. 0900 - Daughter is now in room and further history is able to be obtained. Patient was reportedly hospitalized about a month ago for fluid overload and has been deconditioned since that stay. Prior to that stay, she was able to ambulate independently and complete ADLs. She lives with her daughter. Since then she has required home health and has had PT/OT at home but requires significant help with feeding, ambulating, etc. For the past 2 days she has been drowsy and patient's daughter states she was barely able to transfer from bed to commode with full assist. She did have a fall 3 days ago. Daughter is having trouble taking care of her at home due to extreme weakness. Merari is a regular patient of Dr. Ariel Germain. She has been hospitalized 3 times since November. Most recently at in early June. I spoke with the son this morning. Is that work-ups have been inconclusive. It was felt at one point that general weakness was due to multiple medications, gabapentin was implicated. She takes this for peripheral neuropathy. She sustained a fall 3 days ago, was preceded by several weeks of progressive weakness. Son does relay some difficulties with expression, he does not relate a specific right-sided motor weakness. She has a global loss of strength, particularly noted in her bilateral lower extremities. She has a history of renal insufficiency and CHF. Is followed by a specialist in [place] for this. Due to the history of fall a CT of the C-spine and brain were obtained by the ER physician last night. CT the brain was without acute findings. CT of the C-spine showed diffuse degenerative changes. X-ray was clear. Her regimen included 70/30 insulin twice daily. Possibility of significant hypoglycemia very notable. Post recent venipuncture sugar was 92. We will hold all of her diabetic medications. She is admitted for further evaluation and treatment. One of her medications, Klonopin, has a long half-life. It is unknown whether she took a dose last night or not. Hopefully her somnolence will clear as this particular medication is held. [facility] History Medical History: Reports:: Anxiety, Congestive Heart Failure, Coronary Artery Disease, Diabetes Mellitus Type 2, Hyperlipidemia, Hypertension, Internal Pacemaker, Peripheral Artery Disease, Peripheral Vascular Disease, Renal Disease, Renal Insufficiency Denies:: Cancer, Diabetes Mellitus Type 1, MRSA *Have you ever received a pneumonia vaccine?: Yes *Have you received a flu vaccine this season?: Yes Other Medical History: Reports: Arthritis, Cataracts, Other Laterality Cases: Left: Arthroscopy Knee, Breast Biopsy, Right: Arthroscopy Shoulder, Carpal Tunnel Release, Bilateral: Cataract, Total Knee Replacement Other Surgeries: Yes: Cardiac Catheterization, Cholecystectomy, Colonoscopy, Hysterectomy-Total, Hysterectomy-Partial, Pacemaker, Other Amputation: No (lumbar fusion) Fractures: Yes (left thumb,) - *Social History Last grade of school completed: Some college Smoking Status: Never smoker Tobacco Type: cigarettes # Packs/Day (cigarettes): 1 #Yrs smoked (if former smoker): 9 Alcohol Intake: never Substance Use Type: denies use *Occupational Status:: retired Housing: house Household Members: family *Travel in the last 8 weeks: None - Psychiatric History Pschychiatric History:: Reports:: Anxiety Family Hx:: Coronary Artery Disease, Diabetes, Heart Attack, Hypertension Review of Systems - Review of Systems Review of sy
[2020-07-29 16:26] LABS: POC Glucose,Bedside 109 (70-110)
[2020-07-29 16:37] LABS: Ammonia < 9 umol/L (9-30)
--- NOTE | 2020-07-29 17:14 | PC.NURSE ---
skin tear noted right below r knee, dressing in place, [id number]
--- NOTE | 2020-07-29 17:17 | PC.NURSE ---
skin tear noted right below r knee, dressing in place, [id number]
--- NOTE | 2020-07-29 17:18 | PC.NURSE ---
open sore noted to top of coccyx area, 1cmx1.5cm, dressing in place
--- NOTE | 2020-07-29 17:19 | PC.NURSE ---
open sore noted to top of coccyx area, 1cmx1.5cm, dressing in place
--- NOTE | 2020-07-29 17:19 | PC.NURSE ---
blanchable redness and scabes noted to coccyx area
--- NOTE | 2020-07-29 17:20 | PC.NURSE ---
healed skin tear noted to R forearm, 1.5cm long x 0.5cm wide
--- NOTE | 2020-07-29 17:22 | PC.NURSE ---
healed skin tear noted to RLE, dressing in place, [id number]
--- NOTE | 2020-07-29 17:23 | PC.NURSE ---
healed skin tear noted to RLE, dressing in place, [id number]
--- NOTE | 2020-07-29 18:40 | PC.NURSE ---
PT IS A&O TO NAME AND BIRTHDAY ONLY. PT HAS TOLERATED ROOM AIR WELL THROUGHOUT SHIFT. RESPIRATIONS REGULAR AND UNLABORED. LUNG SOUNDS DIMINISHED THROUGHOUT. NO COUGH NOTED. ACTIVE BOWEL SOUNDS HEARD IN ALL 4 QUADRANTS. SOFT AND NONTENDER ABDOMEN. NO BM THUS FAR. ASIF CATHETER IN PLACE W CLEAR YELLOW URINE NOTED. NO KINKS NOTED. PT HAS ASLEEP MOST OF THE SHIFT. SHE HAS WOKEN UP WHEN SPOKEN TOO OR HAD A SOFT SHAKE. SHE HASN'T SPOKEN MUCH AND IS VERY SOFT SPOKEN. FAMILY REPORTS PT BEING LIKE THIS SINCE YESTERDAY. PT HASN'T REPORTED ANY PAIN THUS FAR. SHE HAS BEEN TURNED Q 2 HOURS. HEALED SKIN TEAR NOTED TO R FOREARM AND RLE. SKIN TEAR NOTED R KNEE. DRESSINGS NOTED TO ALL SKIN TEARS. BLANCHABLE REDNESS AND SCABES NOTED TO COCCYX AREA WELL SMALL OPEN SORE. DRESSING IN PLACE. PICTURES ON CHART. DAUGHTER HAS BEEN AT [place] FOR PART OF THE SHIFT THEN SON SWITCHED PLACES AND HAS BEEN AT BEDSIDE. HOME MEDS IN [place]. BED ALARM ON TO [employer]AF[employer]. PT IS CURRENTLY SLEEPING. CALL LIGHT WITHIN REACH. BED IN LOWEST POSITION. VSS. WILL CONTINUE TO MONITOR.
[2020-07-29 20:52] LABS: POC Glucose,Bedside 112 (70-110)
--- NOTE | 2020-07-29 21:18 | XR_ITS ---
PROCEDURE: XR CHEST PORTABLE CLINICAL HISTORY: hypoxia, lethargy, abnormal previous cxr COMPARISON: CR XR CHEST PORTABLE from 11/30/[address] CHEST WO CON from 12/01/2019 CR XR CHEST 2V from 06/20/2020 CR XR CHEST PORTABLE from 07/29/2020 FINDINGS: There is borderline cardiomegaly without failure. There are low lung volumes with diffuse bilateral alveolar opacification consistent with bilateral pneumonia or pulmonary edema. No acute bony abnormalities. IMPRESSION: Worsening bilateral alveolar disease consistent with worsening pneumonia or pulmonary edema. Dictated by: Andrae Khan MD 07/30/2020 05:14 Andrae Khan MD in [place] 07/30/2020 05:14
[2020-07-29 21:26] LABS: Basophils % 0.2 % (0.1-2.0); Eosinophils % 0.3 % (0.1-12.0); Hemoglobin 10.1 g/dL (12.2-16.2); Lymphocytes # 0.6 K/mm3 (0.7-4.5); Lymphocytes % 11.6 % (10-50); Mean Corpuscular HGB Conc 31.7 g/dL (31.8-35.4); Mean Corpuscular Hemoglobin 33.5 pg (27.0-31.2); Mean Corpuscular Volume 105.7 fl (81-99); Monocytes # 0.3 K/mm3 (0.1-1.0); Monocytes % 5.2 % (1.7-9.3); Neutrophils % 82.7 % (37.0-80.0); Platelet Count 71 K/mm3 (142-424); Red Blood Count 3.03 M/mm3 (4.20-5.40); Red Cell Distribution Width 17.2 % (11.5-17.5); White Blood Count 4.8 K/mm3 (4.8-10.8)
[2020-07-29 21:26] LABS: ABG Base Excess 2.6 mmol/L (-2.4-2.3); ABG HCO3 27.9 mmhg (22.0-26.0); ABG Oxygen Saturation 91 % (90-100); ABG PCO2 49.4 mmhg (35.0-45.0); ABG PH 7.37 mmol/L (7.35-7.45); ABG PO2 59.4 mmhg (80-100); ABG TCO2 29.4 mmhg (23-27); Allen's Test Y; Oxygen R/A %; Source R/R
[2020-07-29 21:33] LABS: Lactic Acid 0.6 mmol/L (0.7-2.1)
[2020-07-29 21:34] LABS: Alanine Aminotransferase 28 U/L (12-78); Albumin Level 3.6 g/dl (3.5-5.0); Albumin/Globulin Ratio 1.2 (1.1-1.8); Alkaline Phosphatase 143 U/L (38-126); Anion Gap 10.5 mEq/L (5-15); Aspartate Amino Transferase 39 U/L (14-36); Bilirubin,Total 0.6 mg/dl (0.2-1.3); Blood Urea Nitrogen 41 mg/dl (7-17); Calcium 9.8 mg/dl (8.4-10.2); Carbon Dioxide 28 mmol/L (22.0-30.0); Chloride 105 mmol/L (98-107); Creatinine Clearance Estimated 51 mL/min (50-200); Estimated Glomerular Filt Rate 39 ml/min (>60); GFR (African American) 48 ML/MIN (>60); Globulin 2.9 g/dL (1.3-3.2); Potassium 4.5 mmoL/L (3.5-5.1); Sodium 139 mmol/L (136-145); Total Protein,Serum 6.5 g/dl (6.3-8.2)
[2020-07-29 21:41] LABS: Glucose 115 mg/dl (74-100)
[2020-07-29 21:43] LABS: NT Pro Brain Natriuretic Pep. 1180 pg/mL (0-450)
--- NOTE | 2020-07-29 22:34 | PC.NURSE ---
2153Called daughter Francisca per pt request to update on pt status. Daughter verbalized understanding and asked that I call back should pt condition worsen.
[2020-07-30] VITALS (20 sets, daily range): BP systolic 90–135; BP diastolic 43–66; PULSE 76–118; RESP 14–32; TEMP 34.7–37.9; O2SAT 89–97; BMI 30.9
--- NOTE | 2020-07-30 01:14 | PC.NURSE ---
At beginning of shift, pt was hypothermic with rectal temp of 89.9. Gogo hugger placed on pt with warm blankets. Room thermostat turned up to 80 degree to increase ambient room temp. Q1H temp checks show pt temp slowly increasing. As her temp increases, pt becomes more animated in answering questions and following commands. Dr. Diop has been contact several times thus far (see Provider Notifications) of pt status and family was contacted with update on pt status. Q1H vital signs checks continue.
--- NOTE | 2020-07-30 01:39 | PC.NURSE ---
Pt temp 97.1 rectal. Gogo hugger removed, warm blankets reapplied. Will recheck temp in 1 hr to make it has stabilized.
--- NOTE | 2020-07-30 03:17 | PC.NURSE ---
Pt is quicker with both oral responses and following commands now. Temp is 97.1 rectally. IVF on hold per MD orders. Left arm is edematous and tender from iv infiltration earlier in shift, elevated in pillow. Denies pain/soa otherwise. Breath sounds very diminished in all lobes.
[2020-07-30 05:47] LABS: POC Glucose,Bedside 116 (70-110)
[2020-07-30 05:57] LABS: Basophils % 0.2 % (0.1-2.0); Eosinophils % 0.1 % (0.1-12.0); Hematocrit 31.2 % (37.0-47.0); Hemoglobin 9.8 g/dL (12.2-16.2); Lymphocytes # 0.5 K/mm3 (0.7-4.5); Lymphocytes % 6.8 % (10-50); Mean Corpuscular HGB Conc 31.2 g/dL (31.8-35.4); Mean Corpuscular Hemoglobin 32.9 pg (27.0-31.2); Mean Corpuscular Volume 105.5 fl (81-99); Mean Platelet Volume 11.2 fl (7.4-10.4); Monocytes # 0.6 K/mm3 (0.1-1.0); Monocytes % 7.6 % (1.7-9.3); Neutrophils # 6.9 K/mm3 (1.8-7.8); Neutrophils % 85.4 % (37.0-80.0); Platelet Count 102 K/mm3 (142-424); Red Blood Count 2.96 M/mm3 (4.20-5.40); Red Cell Distribution Width 17.6 % (11.5-17.5); White Blood Count 8.1 K/mm3 (4.8-10.8)
[2020-07-30 06:07] LABS: MANUAL DIFFERENTIAL MANUAL DIFFERENTIAL (MANUAL DIFF)
[2020-07-30 06:08] LABS: Lymphocytes % 5 % (10-50); Neutrophils % 89 % (42-76); Platelet Estimate Slight Decrease; Total Cells Counted 100
[2020-07-30 06:09] LABS: Hypochromasia 1+; Macrocytosis 2+; Rouleaux 1+; Toxic Granulation 1+
[2020-07-30 06:19] LABS: Chloride 105 mmol/L (98-107); Potassium 5.1 mmoL/L (3.5-5.1); Sodium 139 mmol/L (136-145)
[2020-07-30 06:22] LABS: Alanine Aminotransferase 29 U/L (12-78); Albumin Level 3.8 g/dl (3.5-5.0); Albumin/Globulin Ratio 1.4 (1.1-1.8); Alkaline Phosphatase 134 U/L (38-126); Anion Gap 14.1 mEq/L (5-15); Aspartate Amino Transferase 40 U/L (14-36); Bilirubin,Total 0.7 mg/dl (0.2-1.3); Blood Urea Nitrogen 42 mg/dl (7-17); Carbon Dioxide 25 mmol/L (22.0-30.0); Creatinine Clearance Estimated 44 mL/min (50-200); Estimated Glomerular Filt Rate 33 ml/min (>60); GFR (African American) 40 ML/MIN (>60); Globulin 2.8 g/dL (1.3-3.2); Total Protein,Serum 6.6 g/dl (6.3-8.2)
[2020-07-30 06:23] LABS: Calcium 9.6 mg/dl (8.4-10.2); Glucose 120 mg/dl (74-100)
--- NOTE | 2020-07-30 11:12 | HMH.PHAINT ---
MEDICATION RECONCILIATION COMPLETED ON PATIENT USING EXTERNAL FILL HISTORY FROM PHARMACY. -VANNESA MACHUCA, JOHNATHOND
--- NOTE | 2020-07-30 11:39 | PC.NURSE ---
1125 Reviewed VS with patient's primary RN.
[2020-07-30 11:56] LABS: POC Glucose,Bedside 169 (70-110)
--- NOTE | 2020-07-30 12:48 | HMH.ACPN2 ---
Internal Medicine - PN: Subj *Date: 07/30/20 *Time: 13:23 Interval history: hypothermic over the night repeat cxr suggestive of pneumonia candice/carmen on board uc=no growth after 24 hours bc pending core temp rising remains somnolent/unresponsive would rouse very briefly when seen yesterday plt from 60's to 102 today wbc stable I spoke with Dr Germain this morning he relays history of mattie, pt declined cpap admitted previously to [facility], declined rehab he was prepared to place in hospice care Exam Vital signs and Labs for Last 24 Hours: Temp Pulse Resp BP Pulse Ox 100.0 F H 96 H 32 H 90/44 L 89 L 07/30/20 11:33 07/30/20 11:25 07/30/20 11:25 07/30/20 11:25 07/30/20 11:25 Laboratory Results - last 24 hr 07/29/20 14:35: Troponin I < 0.01 07/29/20 15:51: POC Glucose 109 07/29/20 16:15: Ammonia < 9 L 07/29/20 16:15: TSH 5.30 H 07/29/20 20:44: POC Glucose 112 H 07/29/20 21:13: Lactate 0.6 L 07/29/20 21:13: WBC 4.8, RBC 3.03 L, Hgb 10.1 L, Hct 32.0 L, MCV 105.7 H, MCH 33.5 H, MCHC 31.7 L, RDW 17.2, Plt Count 71 L, MPV 11.0 H, Neut % (Auto) 82.7 H, Lymph % (Auto) 11.6, [place] % (Auto) 5.2, Eos % (Auto) 0.3, Baso % (Auto) 0.2, Neut # (Auto) 4.0, Lymph # (Auto) 0.6 L, [place] # (Auto) 0.3, Eos # (Auto) 0.0, Baso # (Auto) 0.0 07/29/20 21:13: Sodium 139, Potassium 4.5, Chloride 105, Carbon Dioxide 28, Anion Gap 10.5, BUN 41 H, Creatinine 1.30 H, Estimated Creat Clear 51, Estimated GFR 39 L, Est GFR ( Amer) 48 L, Glucose 115 H D, Calcium 9.8, Total Bilirubin 0.6, AST 39 H, ALT 28, Alkaline Phosphatase 143 H, NT-Pro-B Natriuret Pep 1180 H, Total Protein 6.5, Albumin 3.6, Globulin 2.9, Albumin/Globulin Ratio 1.2 07/29/20 21:24: Specimen Source R/r, O2 % R/a, ABG pH 7.37, ABG pCO2 49.4 H, ABG pO2 59.4 L, ABG HCO3 27.9 H, ABG Total CO2 29.4 H, ABG O2 Saturation 91, ABG Base Excess 2.6 H, Andrae Test Y 07/30/20 05:29: POC Glucose 116 H 07/30/20 05:39: WBC 8.1 D, RBC 2.96 L, Hgb 9.8 L, Hct 31.2 L, MCV 105.5 H, MCH 32.9 H, MCHC 31.2 L, RDW 17.6 H, Plt Count 102 L D, MPV 11.2 H, Neut % (Auto) 85.4 H, Lymph % (Auto) 6.8 L, [place] % (Auto) 7.6, Eos % (Auto) 0.1, Baso % (Auto) 0.2, Neut # (Auto) 6.9, Lymph # (Auto) 0.5 L, [place] # (Auto) 0.6, Eos # (Auto) 0.0, Baso # (Auto) 0.0, Total Counted 100, Neutrophils % (Manual) 89 H, Band Neutrophils % 6.0, Lymphocytes % (Manual) 5 L, Toxic Granulation 1+, Platelet Estimate Slight decrease, Hypochromasia 1+, Macrocytosis 2+, Rouleaux 1+ 07/30/20 05:39: Sodium 139, Potassium 5.1, Chloride 105, Carbon Dioxide 25, Anion Gap 14.1, BUN 42 H, Creatinine 1.50 H, Estimated Creat Clear 44, Estimated GFR 33 L, Est GFR ( Amer) 40 L, Glucose 120 H, Calcium 9.6, Total Bilirubin 0.7, AST 40 H, ALT 29, Alkaline Phosphatase 134 H, Total Protein 6.6, Albumin 3.8, Globulin 2.8, Albumin/Globulin Ratio 1.4 07/30/20 11:33: POC Glucose 169 H I & O for Last 24 hours: Intake & Output 07/28/20 07/29/20 07/29/20 07/30/20 00:59 00:59 23:59 23:59 Intake Total 350 / 350 Output Total 350 / 350 Balance 0 / 0 Weight 209 lb Microbiology Reports for the Last 24 Hours: Microbiology 07/29/20 10:04 Urine,Catheterized Urine Culture - Preliminary NO GROWTH AFTER 24 HOURS - Constitutional obtunded - *Routine HEENT Exam Head: Present: atraumatic Eye: Absent: conjunctival icterus ENT: Present: mucous membranes moist - *Routine Neck Exam Present: trachea midline. Absent: JVD - *Routine Respiratory Exam Present: crackles, diminished air movement. Absent: accessory muscle use, respiratory distress - *Routine Cardiovascular Exam Present: RRR - *Routine Abdominal Exam Present: soft. Absent: tenderness, distended, guarding - *Routine Extremities Exam Present: ESTUARDO stockings. Absent: calf tenderness - *Routine Skin Exam Present: ecchymosis. Absent: jaundice Comments: see nursing notes for pictures of skin tears and coccyx - *Routine N
--- NOTE | 2020-07-30 13:13 | XR_ITS ---
PROCEDURE: XR CHEST PORTABLE CLINICAL HISTORY: LUNGS SOUND WORSE COMPARISON: CT CT CHEST WO CON from 12/01/2019 CR XR CHEST 2V from 06/20/2020 CR XR CHEST PORTABLE from 07/29/2020 CR XR CHEST PORTABLE from 07/29/2020 FINDINGS: The cardiomediastinal silhouette and pulmonary vascularity are within normal limits. There is trace right-sided effusion. Previously noted diffuse bilateral alveolar disease has shown improvement with some residual in the right lower lobe. No acute bony abnormalities. IMPRESSION: Interval improvement in the diffuse bilateral airspace disease with some residual in the right lower lobe. Dictated by: Andrae Khan MD 07/30/2020 14:07 Andrae Khan MD in [place] 07/30/2020 14:07
--- NOTE | 2020-07-30 15:35 | PC.NURSE ---
Addendum entered by Clara Chandler RN 07/30/20 15:50: Pt transferred to stepdown at 1430 Original Note: Dr Diop notified that patient was hypotensive, has increased temp (see vs), O2 demand has increased (NC @ 4L) and that patient was non responsive. New orders of stat chest xray, 250 ml bolus of ns, start levophed drip and titrate to keep systolic > 100, and pulmonary consult stat. Annangoh's office notified of consult and med orders faxed to pharmacy. Levophed started at 1430, put on standby at 1530. VSS at this time. Per Dr Diop he thinks pt is actively dying. He states he has talked to patients daughter about this and she is aware. Will continue to monitor.
--- NOTE | 2020-07-30 16:01 | CA_ITS ---
APPROVED REPORT EXAM: Comprehensive 2D, Doppler, and color-flow Echocardiogram Coat Fitter: Gita Lamas CRT Ht: 5 ft 6 in Wt: 209lbs BSA: 2.04 BP: 112/85 mmHg Indications: Diabetes, CAD, Hyperlipidemia, Hypertension/HDD 2D Dimensions LVOT 1.63 cm (M/F) 1.5-2.5 M-Mode Dimensions RVDd 3.23 cm (0.9-2.6) LA Diam 4.05 cm (1.9-4.0) LVDd 4.95 cm (3.5-5.7) Ao Diam 3.30 cm (2.0-3.7) LVDs 3.19 cm (3.5-5.7) IVSd 1.40 cm (0.6-1.1) PWd 0.83 cm (0.6-1.1) EF (Teich) 64.80% FS 35.60% EDV (Teich) 115.50 mL ESV (Teich) 40.60 mL LV Diastology E Decel Time 107.00 (160-240 msec) E/A Ratio 0.46 MED E' 5.20 (< 7 cm/sec) E'/MED E' Ratio 24.46 (>14) LAT E' 8.30 (<10 cm/sec) E/LAT E' Ratio 15.33 (>14) Aortic Valve AO Peak GR. 11.20 mmHg Mitral Valve MV A Velocity 277.00 (40-130 cm/s) E/A Ratio 0.46 MV Decel. Time 107.00 (160-240 ms) Pulmonary Valve PV Peak Velocity 123.00 (50-150 cm/s) Tricuspid Valve TR P. Velocity 348.00 cm/s RAP Estimate 10.00 mmHg RVSP 58.40 mmHg Left Ventricle Left atrium is moderately enlarged, left ventricle is normal size, mild concentric left ventricular hypertrophy, visually estimated ejection fraction 55% with no regional wall motion abnormality, grade 2 diastolic dysfunction seen with tissue Doppler evidence of raise left atrial pressure. Right Ventricle Right atrium and right ventricle moderately enlarged with normal contractility. Aortic Valve Aortic valve is thickened and calcified, leaflet continue to display good mobility, there is no aortic stenosis or aortic insufficiency. Mitral Valve Mitral valve leaflets are minimally thickened, there is moderate mitral regurgitation. Tricuspid Valve Tricuspid valve is grossly normal, there is moderate tricuspid regurgitation, calculated right ventricular systolic pressure is 54 mmHg. Pulmonic Valve Pulmonic valve is poorly visualized. Great Vessels Aortic root is normal size. Pericardium No significant pericardial effusion noted. Conclusion 1. Biatrial enlargement, normal left ventricular size, mild concentric left ventricular hypertrophy, visually estimated ejection fraction 55% with no regional wall motion abnormality, grade 2 diastolic dysfunction seen with tissue Doppler evidence of raise left atrial pressure. 2. Moderately enlarged right ventricle with normal contractility. 3. Moderate mitral and tricuspid regurgitation, calculated right ventricular systolic pressure is 54 mmHg. 4. No significant pericardial effusion noted. Electronically signed by : Zuhair Kaufman, 07/31/2020 05:18:46
[2020-07-30 16:15] LABS: ABG Base Excess -3.6 mmol/L (-2.4-2.3); ABG Oxygen Saturation 90 % (90-100); ABG PCO2 33.6 mmhg (35.0-45.0); ABG PH 7.41 mmol/L (7.35-7.45); ABG PO2 59.4 mmhg (80-100)
[2020-07-30 16:17] LABS: Allen's Test Patient Unable; Oxygen 4L NC %; Source Right Radial
[2020-07-30 16:34] LABS: POC Glucose,Bedside 208 (70-110)
--- NOTE | 2020-07-30 16:36 | HMH.PULMCON ---
*Admission Date: 07/29/20 *Reason for consult:: Pneumonia *History of present illness: Ms. Crawford is a 80-year-old female with a history of anxiety, congestive heart failure coronary artery disease, diabetes, dyslipidemia, recent history of pneumonia was presented to the hospital with worsening altered mentation and shortness of breath for the last week and pulmonary was consulted for further management. On further questioning patient family stated that she was recently admitted to the [facility] for presumed volume overload and she was discharged and since then patient was gradually become obtunded and also had an episode of file last week. Family denies any recent episode of fevers chills, worsening cough or any worsening productive phlegm. Patient obtunded only arousable to sternal rub, could not obtain any history or review of systems from the patient [facility] History Medical History: Reports:: Anxiety, Congestive Heart Failure, Coronary Artery Disease, Diabetes Mellitus Type 2, Hyperlipidemia, Hypertension, Internal Pacemaker, Peripheral Artery Disease, Peripheral Vascular Disease, Renal Disease, Renal Insufficiency Denies:: Cancer, Diabetes Mellitus Type 1, MRSA *Have you ever received a pneumonia vaccine?: Yes *Have you received a flu vaccine this season?: Yes Other Medical History: Reports: Arthritis, Cataracts, Other Laterality Cases: Left: Arthroscopy Knee, Breast Biopsy, Right: Arthroscopy Shoulder, Carpal Tunnel Release, Bilateral: Cataract, Total Knee Replacement Other Surgeries: Yes: Cardiac Catheterization, Cholecystectomy, Colonoscopy, Hysterectomy-Total, Hysterectomy-Partial, Pacemaker, Other Amputation: No (lumbar fusion) Fractures: Yes (left thumb,) - *Social History Last grade of school completed: Some college Smoking Status: Never smoker Tobacco Type: cigarettes # Packs/Day (cigarettes): 1 #Yrs smoked (if former smoker): 9 Alcohol Intake: never Substance Use Type: denies use *Occupational Status:: retired Housing: house Household Members: family *Travel in the last 8 weeks: None - Psychiatric History Pschychiatric History:: Reports:: Anxiety Family Hx:: Coronary Artery Disease, Diabetes, Heart Attack, Hypertension ROS - Review of Systems Review of systems:: unable to obtain Review of systems unable to obtain as patient obtunded and could not participate in active conversation Meds Home Medications Medication Instructions Recorded Confirmed Type allopurinol 100 mg tablet 100 mg PO BID 90 Days #180 tab 02/25/19 07/29/20 History linagliptin 5 mg tablet 5 mg PO DAILY 90 Days tab 02/25/19 07/29/20 History pravastatin 40 mg tablet 40 mg PO HS 90 Days tab 02/25/19 07/29/20 History Glucosamine Sulfate Dipot Chlr 1 tab PO DAILY 04/13/19 07/29/20 History [Glucosamine] Fluoxetine HCl 40 mg PO DAILY 12/01/19 07/29/20 History Multivit-Minerals/Folic/Ginkgo 1 each PO DAILY 12/01/19 07/29/20 History [One Daily Women's 50+ Tablet] clonazepam 0.5 mg tablet 0.5 mg PO HSP PRN 30 Days #30 tab 05/22/20 07/30/20 History insulin aspar prot-insulin aspart 35 unit SQ BID ml 05/22/20 07/29/20 History 100 unit/mL (70-30) subcutaneous pen spironolactone 25 mg tablet 12.5 mg PO DAILY tab 05/22/20 07/29/20 History torsemide 20 mg tablet 20 mg PO DAILY 90 Days #90 tab 05/22/20 07/29/20 History Albuterol Sulfate [Proventil Hfa] 1 puff IH QID PRN 07/29/20 07/29/20 History Ferrous Sulfate [Iron 325mg Tab] 325 mg PO DAILY 07/29/20 07/29/20 History Gabapentin [Gabapentin 100mg Cap] 100 mg PO TID 07/29/20 07/29/20 History Primidone 50 mg PO BID 07/29/20 07/29/20 History Allergies Allergy/AdvReac Type Severity Reaction Status Date / Time oxycodone [OXYCODONE] Allergy Unknown Verified 07/29/20 08:40 acetaminophen [From Percocet] AdvReac Severe Verified 07/29/20 08:40 Exam Radiology reports for Last 24 Hours: Chest x-ray from admission showed improving pulmonary infiltrates as compared to her CT from 06/20/2020
[2020-07-30 17:11] LABS: Adenovirus,PCR Not Detected (NotDetected); Bordetella Pertussis Not Detected (NotDetected); Chlamydophila Pneumoniae, PCR Not Detected (NotDetected); Coronavirus 229E Not Detected (NotDetected); Coronavirus NL63 Not Detected (NotDetected); Coronavirus OC43 Not Detected (NotDetected); Coronovirus HKU1,PCR Not Detected (NotDetected); Human Metapneumovirus Not Detected (NotDetected); Influenza A, PCR Not Detected (NotDetected); Influenza AH1, 2009 Not Detected (NotDetected); Influenza AH1, PCR Not Detected (NotDetected); Influenza AH3,PCR Not Detected (NotDetected); Influenza B, PCR Not Detected (NotDetected); Mycoplasma Pneumoniae, PCR Not Detected (NotDetected); Parainfluenza 1, PCR Not Detected (NotDetected); Parainfluenza 2, PCR Not Detected (NotDetected); Parainfluenza 3, PCR Not Detected (NotDetected); Parainfluenza 4, PCR Not Detected (NotDetected); Respiratory Syncytial Virus Not Detected (NotDetected); Rhinovirus/Enterovirus Not Detected (NotDetected)
[2020-07-30 17:42] LABS: Lactic Acid 2.2 mmol/L (0.7-2.1)
[2020-07-30 17:47] LABS: D-Dimer 1.38 ug/mL (0.15-8.0)
--- NOTE | 2020-07-30 17:51 | PC.NURSE ---
verified vanc dosing with herbert garcia, 1.75grams loading dose and maintenance dose to be 1.5gms, read back and verified. Order faxed to pharmacy
--- NOTE | 2020-07-30 19:25 | INFXCTL.NOTE ---
report given to carrie
[2020-07-30 20:43] LABS: POC Glucose,Bedside 257 (70-110)
[2020-07-30 21:31] LABS: Reflex Lactic Add Lactic Reflex
--- NOTE | 2020-07-30 21:47 | PC.NURSE ---
Pt was suctioned, breath sounds improved. Sputum walked to lab
[2020-07-30 22:06] LABS: Lactic Acid Follow Up (RFLX 1) 2.5 mmol/L (0.7-2.1)
[2020-07-30 23:44] LABS: Reflex Lactic (2 hrs) Add Lactic Reflex
[2020-07-31] VITALS (13 sets, daily range): BP systolic 115–147; BP diastolic 45–87; PULSE 80–96; RESP 14–24; TEMP 36.8–37.6; O2SAT 92–97; BMI 30.6
[2020-07-31 00:13] LABS: Lactic Acid Follow up (RFLX 2) 2.4 mmol/L (0.7-2.1)
--- NOTE | 2020-07-31 03:09 | PC.NURSE ---
patients sats sustaining 98% on 4 l nc, o2 decreased to 2 l nc.
--- NOTE | 2020-07-31 05:39 | PC.NURSE ---
shift summary patient has remained has only responded slightly to deep painful stimuli. cardiac rn has shown sr with 1 st degree avb and ivcd. blood pressures have sustained systolic > 100 and map > 65. breath sounds have been course and diminished throughout all irizarry. has been deep suctioned twice this shift with improvement after each. o2 sats were sustaining 98% on 4 lnc so oxygen decreased to 2 lnc, o2 sats continue to remain and sustain greater than 95%. bowel sounds have been hypo active. family remains at bedside.
--- NOTE | 2020-07-31 06:06 | PC.NURSE ---
yellow colored ring removed due to swelling and given to daughter at bedside
[2020-07-31 06:07] LABS: POC Glucose,Bedside 316 (70-110)
--- NOTE | 2020-07-31 08:05 | FL_ITS ---
PROCEDURE: FL GUIDED LUMBAR PUNCTURE LP CLINICAL INDICATION: Fever w/ altered mentation COMPARISON: No exams were available for comparison FINDINGS: Informed consent was obtained. Under fluoroscopic guidance, a 20 gauge spinal needle was inserted into the L4-5 interspace and clear CSF was withdrawn. Opening pressure was not able to be obtained due the fact patient could not lie on her side. Approximately 12 mL of clear CSF was obtained for analysis. The patient tolerated the procedure well without evidence of immediate complication and left radiology suite in stable condition. Fluoroscopy time: 55 seconds IMPRESSION: Uneventful fluoro guided lumbar puncture. Dictated by: Andrae Khan MD 07/31/2020 12:45 Andrae Khan MD in [place] 07/31/2020 12:45
--- NOTE | 2020-07-31 09:18 | HMH.ACPN2 ---
Internal Medicine - PN: Subj *Date: 07/31/20 *Time: 19:53 Interval history: 80-year-old female patient sitting up in bed, appears to be obtunded will open eyes and answer yes/no questions when verbally stimulated, oxygen saturations 96% on 2 L per nasal cannula. When asked if patient is feeling any pain or any needs she answers no. Lumbar puncture was attempted during the night and was unsuccessful, will order for IR today. Pulmonary has seen and recommends: 3 status improved, this morning on 2 L nasal cannula saturating 96% and above Patient mentation slightly improved, arousable to verbal commands this morning. Lactate increased to 2.4, relatively stable patient hemodynamically stable since yesterday. Antibiotics were escalated to cover meningitis with vancomycin and 2 g of cefepime. Sputum GS showed gram-positive diplococci, will follow with final cultures. Respiratory viral panel negative Plan: - Continue vancomycin and cefepime for possible meningitis along with possible hospital-acquired pneumonia - Rest of the work-up for her altered mentation and sepsis as per the primary team - JamieoNejosefa every 6 hours scheduled Exam Vital signs and Labs for Last 24 Hours: Temp Pulse Resp BP Pulse Ox 98.8 F 92 H 18 127/61 96 07/31/20 07:57 07/31/20 07:57 07/31/20 07:57 07/31/20 07:57 07/31/20 07:57 Laboratory Results - last 24 hr 07/30/20 08:44: Specimen Source Right radial, O2 % 4l nc, ABG pH 7.41, ABG pCO2 33.6 L, ABG pO2 59.4 L, ABG HCO3 21.0 L, ABG Total CO2 22.0 L, ABG O2 Saturation 90, ABG Base Excess -3.6 L, Andrae Test Patient unable 07/30/20 11:33: POC Glucose 169 H 07/30/20 16:11: POC Glucose 208 H 07/30/20 17:00: Chlamy pneumoniae PCR Not detected, Adenovirus (PCR) Not detected, B. pertussis DNA (PCR) Not detected, Coronavirus OC43 (PCR) Not detected, Coronavirus HKU1 (PCR) Not detected, Coronavirus 229E (PCR) Not detected, Coronavirus NL63 (PCR) Not detected, Human Metapneumovir PCR Not detected, Influenza A (H1) PCR Not detected, Influ A (H1N1/09) PCR Not detected, Influenza A (H3) PCR Not detected, Influenza Type A (PCR) Not detected, Influenza Type B (PCR) Not detected, M. pneumoniae (PCR) Not detected, Parainfluenza 1 (PCR) Not detected, Parainfluenza 2 (PCR) Not detected, Parainfluenza 3 (PCR) Not detected, Parainfluenza 4 (PCR) Not detected, RSV (PCR) Not detected, Entero/Rhino (PCR) Not detected 07/30/20 17:25: D-Dimer 1.38 07/30/20 17:25: Lactate 2.2 H 07/30/20 20:32: POC Glucose 257 H 07/30/20 21:45: Lactate 2.5 H 07/30/20 23:50: Lactate 2.4 H 07/31/20 06:01: POC Glucose 316 H* I & O for Last 24 hours: Intake & Output 07/29/20 07/29/20 07/30/20 07/31/20 00:59 23:59 23:59 23:59 Intake Total 704 / 1054 470 / 470 Output Total 700 / 700 225 / 225 Balance 4 / 354 245 / 245 Weight 209 lb 206 lb 9.6 oz Microbiology Reports for the Last 24 Hours: Microbiology 07/30/20 21:38 Sputum - Expectorated Sputum Gram Stain - Final 07/30/20 21:38 Sputum - Expectorated Sputum Sputum Culture - Preliminary 07/29/20 10:04 Urine,Catheterized Urine Culture - Preliminary NO GROWTH AFTER 24 HOURS - Constitutional chronically ill appearing - *Routine HEENT Exam Head: Present: normocephalic ENT: Present: mucous membranes dry - *Routine Neck Exam Present: trachea midline. Absent: tracheal deviation - *Routine Respiratory Exam Present: rhonchi. Absent: accessory muscle use - *Routine Cardiovascular Exam Present: RRR - *Routine Abdominal Exam Present: soft, normoactive bowel sounds, tenderness. Absent: firm - *Routine Extremities Exam Present: edema, tenderness, ESTUARDO stockings - *Routine Skin Exam Present: wounds Comments: RLE Skin Tear w/ Drsg C/D/I Coccyx w/ Drsg C/D/I - *Routine Neurological Exam Present: alert, altered mental status. Absent: tremors - Routine Psychiatric Exam Present: unable to assess Assessment and Plan (1) Phys
[2020-07-31 09:49] LABS: INR 1.23 (0.9-1.1); Prothrombin Time 13.4 seconds (9.4-11.8)
[2020-07-31 09:50] LABS: Activated Partial Thrombo Time 34.7 seconds (23.6-34.0)
--- NOTE | 2020-07-31 09:54 | HMH.PHACONS ---
- Pharmacy Consult Date: 07/31/20 Time: 09:54 Referring provider: DR. JIANG Reason for Consult:: VANCOMYCIN DOSING Allergies and ADEs:: Allergies Allergy/AdvReac Type Severity Reaction Status Date / Time oxycodone [OXYCODONE] Allergy Unknown Verified 07/29/20 08:40 Home Medications:: Home Medications Medication Instructions Recorded Confirmed Type allopurinol 100 mg tablet 100 mg PO BID 90 Days #180 tab 02/25/19 07/29/20 History linagliptin 5 mg tablet 5 mg PO DAILY 90 Days tab 02/25/19 07/29/20 History pravastatin 40 mg tablet 40 mg PO HS 90 Days tab 02/25/19 07/29/20 History Glucosamine Sulfate Dipot Chlr 1 tab PO DAILY 04/13/19 07/29/20 History [Glucosamine] Fluoxetine HCl 40 mg PO DAILY 12/01/19 07/29/20 History Multivit-Minerals/Folic/Ginkgo 1 each PO DAILY 12/01/19 07/29/20 History [One Daily Women's 50+ Tablet] clonazepam 0.5 mg tablet 0.5 mg PO HSP PRN 30 Days #30 tab 05/22/20 07/30/20 History insulin aspar prot-insulin aspart 35 unit SQ BID ml 05/22/20 07/29/20 History 100 unit/mL (70-30) subcutaneous pen spironolactone 25 mg tablet 12.5 mg PO DAILY tab 05/22/20 07/29/20 History torsemide 20 mg tablet 20 mg PO DAILY 90 Days #90 tab 05/22/20 07/29/20 History Albuterol Sulfate [Proventil Hfa] 1 puff IH QID PRN 07/29/20 07/29/20 History Ferrous Sulfate [Iron 325mg Tab] 325 mg PO DAILY 07/29/20 07/29/20 History Gabapentin [Gabapentin 100mg Cap] 100 mg PO TID 07/29/20 07/29/20 History Primidone 50 mg PO BID 07/29/20 07/29/20 History Height: 1.75 m Weight: 93.712 kg Laboratory Results:: Laboratory Results - last 24 hr 07/30/20 08:44: Specimen Source Right radial, O2 % 4l nc, ABG pH 7.41, ABG pCO2 33.6 L, ABG pO2 59.4 L, ABG HCO3 21.0 L, ABG Total CO2 22.0 L, ABG O2 Saturation 90, ABG Base Excess -3.6 L, Andrae Test Patient unable 07/30/20 11:33: POC Glucose 169 H 07/30/20 16:11: POC Glucose 208 H 07/30/20 17:00: Chlamy pneumoniae PCR Not detected, Adenovirus (PCR) Not detected, B. pertussis DNA (PCR) Not detected, Coronavirus OC43 (PCR) Not detected, Coronavirus HKU1 (PCR) Not detected, Coronavirus 229E (PCR) Not detected, Coronavirus NL63 (PCR) Not detected, Human Metapneumovir PCR Not detected, Influenza A (H1) PCR Not detected, Influ A (H1N1/09) PCR Not detected, Influenza A (H3) PCR Not detected, Influenza Type A (PCR) Not detected, Influenza Type B (PCR) Not detected, M. pneumoniae (PCR) Not detected, Parainfluenza 1 (PCR) Not detected, Parainfluenza 2 (PCR) Not detected, Parainfluenza 3 (PCR) Not detected, Parainfluenza 4 (PCR) Not detected, RSV (PCR) Not detected, Entero/Rhino (PCR) Not detected 07/30/20 17:25: D-Dimer 1.38 07/30/20 17:25: Lactate 2.2 H 07/30/20 20:32: POC Glucose 257 H 07/30/20 21:45: Lactate 2.5 H 07/30/20 23:50: Lactate 2.4 H 07/31/20 06:01: POC Glucose 316 H* 07/31/20 09:24: PT 13.4 H, INR 1.23 H, APTT 34.7 H Medical History: Reports:: Anxiety, Congestive Heart Failure, Coronary Artery Disease, Diabetes Mellitus Type 2, Hyperlipidemia, Hypertension, Internal Pacemaker, Peripheral Artery Disease, Peripheral Vascular Disease, Renal Disease, Renal Insufficiency Denies:: Cancer, Diabetes Mellitus Type 1, MRSA Assessment and Plan (1) Physical deconditioning Status: Chronic Category: Medical Code(s): R53.81 - Other malaise (2) Weakness Status: Chronic Category: Medical Code(s): R53.1 - Weakness (3) Chronic renal disease Status: Chronic Qualifiers: Chronic kidney disease stage: stage 4 (severe) Qualified Code(s): N18.4 - Chronic kidney disease, stage 4 (severe) Category: Medical Code(s): N18.9 - Chronic kidney disease, unspecified (4) Type 2 diabetes mellitus Status: Chronic Qualifiers: Diabetes mellitus superintendent container terminal insulin use: unspecified long-term insulin use status Diabetes mellitus complication status: with neurologic complications Diabetes mellitus complication detail: with unspecified neuropathy Qualified Code(s): E11.40 - Typ
--- NOTE | 2020-07-31 10:07 | HMH.PULMPN ---
Internal Medicine - PN: Subj *Date: 07/31/20 *Time: 10:07 Interval history: No acute respiratory events overnight. This morning on clears nasal cannula oxygen supplementation, saturating at 96% and above Exam - Constitutional Constitutional:: lethargic - HENMT Exam HENMT: normocephalic, atraumatic - Neck Exam Neck:: normal visual inspection, thyroid normal, no lymphadenopathy - Respiratory Exam Comments: Bilateral coarse breath sounds - Cardiovascular Exam Cardiac:: S1, S2 - GI Exam GI:: soft, no hepatosplenomegaly - Neurological Exam Patient appears lethargic and confused - Extremities Exam Extremities: no cyanosis, no clubbing Assessment and Plan (1) Physical deconditioning Status: Chronic Category: Medical Code(s): R53.81 - Other malaise (2) Weakness Status: Chronic Category: Medical Code(s): R53.1 - Weakness (3) Chronic renal disease Status: Chronic Qualifiers: Chronic kidney disease stage: stage 4 (severe) Qualified Code(s): N18.4 - Chronic kidney disease, stage 4 (severe) Category: Medical Code(s): N18.9 - Chronic kidney disease, unspecified (4) Type 2 diabetes mellitus Status: Chronic Qualifiers: Diabetes mellitus care home insulin use: unspecified care home insulin use status Diabetes mellitus complication status: with neurologic complications Diabetes mellitus complication detail: with unspecified neuropathy Qualified Code(s): E11.40 - Type 2 diabetes mellitus with diabetic neuropathy, unspecified Category: Medical Code(s): E11.9 - Type 2 diabetes mellitus without complications (5) Diabetes mellitus with neuropathy Status: Chronic Category: Medical Code(s): E11.40 - Type 2 diabetes mellitus with diabetic neuropathy, unspecified (6) Coronary artery disease Status: Chronic Category: Medical Code(s): I25.10 - Atherosclerotic heart disease of [place] coronary artery without angina pectoris (7) Congestive heart failure Status: Chronic Category: Medical Code(s): I50.9 - Heart failure, unspecified (8) Erosive osteoarthritis Status: Acute Category: Medical Code(s): M15.4 - Erosive (osteo)arthritis (9) Anxiety Status: Chronic Category: Medical Code(s): F41.9 - Anxiety disorder, unspecified (10) Essential hypertension Status: Chronic Category: Medical Code(s): I10 - Essential (primary) hypertension (11) Ecchymosis Status: Acute Category: Medical Code(s): R58 - Hemorrhage, not elsewhere classified (12) Prerenal azotemia Status: Acute Category: Medical Code(s): R79.89 - Other specified abnormal findings of blood chemistry (13) Sepsis with organ dysfunction Status: Acute Category: Medical Code(s): A41.9 - Sepsis, unspecified organism; R65.20 - Severe sepsis without septic shock - Assessment and plan all Dx Assessment and Plan for all problems:: #Pneumonia: #Acute hypoxic respiratory failure: Ms. Crawford is a 80-year-old female with multiple comorbidities presented to the hospital with worsening respiratory failure and altered mentation. CT head on admission did not show any acute hemorrhage. Serum Ammonia and TSH are within normal limits. Patient pneumonia improved on her chest x-ray compared to prior. Patient hemodynamically stable since yesterday with mMAP's ranging above 70, lactate slightly elevated from yesterday at 2.4, relatively stable. Interval update: 3 status improved, this morning on 2 L nasal cannula saturating 96% and above Patient mentation slightly improved, arousable to verbal commands this morning. Lactate increased to 2.4, relatively stable patient hemodynamically stable since yesterday. Antibiotics were escalated to cover meningitis with vancomycin and 2 g of cefepime. Sputum GS showed gram-positive diplococci, will follow with final cultures. Respiratory viral panel negative Plan: - Continue vancomycin and cefepime for possible meningitis along with possible hospit
--- NOTE | 2020-07-31 10:50 | SW/DCPLANNER ---
Addendum entered by Faina Webb 08/03/20 12:53: [facility] has stated that they will admit this patient under inpatient Hospice today 08/03/2020 1PM. I have relayed this information to Dr Dodson. Family is present in room and aware of this plan. Addendum entered by Faina Webb 08/03/20 11:36: [facility] with Hospice has spoke with family and will be at [facility] to speak with family and evaluate patient between 12PM and 1PM. Addendum entered by Faina Webb 08/03/20 09:38: Per MD/family request patient information has been faxed to [facility]. I will follow up with Geni at [facility] once patient information is reviewed. Original Note: I have spoke with this patients daughter regarding discharge plans once patient is medically stable for discharge. Daughter stated that patient currently lives in [place] with her son and daughter. I explained to daughter that patient is NOT ready for discharge at this time. Daughter stated that once patient is medically stable if she can participates with therapy she would prefer patient to go to [facility]. I did explain to daughter that [facility] is a very extensive rehab that patient would have to participate for several hours a day with at least two different therapies. Daughter stated she understood. I explained to daughter that there are facilities in [facility] that provide care home as well: daughter stated that she was not interested due to facilities not allowing visitors. I did explain that no visitors is with most facilities and could be the same with [facility] depending on which unit patients are placed. I explained to daughter that patient is NOT ready for discharge at this time and I will follow up with patient/family tomorrow morning. Daughter did not have any further questions at this time.
--- NOTE | 2020-07-31 11:22 | PC.NURSE ---
Consent obtained from son for lumbar puncture. Pt transported by stretcher @ 1050 for LP.
[2020-07-31 12:30] LABS: Glucose,CSF 148 mg/dl (40-70)
[2020-07-31 13:08] LABS: Appearance,CSF Clear (Clear); Red Blood Cell,CSF 43 cells/uL (0); Volume,CSF 11 mL; White Blood Cell,CSF 8 cells/uL (0-5)
[2020-07-31 13:28] LABS: Mononuclear WBCs,CSF 100 %; Polynuclear WBCs,CSF 0 %
--- NOTE | 2020-07-31 14:42 | HMH.SLDYSPHA ---
Speech & Language Evaluation Speech/Language Dysphagia Evaluation Start: 07/31/20 14:35 Freq: ONCE Status: Active Protocol: Document 07/31/20 14:35 VARGAS (Rec: 07/31/20 14:41 VARGAS [id number]) Dysphagia Assess/Goals/Plan Assessment Date of Evaluation: 07/31/20 Evaluation Type Initial Certification Assessment/Problems Dysphagia Does Patient Qualify for Service No Qualify/Failure Comment Diet modifications made. Patient unable to follow basic directions. Will consult during length of stay for possible diet modifications Recommendations PHYSICIAN CERTIFICATION: The specified therapy services are required, authorized, and reviewed every 30 days. Diet Recommendations Pureed Liquid Type Recommendations Honey Consistency SL Swallow Guidelines Standard Aspiration Prec. Dysphagia Swallow Precautions/Strategies Sitting Upright (90 deg),Small Bites and Sips,Alternate Liquids/Solids Plan Pt/Guardian verbally ack understanding Yes: RN and son notified of dx/prognosis/goals G -code Required No Speech & Language HPI Language Primary Language Haitian General Information General Current Food Consistancy Regular,Thin Liquids Dentition Good Dentition Oxygen Status Nasal Cannula Facial Symmetry Symmetrical Patient Orientation Person Ability to Follow Directions Poor Communication Ability Mild Impairment Dysphagia:Food Presentation Evaluation Food Type Pureed,Liquid,Pudding Normal/Thin Liquid Response Delay laryngeal elevation, Coughing after swallow,Oral regurgitation Pudding Consistency Liquid Response Unable to form bolus,Residual on tongue Dysphagia Evaluation Summary Ms. Crawford was given the following consistencies: thins via spoon, honey, pudding, pureed. The following signs of dysphagia were noted: penetration and possible aspiration of thins, oral regurgitation with thins, inability to form bolus with pudding. At this time, the most appropriate diet would be pureed with honey thick liquids. Ms. Crawford has difficulty following basic directions so therapy
[2020-07-31 14:47] LABS: Procalcitonin 2.34 ng/mL (0.0-2.0)
[2020-07-31 16:01] LABS: POC Glucose,Bedside 303 (70-110)
[2020-07-31 16:01] LABS: POC Glucose,Bedside 299 (70-110)
--- NOTE | 2020-07-31 16:22 | PC.NURSE ---
Pt has been much more responsive this shift, is able to answer questions w/ yes or no answers. Remains on 2 L O2 per nasal cannula w/ sat maintaining > 90%. Lungs noted to have course breath sounds throughout. Pt does have a loose cough, but is not able to produce a sputum. Oral care performed Q2H this shift as well as suctioning frequently as pt allows. Pt seen today for bedside swallow eval and placed on pureed w/ honey thickened liquids. Pt has had poor PO intake this shift. Is total care, received bed bath and total linen change this shift. Dressing to coccyx changed, site cleaned and pat dry. Pt turned Q2H and repositioned by staff. [place] cath to drain at bedside w/ clear yellow urine. No BM this shift. Abdomen soft, non-tender w/ active BS. Edema noted to BLE, along w/ skin tear to (R) knee and (R) patrick. Bruising scattered. No needs voiced by family who have been present to bedside throughout shift. Call pelaez w/in reach.
--- NOTE | 2020-07-31 19:07 | PC.NURSE ---
report given to carrie
[2020-07-31 20:57] LABS: POC Glucose,Bedside 340 (70-110)
[2020-08-01] VITALS (16 sets, daily range): BP systolic 123–159; BP diastolic 52–68; PULSE 80–98; RESP 16–22; TEMP 36.9–37.7; O2SAT 92–99; BMI 30.7
[2020-08-01 06:18] LABS: POC Glucose,Bedside 307 (70-110)
--- NOTE | 2020-08-01 07:00 | PC.NURSE ---
shift summary patient was more alert this shift. will answer simple yes or no question as well as name. voice weak and mumbled. breath sounds course throughout all irizarry. patient has been on r/a throughout night with sats greater than 92% case monitor shows sr-st, denies pain, nausea, vomiting or soa
[2020-08-01 07:01] LABS: Basophils % 0.1 % (0.1-2.0); Eosinophils % 0.2 % (0.1-12.0); Hematocrit 29.7 % (37.0-47.0); Hemoglobin 8.8 g/dL (12.2-16.2); Lymphocytes # 0.7 K/mm3 (0.7-4.5); Lymphocytes % 7.9 % (10-50); Mean Corpuscular HGB Conc 29.7 g/dL (31.8-35.4); Mean Corpuscular Hemoglobin 32.3 pg (27.0-31.2); Mean Corpuscular Volume 108.6 fl (81-99); Monocytes # 0.5 K/mm3 (0.1-1.0); Monocytes % 5.8 % (1.7-9.3); Neutrophils # 7.9 K/mm3 (1.8-7.8); Neutrophils % 85.9 % (37.0-80.0); Platelet Count 83 K/mm3 (142-424); Red Blood Count 2.74 M/mm3 (4.20-5.40); Red Cell Distribution Width 17.3 % (11.5-17.5); White Blood Count 9.2 K/mm3 (4.8-10.8)
[2020-08-01 07:05] LABS: MANUAL DIFFERENTIAL MANUAL DIFFERENTIAL (MANUAL DIFF)
[2020-08-01 07:06] LABS: Chloride 111 mmol/L (98-107); Potassium 4.3 mmoL/L (3.5-5.1); Sodium 145 mmol/L (136-145)
[2020-08-01 07:09] LABS: Anion Gap 14.3 mEq/L (5-15); Blood Urea Nitrogen 67 mg/dl (7-17); Calcium 9.7 mg/dl (8.4-10.2); Carbon Dioxide 24 mmol/L (22.0-30.0); Creatinine Clearance Estimated 28 mL/min (50-200); Estimated Glomerular Filt Rate 20 ml/min (>60); GFR (African American) 25 ML/MIN (>60); Glucose 294 mg/dl (74-100)
[2020-08-01 08:27] LABS: Anisocytosis 1+; Hypochromasia 1+; Lymphocytes % 14 % (10-50); Monocytes % 4 % (2-9); Neutrophils % 82 % (42-76); Platelet Estimate Slight Decrease; Total Cells Counted 100
--- NOTE | 2020-08-01 10:37 | PC.NURSE ---
Clarified with Ten HATFIELD that he and physician were aware of the total protein of 106.0 that was resulted from the CSF. Torin Sosa RN called and notified Ten HATFIELD at 1251 on 07/31, Julien stated that he notified Dr Diop, but no further orders were given to either. Dr Escudero to speak with Dr Dodson about results as well.
--- NOTE | 2020-08-01 10:46 | HMH.ACPN2 ---
Internal Medicine - PN: Subj *Date: 08/01/20 *Time: 12:34 Interval history: 80-year-old female patient sitting up in bed arouses to verbal stimuli. CSF culture showing no growth as of now, Gram stain negative. Answers Yes/No questions. Family at bedside. Exam Vital signs and Labs for Last 24 Hours: Temp Pulse Resp BP Pulse Ox 99.2 F 90 18 137/60 92 L 08/01/20 07:44 08/01/20 08:00 08/01/20 07:44 08/01/20 07:44 08/01/20 07:44 Laboratory Results - last 24 hr 07/31/20 09:24: Procalcitonin 2.34 H 07/31/20 11:36: CSF Volume 11, CSF Appearance Clear, CSF WBC 8 H, CSF RBC 43, CSF Mononuclear WBCs % 100, CSF Polynuclear WBCs % 0 07/31/20 11:36: CSF Glucose 148 H, CSF Total Protein 106.0 H* 07/31/20 12:07: POC Glucose 303 H* 07/31/20 15:40: POC Glucose 299 H 07/31/20 20:11: POC Glucose 340 H* 08/01/20 05:34: POC Glucose 307 H* 08/01/20 06:48: WBC 9.2, RBC 2.74 L, Hgb 8.8 L, Hct 29.7 L, MCV 108.6 H, MCH 32.3 H, MCHC 29.7 L, RDW 17.3, Plt Count 83 L, MPV 10.0, Neut % (Auto) 85.9 H, Lymph % (Auto) 7.9 L, [place] % (Auto) 5.8, Eos % (Auto) 0.2, Baso % (Auto) 0.1, Neut # (Auto) 7.9 H, Lymph # (Auto) 0.7, [place] # (Auto) 0.5, Eos # (Auto) 0.0, Baso # (Auto) 0.0, Total Counted 100, Neutrophils % (Manual) 82 H, Lymphocytes % (Manual) 14, Monocytes % (Manual) 4, Platelet Estimate Slight decrease, Hypochromasia 1+, Anisocytosis 1+ 08/01/20 06:48: Sodium 145, Potassium 4.3, Chloride 111 H, Carbon Dioxide 24, Anion Gap 14.3, BUN 67 H D, Creatinine 2.30 H D, Estimated Creat Clear 28, Estimated GFR 20 L, Est GFR ( Amer) 25 L D, Glucose 294 H, Calcium 9.7 I & O for Last 24 hours: Intake & Output 07/29/20 07/30/20 07/31/20 08/01/20 23:59 23:59 23:59 23:59 Intake Total 704 / 1054 530 / 530 1235 / 1235 Output Total 700 / 700 825 / 825 600 / 600 Balance 4 / 354 -295 / -295 635 / 635 Weight 209 lb 206 lb 9.6 oz 207 lb Microbiology Reports for the Last 24 Hours: Microbiology 07/30/20 21:38 Sputum - Expectorated Sputum Gram Stain - Final 07/30/20 21:38 Sputum - Expectorated Sputum Sputum Culture - Preliminary 07/29/20 21:13 Blood Blood Culture - Preliminary NO GROWTH AFTER 48 HOURS 07/29/20 21:13 Blood Blood Culture - Preliminary NO GROWTH AFTER 48 HOURS 07/31/20 11:37 Cerebral Spinal Fluid Gram Stain - Final 07/29/20 10:04 Urine,Catheterized Urine Culture - Final NO GROWTH AFTER 48 HOURS - Constitutional no acute distress, chronically ill appearing - *Routine HEENT Exam Head: Present: normocephalic ENT: Present: mucous membranes dry - *Routine Neck Exam Present: trachea midline. Absent: tracheal deviation - *Routine Respiratory Exam Present: rhonchi - *Routine Cardiovascular Exam Present: RRR - *Routine Abdominal Exam Present: soft, normoactive bowel sounds. Absent: firm, rigid - *Routine Extremities Exam Present: edema, pulses intact, ESTUARDO stockings. Absent: normal capillary refill - *Routine Skin Exam Present: wounds Comments: Nely RLE C/D/I Nely Coccyx C/D/I - *Routine Neurological Exam Present: alert, altered mental status - Routine Psychiatric Exam Present: unable to assess Assessment and Plan (1) Physical deconditioning Status: Chronic Category: Medical Code(s): R53.81 - Other malaise (2) Weakness Status: Chronic Category: Medical Code(s): R53.1 - Weakness (3) Chronic renal disease Status: Chronic Qualifiers: Chronic kidney disease stage: stage 4 (severe) Qualified Code(s): N18.4 - Chronic kidney disease, stage 4 (severe) Category: Medical Code(s): N18.9 - Chronic kidney disease, unspecified (4) Type 2 diabetes mellitus Status: Chronic Qualifiers: Diabetes mellitus intermediate insulin use: unspecified intermediate insulin use status Diabetes mellitus complication status: with neurologic complications Diabetes mellitus complication de
--- NOTE | 2020-08-01 11:01 | HMH.PULMPN ---
Internal Medicine - PN: Subj *Date: 08/01/20 *Time: 11:01 Interval history: Patient respiratory status improved, on room air this morning saturating 95% and above. Mentation improved appears awake but still obtunded, opening eyes to verbal stimulus Exam - Constitutional Constitutional:: lethargic - HENMT Exam HENMT: normocephalic, atraumatic - Respiratory Exam Comments: Bilateral diffuse coarse breath sounds - Cardiovascular Exam Cardiac:: S1, S2 - GI Exam GI:: soft, no hepatosplenomegaly - Skin Exam Skin: warm - Neurological Exam Patient appear lethargic opening eyes to verbal stimuli - Extremities Exam Extremities: no cyanosis, no clubbing Assessment and Plan (1) Physical deconditioning Status: Chronic Category: Medical Code(s): R53.81 - Other malaise (2) Weakness Status: Chronic Category: Medical Code(s): R53.1 - Weakness (3) Chronic renal disease Status: Chronic Qualifiers: Chronic kidney disease stage: stage 4 (severe) Qualified Code(s): N18.4 - Chronic kidney disease, stage 4 (severe) Category: Medical Code(s): N18.9 - Chronic kidney disease, unspecified (4) Type 2 diabetes mellitus Status: Chronic Qualifiers: Diabetes mellitus regional intermodal truck driver insulin use: unspecified residential insulin use status Diabetes mellitus complication status: with neurologic complications Diabetes mellitus complication detail: with unspecified neuropathy Qualified Code(s): E11.40 - Type 2 diabetes mellitus with diabetic neuropathy, unspecified Category: Medical Code(s): E11.9 - Type 2 diabetes mellitus without complications (5) Diabetes mellitus with neuropathy Status: Chronic Category: Medical Code(s): E11.40 - Type 2 diabetes mellitus with diabetic neuropathy, unspecified (6) Coronary artery disease Status: Chronic Category: Medical Code(s): I25.10 - Atherosclerotic heart disease of [place] coronary artery without angina pectoris (7) Congestive heart failure Status: Chronic Category: Medical Code(s): I50.9 - Heart failure, unspecified (8) Erosive osteoarthritis Status: Acute Category: Medical Code(s): M15.4 - Erosive (osteo)arthritis (9) Anxiety Status: Chronic Category: Medical Code(s): F41.9 - Anxiety disorder, unspecified (10) Essential hypertension Status: Chronic Category: Medical Code(s): I10 - Essential (primary) hypertension (11) Ecchymosis Status: Acute Category: Medical Code(s): R58 - Hemorrhage, not elsewhere classified (12) Prerenal azotemia Status: Acute Category: Medical Code(s): R79.89 - Other specified abnormal findings of blood chemistry (13) Sepsis with organ dysfunction Status: Acute Category: Medical Code(s): A41.9 - Sepsis, unspecified organism; R65.20 - Severe sepsis without septic shock - Assessment and plan all Dx Assessment and Plan for all problems:: #Pneumonia: #Acute hypoxic respiratory failure: Ms. Crawford is a 80-year-old female with multiple comorbidities presented to the hospital with worsening respiratory failure and altered mentation. CT head on admission did not show any acute hemorrhage. Serum Ammonia and TSH are within normal limits. Patient pneumonia improved on her chest x-ray compared to prior. Interval update: Hemodynamically stable. LP performed yesterday high protein , 8 WBC mononuclear predominant concerning for viral meningitis. On RA this morning Patient mentation slightly improved, arousable to verbal commands this morning. Respiratory viral panel negative LP performed opening pressure could not be obtained, 8 WBC mononuclear predominant with high protein concerning for viral meningitis, discussed with Dr. Dodson in person regarding the possibility of viral meningitis and the need for acyclovir Plan: - Continue cefepime for possible meningitis along with possible hospital-acquired pneumonia - Follow with final sputum cultures - Rest of the work-up for her alt
[2020-08-01 11:44] LABS: POC Glucose,Bedside 355 (70-110)
--- NOTE | 2020-08-01 16:29 | DIET.NUTRFU ---
Pt with slight improvement mentation, PO intakes remain 0-25%. Supplements TID on diet order. Family remains at bedside, attempting to cue/encourage pt at meal times. BG high with increase in past 2 days- ~300.
[2020-08-01 17:13] LABS: POC Glucose,Bedside 233 (70-110)
--- NOTE | 2020-08-01 18:17 | PC.NURSE ---
Addendum entered by Clara Chandler RN 08/01/20 18:45: approx 900 mls of urine out this shift Original Note: According to son patient is not quite as alert today as she was yesterday. She has answered yes and no to questions today but that is all. She ate 25% of breakfast and refused all meals after that. She occasionally moans, when asked if she is in pain she denies it. Oral care provided as pt would allow. Dressing noted to left upper arm, rt arm, rt knee, coccyx and open area to rle. Area is approx nickel/quarter size and dry (pics already on chart). Bruising noted to left ankle and generalized edema noted. [place] to bedside draining clear yellow urine. Approx 300 mls out. Coarse breath sounds noted, she remains on RA w/O2 sats in 90's. Family at bedside. Will continue to monitor.
--- NOTE | 2020-08-01 19:07 | PC.NURSE ---
report given to amy
[2020-08-01 20:19] LABS: POC Glucose,Bedside 195 (70-110)
[2020-08-02] VITALS (11 sets, daily range): BP systolic 128–154; BP diastolic 50–70; PULSE 74–100; RESP 15–18; TEMP 37.4–38.3; O2SAT 91–98; BMI 30.5
--- NOTE | 2020-08-02 05:46 | PC.NURSE ---
shift summary, pt has made noises all night, but cannot respond to any orientation questions, will open eyes to name being called, systolic BP 137-154, HR 90-100, monitoring specialist shows SR with first degree AV block, lungs have coarse crackles, remains on room air with O2 sats 93%, temps have been 99.9-100.3, family remains at bedside
[2020-08-02 06:09] LABS: POC Glucose,Bedside 244 (70-110)
[2020-08-02 06:53] LABS: Basophils % 0.3 % (0.1-2.0); Eosinophils % 0.3 % (0.1-12.0); Hematocrit 29.6 % (37.0-47.0); Hemoglobin 8.6 g/dL (12.2-16.2); Lymphocytes # 0.7 K/mm3 (0.7-4.5); Lymphocytes % 8.7 % (10-50); Mean Corpuscular HGB Conc 29.2 g/dL (31.8-35.4); Mean Corpuscular Hemoglobin 32.1 pg (27.0-31.2); Mean Corpuscular Volume 110.1 fl (81-99); Mean Platelet Volume 9.1 fl (7.4-10.4); Monocytes # 0.5 K/mm3 (0.1-1.0); Monocytes % 6.6 % (1.7-9.3); Neutrophils # 6.5 K/mm3 (1.8-7.8); Neutrophils % 84.1 % (37.0-80.0); Platelet Count 95 K/mm3 (142-424); Red Blood Count 2.69 M/mm3 (4.20-5.40); Red Cell Distribution Width 17.2 % (11.5-17.5); White Blood Count 7.8 K/mm3 (4.8-10.8)
[2020-08-02 07:01] LABS: Chloride 117 mmol/L (98-107)
[2020-08-02 07:02] LABS: Potassium 3.8 mmoL/L (3.5-5.1); Sodium 149 mmol/L (136-145)
[2020-08-02 07:04] LABS: Blood Urea Nitrogen 57 mg/dl (7-17); Creatinine Clearance Estimated 33 mL/min (50-200); Estimated Glomerular Filt Rate 24 ml/min (>60); GFR (African American) 29 ML/MIN (>60)
[2020-08-02 07:05] LABS: Anion Gap 14.8 mEq/L (5-15); Calcium 9.3 mg/dl (8.4-10.2); Carbon Dioxide 21 mmol/L (22.0-30.0); Glucose 249 mg/dl (74-100)
--- NOTE | 2020-08-02 08:30 | HMH.ACPN ---
Internal Medicine - PN: Subj *Date: 08/02/20 *Time: 08:30 Exam Vital signs and Labs for Last 24 Hours: Temp Pulse Resp BP Pulse Ox 100.3 F H 89 17 151/68 H 93 L 08/02/20 04:00 08/02/20 06:34 08/02/20 04:00 08/02/20 04:00 08/02/20 04:00 Laboratory Results - last 24 hr 08/01/20 11:36: POC Glucose 355 H* 08/01/20 16:54: POC Glucose 233 H 08/01/20 20:12: POC Glucose 195 H 08/02/20 05:18: POC Glucose 244 H 08/02/20 06:16: WBC 7.8, RBC 2.69 L, Hgb 8.6 L, Hct 29.6 L, MCV 110.1 H, MCH 32.1 H, MCHC 29.2 L, RDW 17.2, Plt Count 95 L, MPV 9.1, Neut % (Auto) 84.1 H, Lymph % (Auto) 8.7 L, [place] % (Auto) 6.6, Eos % (Auto) 0.3, Baso % (Auto) 0.3, Neut # (Auto) 6.5, Lymph # (Auto) 0.7, [place] # (Auto) 0.5, Eos # (Auto) 0.0, Baso # (Auto) 0.0 08/02/20 06:16: Sodium 149 H, Potassium 3.8, Chloride 117 H, Carbon Dioxide 21 L, Anion Gap 14.8, BUN 57 H, Creatinine 2.00 H, Estimated Creat Clear 33, Estimated GFR 24 L, Est GFR ( Amer) 29 L, Glucose 249 H, Calcium 9.3 I & O for Last 24 hours: Intake & Output 07/30/20 07/31/20 08/01/20 08/02/20 23:59 23:59 23:59 23:59 Intake Total 704 / 1054 530 / 530 2020 350 / 350 Output Total 700 / 700 825 / 825 1500 / 1500 580 / 580 Balance 4 / 354 -295 / -295 521 / 521 -230 / -230 Weight 94.801 kg 93.712 kg 93.894 kg 93.638 kg Microbiology Reports for the Last 24 Hours: Microbiology 07/30/20 21:38 Sputum - Expectorated Sputum Gram Stain - Final 07/30/20 21:38 Sputum - Expectorated Sputum Sputum Culture - Preliminary Gram Negative Rods Gram Negative Rods#2 07/31/20 11:37 Cerebral Spinal Fluid Gram Stain - Final 07/31/20 11:37 Cerebral Spinal Fluid CSF Culture - Preliminary NO GROWTH AFTER 24 HOURS Assessment and Plan (1) Physical deconditioning Status: Chronic Category: Medical Code(s): R53.81 - Other malaise (2) Weakness Status: Chronic Category: Medical Code(s): R53.1 - Weakness (3) Chronic renal disease Status: Chronic Qualifiers: Chronic kidney disease stage: stage 4 (severe) Qualified Code(s): N18.4 - Chronic kidney disease, stage 4 (severe) Category: Medical Code(s): N18.9 - Chronic kidney disease, unspecified (4) Type 2 diabetes mellitus Status: Chronic Qualifiers: Diabetes mellitus mcc insulin use: unspecified mcc insulin use status Diabetes mellitus complication status: with neurologic complications Diabetes mellitus complication detail: with unspecified neuropathy Qualified Code(s): E11.40 - Type 2 diabetes mellitus with diabetic neuropathy, unspecified Category: Medical Code(s): E11.9 - Type 2 diabetes mellitus without complications (5) Diabetes mellitus with neuropathy Status: Chronic Category: Medical Code(s): E11.40 - Type 2 diabetes mellitus with diabetic neuropathy, unspecified (6) Coronary artery disease Status: Chronic Category: Medical Code(s): I25.10 - Atherosclerotic heart disease of [place] coronary artery without angina pectoris (7) Congestive heart failure Status: Chronic Category: Medical Code(s): I50.9 - Heart failure, unspecified (8) Erosive osteoarthritis Status: Acute Category: Medical Code(s): M15.4 - Erosive (osteo)arthritis (9) Anxiety Status: Chronic Category: Medical Code(s): F41.9 - Anxiety disorder, unspecified (10) Essential hypertension Status: Chronic Category: Medical Code(s): I10 - Essential (primary) hypertension (11) Ecchymosis Status: Acute Category: Medical Code(s): R58 - Hemorrhage, not elsewhere classified (12) Prerenal azotemia Status: Acute Category: Medical Code(s): R79.89 - Other specified abnormal findings of blood chemistry (13) Sepsis with organ dysfunction Status: Acute Category: Medical Code(s): A41.9 - Sepsis, unspecified organism; R65.20 - Severe sepsis without septic shock [facility]
--- NOTE | 2020-08-02 08:53 | HMH.PULMPN ---
Internal Medicine - PN: Subj *Date: 08/02/20 *Time: 10:53 Interval history: No acute respiratory events overnight. Patient remained on room air. Exam - Constitutional Constitutional:: lethargic - HENMT Exam HENMT: normocephalic, atraumatic - Neck Exam Neck:: normal visual inspection, thyroid normal, no lymphadenopathy - Respiratory Exam Respiratory:: no respiratory distress Comments: Bilateral coarse breath sounds - Cardiovascular Exam Cardiac:: regular rhythm, S1, S2 - GI Exam GI:: soft, no hepatosplenomegaly - Skin Exam Skin: warm, no rash - Neurological Exam Patient lethargic only opening eyes to verbal stimuli - Extremities Exam Extremities: no cyanosis, no clubbing Assessment and Plan (1) Physical deconditioning Status: Chronic Category: Medical Code(s): R53.81 - Other malaise (2) Weakness Status: Chronic Category: Medical Code(s): R53.1 - Weakness (3) Chronic renal disease Status: Chronic Qualifiers: Chronic kidney disease stage: stage 4 (severe) Qualified Code(s): N18.4 - Chronic kidney disease, stage 4 (severe) Category: Medical Code(s): N18.9 - Chronic kidney disease, unspecified (4) Type 2 diabetes mellitus Status: Chronic Qualifiers: Diabetes mellitus alf insulin use: unspecified alf insulin use status Diabetes mellitus complication status: with neurologic complications Diabetes mellitus complication detail: with unspecified neuropathy Qualified Code(s): E11.40 - Type 2 diabetes mellitus with diabetic neuropathy, unspecified Category: Medical Code(s): E11.9 - Type 2 diabetes mellitus without complications (5) Diabetes mellitus with neuropathy Status: Chronic Category: Medical Code(s): E11.40 - Type 2 diabetes mellitus with diabetic neuropathy, unspecified (6) Coronary artery disease Status: Chronic Category: Medical Code(s): I25.10 - Atherosclerotic heart disease of [place] coronary artery without angina pectoris (7) Congestive heart failure Status: Chronic Category: Medical Code(s): I50.9 - Heart failure, unspecified (8) Erosive osteoarthritis Status: Acute Category: Medical Code(s): M15.4 - Erosive (osteo)arthritis (9) Anxiety Status: Chronic Category: Medical Code(s): F41.9 - Anxiety disorder, unspecified (10) Essential hypertension Status: Chronic Category: Medical Code(s): I10 - Essential (primary) hypertension (11) Ecchymosis Status: Acute Category: Medical Code(s): R58 - Hemorrhage, not elsewhere classified (12) Prerenal azotemia Status: Acute Category: Medical Code(s): R79.89 - Other specified abnormal findings of blood chemistry (13) Sepsis with organ dysfunction Status: Acute Category: Medical Code(s): A41.9 - Sepsis, unspecified organism; R65.20 - Severe sepsis without septic shock - Assessment and plan all Dx Assessment and Plan for all problems:: #Pneumonia: #Acute hypoxic respiratory failure: Ms. Crawford is a 80-year-old female with multiple comorbidities presented to the hospital with worsening respiratory failure and altered mentation. CT head on admission did not show any acute hemorrhage. Serum Ammonia and TSH are within normal limits. Patient pneumonia improved on her chest x-ray compared to prior. As patient's pneumonia did not explain her altered mentation LP was performed which showed a WBC lymphocytic predominant patient was started on acyclovir Interval Update: Patient initial sputum staining showed gram-positive cocci however the final cultures showing gram-negative rods -we will continue cefepime for total of 7 days Patient mentation slightly improved but still lethargic only following verbal commands Auscultation bilateral coarse breath sounds, respiratory status stable remained on room air saturating 96% today Renal function improved from yesterday Plan: - Continue cefepime for hospital-acquired pneumonia x 7days - Follow with fi
[2020-08-02 11:48] LABS: POC Glucose,Bedside 255 (70-110)
--- NOTE | 2020-08-02 14:01 | HMH.ACPN2 ---
Internal Medicine - PN: Subj *Date: 08/02/20 *Time: 08:45 Interval history: pt repeating not bill, not bill over and over. son at bedside Exam Vital signs and Labs for Last 24 Hours: Temp Pulse Resp BP Pulse Ox 99.9 F H 92 H 18 138/62 98 08/02/20 12:00 08/02/20 12:00 08/02/20 12:00 08/02/20 12:00 08/02/20 12:00 Laboratory Results - last 24 hr 08/01/20 16:54: POC Glucose 233 H 08/01/20 20:12: POC Glucose 195 H 08/02/20 05:18: POC Glucose 244 H 08/02/20 06:16: WBC 7.8, RBC 2.69 L, Hgb 8.6 L, Hct 29.6 L, MCV 110.1 H, MCH 32.1 H, MCHC 29.2 L, RDW 17.2, Plt Count 95 L, MPV 9.1, Neut % (Auto) 84.1 H, Lymph % (Auto) 8.7 L, [place] % (Auto) 6.6, Eos % (Auto) 0.3, Baso % (Auto) 0.3, Neut # (Auto) 6.5, Lymph # (Auto) 0.7, [place] # (Auto) 0.5, Eos # (Auto) 0.0, Baso # (Auto) 0.0 08/02/20 06:16: Sodium 149 H, Potassium 3.8, Chloride 117 H, Carbon Dioxide 21 L, Anion Gap 14.8, BUN 57 H, Creatinine 2.00 H, Estimated Creat Clear 33, Estimated GFR 24 L, Est GFR ( Amer) 29 L, Glucose 249 H, Calcium 9.3 08/02/20 11:23: POC Glucose 255 H I & O for Last 24 hours: Intake & Output 07/31/20 08/01/20 08/02/20 08/03/20 11:59 11:59 11:59 11:59 Intake Total 824 / 824 1295 / 1295 1136 / 1136 Output Total 575 / 575 1200 / 1200 1480 / 1480 Balance 249 / 249 95 / 95 -344 / -344 Weight 206 lb 9.6 oz 207 lb 206 lb 6.997 oz Microbiology Reports for the Last 24 Hours: Microbiology 07/31/20 11:37 Cerebral Spinal Fluid Gram Stain - Final 07/31/20 11:37 Cerebral Spinal Fluid CSF Culture - Preliminary NO GROWTH AFTER 48 HOURS 07/30/20 21:38 Sputum - Expectorated Sputum Gram Stain - Final 07/30/20 21:38 Sputum - Expectorated Sputum Sputum Culture - Preliminary Gram Negative Rods Gram Negative Rods#2 - Constitutional no acute distress, somnolent - *Routine HEENT Exam Head: Present: normocephalic Eye: Present: PERRL ENT: Present: mucous membranes moist - *Routine Neck Exam Present: supple. Absent: lymphadenopathy - *Routine Respiratory Exam Present: rhonchi - *Routine Cardiovascular Exam Present: RRR - *Routine Abdominal Exam Present: soft, normoactive bowel sounds. Absent: tenderness - *Routine Extremities Exam Absent: cyanosis, clubbing, edema - *Routine Skin Exam Present: warm, wounds. Absent: rash Comments: stage 1 to coccyx - *Routine Neurological Exam Present: alert - Routine Psychiatric Exam Present: normal affect Assessment and Plan (1) Physical deconditioning Status: Chronic Category: Medical Code(s): R53.81 - Other malaise (2) Weakness Status: Chronic Category: Medical Code(s): R53.1 - Weakness (3) Chronic renal disease Status: Chronic Qualifiers: Chronic kidney disease stage: stage 4 (severe) Qualified Code(s): N18.4 - Chronic kidney disease, stage 4 (severe) Category: Medical Code(s): N18.9 - Chronic kidney disease, unspecified (4) Type 2 diabetes mellitus Status: Chronic Qualifiers: Diabetes mellitus intermission coordinator insulin use: unspecified intermission coordinator insulin use status Diabetes mellitus complication status: with neurologic complications Diabetes mellitus complication detail: with unspecified neuropathy Qualified Code(s): E11.40 - Type 2 diabetes mellitus with diabetic neuropathy, unspecified Category: Medical Code(s): E11.9 - Type 2 diabetes mellitus without complications (5) Diabetes mellitus with neuropathy Status: Chronic Category: Medical Code(s): E11.40 - Type 2 diabetes mellitus with diabetic neuropathy, unspecified (6) Coronary artery disease Status: Chronic Category: Medical Code(s): I25.10 - Atherosclerotic heart disease of [place] coronary artery without angina pectoris (7) Congestive heart failure Status: Chronic Category: Medical Code(s): I50.9 - Heart failure, unspecified (8) Erosive osteoarthr
--- NOTE | 2020-08-02 20:00 | PC.NURSE ---
Pt has spoke nonsensical words this shift. CB in reach and family at bedside. Did change dsg to coccyx and keep pt off coccyx this shift, as she does have a dark area on coccyx with surrounding dark areas. Pt isn't eating well or taking in po intake. Dsg to R leg and L arm changed as well. CB in reach. [place] in place and draining yellow urine with adequate u/p. Report given.
[2020-08-02 22:24] LABS: POC Glucose,Bedside 201 (70-110)
--- NOTE | 2020-08-02 22:24 | PC.NURSE ---
2100 COURTESY ROUND PT ASLEEP WITH DAUGHTER AT BEDSIDE. TRASH EMPTIED.
[2020-08-02 23:55] LABS: POC Glucose,Bedside 235 (70-110)
[2020-08-03] VITALS: BP 147/70; PULSE 75; RESP 18; TEMP 36.7; O2SAT 96
[2020-08-03 04:00] VITALS: BP 158/72; PULSE 76; PULSE 80; RESP 14; TEMP 36.7; O2SAT 95
[2020-08-03 05:00] VITALS: BMI 30.4
--- NOTE | 2020-08-03 06:00 | XR_ITS ---
PROCEDURE: XR CHEST PORTABLE CLINICAL HISTORY: pneumonia COMPARISON: CT CT CHEST WO CON from 12/01/2019 CR XR CHEST PORTABLE from 07/29/2020 CR XR CHEST PORTABLE from 07/29/2020 CR XR CHEST PORTABLE from 07/30/2020 FINDINGS: There is cardiomegaly. No change right lower lobe pneumonia. Slight worsening left lower lobe pneumonia with questionable developing pneumonia in the right upper lobe. Trace bilateral effusions are noted. IMPRESSION: Bilateral pneumonia which appears slightly worse in the right upper lobe and left lower lobe with trace bilateral effusions Dictated by: Andrae Khan MD 08/03/2020 06:13 Andrae Khan MD in [facility] 08/03/2020 06:13
[2020-08-03 06:04] LABS: Basophils % 0.6 % (0.1-2.0); Eosinophils % 0.8 % (0.1-12.0); Hematocrit 24.2 % (37.0-47.0); Lymphocytes # 0.5 K/mm3 (0.7-4.5); Lymphocytes % 12.2 % (10-50); Mean Corpuscular HGB Conc 29.9 g/dL (31.8-35.4); Mean Corpuscular Hemoglobin 32.8 pg (27.0-31.2); Mean Corpuscular Volume 109.5 fl (81-99); Monocytes # 0.4 K/mm3 (0.1-1.0); Monocytes % 9.8 % (1.7-9.3); Neutrophils # 3.4 K/mm3 (1.8-7.8); Neutrophils % 76.6 % (37.0-80.0); Platelet Count 64 K/mm3 (142-424); Red Blood Count 2.21 M/mm3 (4.20-5.40); Red Cell Distribution Width 17.7 % (11.5-17.5); White Blood Count 4.4 K/mm3 (4.8-10.8)
[2020-08-03 06:08] LABS: Hemoglobin 7.2 g/dL (12.2-16.2)
--- NOTE | 2020-08-03 06:28 | PC.NURSE ---
shift summary, no acute changes since prior assessment, pt has yelled and moan t/o shift, has denied pain when asked, remains on room air with O2 sats 95-97%, coarse crackles noted on auscultation, HR 75-77, systolic BP 147-158, addison patent and draining clear yellow urine
[2020-08-03 06:36] LABS: Blood Urea Nitrogen 55 mg/dl (7-17); Creatinine Clearance Estimated 38 mL/min (50-200); Estimated Glomerular Filt Rate 29 ml/min (>60); GFR (African American) 35 ML/MIN (>60)
[2020-08-03 06:37] LABS: Calcium 8.4 mg/dl (8.4-10.2); Carbon Dioxide 20 mmol/L (22.0-30.0); Glucose 201 mg/dl (74-100)
[2020-08-03 06:46] LABS: Chloride 126 mmol/L (98-107); Sodium 152 mmol/L (136-145)
[2020-08-03 06:48] LABS: POC Glucose,Bedside 188 (70-110)
[2020-08-03 06:55] VITALS: PULSE 80; PULSE 85; O2SAT 96
[2020-08-03 07:44] LABS: Chloride 124 mmol/L (98-107); Potassium 3.8 mmoL/L (3.5-5.1)
[2020-08-03 07:47] LABS: Anion Gap 13.8 mEq/L (5-15); Blood Urea Nitrogen 54 mg/dl (7-17); Carbon Dioxide 24 mmol/L (22.0-30.0); Creatinine Clearance Estimated 34 mL/min (50-200); Estimated Glomerular Filt Rate 25 ml/min (>60); GFR (African American) 31 ML/MIN (>60); Glucose 215 mg/dl (74-100)
[2020-08-03 07:56] LABS: Sodium 158 mmol/L (136-145)
[2020-08-03 08:00] VITALS: BP 150/73; PULSE 80; RESP 20; TEMP 36.5; O2SAT 100
[2020-08-03 08:28] LABS: Calcium 9.6 mg/dl (8.4-10.2)
--- NOTE | 2020-08-03 09:01 | HMH.ACPN2 ---
Internal Medicine - PN: Subj *Date: 08/03/20 *Time: 09:01 Interval history: no changes in pt, chest x ray worse. family at bedside. discussed with son and daughter her condition that is worsening. They are considering hospice and would like to talk to them. Exam Vital signs and Labs for Last 24 Hours: Temp Pulse Resp BP Pulse Ox 97.7 F 80 20 150/73 H 100 08/03/20 08:00 08/03/20 08:00 08/03/20 08:00 08/03/20 08:00 08/03/20 08:00 Laboratory Results - last 24 hr 08/02/20 11:23: POC Glucose 255 H 08/02/20 17:00: POC Glucose 235 H 08/02/20 21:08: POC Glucose 201 H 08/03/20 05:25: POC Glucose 188 H 08/03/20 05:45: WBC 4.4 L D, RBC 2.21 L, Hgb 7.2 L*, Hct 24.2 L, MCV 109.5 H, MCH 32.8 H, MCHC 29.9 L, RDW 17.7 H, Plt Count 64 L D, MPV 9.0, Neut % (Auto) 76.6, Lymph % (Auto) 12.2, [place] % (Auto) 9.8 H, Eos % (Auto) 0.8, Baso % (Auto) 0.6, Neut # (Auto) 3.4, Lymph # (Auto) 0.5 L, [place] # (Auto) 0.4, Eos # (Auto) 0.0, Baso # (Auto) 0.0 08/03/20 05:45: Sodium 152 H*, Potassium 4.0, Chloride 126 H, Carbon Dioxide 20 L, Anion Gap 10.0, BUN 55 H, Creatinine 1.70 H, Estimated Creat Clear 38, Estimated GFR 29 L, Est GFR ( Amer) 35 L D, Glucose 201 H, Calcium 8.4 08/03/20 07:30: Sodium 158 H*, Potassium 3.8, Chloride 124 H, Carbon Dioxide 24, Anion Gap 13.8, BUN 54 H, Creatinine 1.90 H, Estimated Creat Clear 34, Estimated GFR 25 L, Est GFR ( Amer) 31 L, Glucose 215 H, Calcium 9.6 D I & O for Last 24 hours: Intake & Output 07/31/20 08/01/20 08/02/20 08/03/20 11:59 11:59 11:59 11:59 Intake Total 824 / 824 1295 / 1295 1136 / 1136 2143 / 2143 Output Total 575 / 575 1200 / 1200 1480 / 1480 500 / 500 Balance 249 / 249 95 / 95 -344 / -344 1643 / 1643 Weight 206 lb 9.6 oz 207 lb 206 lb 6.997 oz 205 lb 7 oz Microbiology Reports for the Last 24 Hours: Microbiology 07/30/20 21:38 Sputum - Expectorated Sputum Gram Stain - Final 07/30/20 21:38 Sputum - Expectorated Sputum Sputum Culture - Preliminary Citrobacter freundii Klebsiella pneumoniae 07/31/20 11:37 Cerebral Spinal Fluid Gram Stain - Final 07/31/20 11:37 Cerebral Spinal Fluid CSF Culture - Preliminary NO GROWTH AFTER 48 HOURS - Constitutional no acute distress, somnolent - *Routine HEENT Exam Head: Present: normocephalic Eye: Present: PERRL ENT: Present: mucous membranes moist - *Routine Neck Exam Present: supple. Absent: lymphadenopathy - *Routine Respiratory Exam Present: rhonchi - *Routine Cardiovascular Exam Present: RRR - *Routine Abdominal Exam Present: soft, normoactive bowel sounds. Absent: tenderness - *Routine Extremities Exam Present: normal capillary refill. Absent: cyanosis, clubbing, edema - *Routine Skin Exam Present: warm, wounds. Absent: rash Comments: stage 1 on coccyx - *Routine Neurological Exam Present: alert opens eye when name spoken but no other response. - Routine Psychiatric Exam Present: unable to assess Assessment and Plan (1) Physical deconditioning Status: Chronic Category: Medical Code(s): R53.81 - Other malaise (2) Weakness Status: Chronic Category: Medical Code(s): R53.1 - Weakness (3) Chronic renal disease Status: Chronic Qualifiers: Chronic kidney disease stage: stage 4 (severe) Qualified Code(s): N18.4 - Chronic kidney disease, stage 4 (severe) Category: Medical Code(s): N18.9 - Chronic kidney disease, unspecified (4) Type 2 diabetes mellitus Status: Chronic Qualifiers: Diabetes mellitus correction insulin use: unspecified correction insulin use status Diabetes mellitus complication status: with neurologic complications Diabetes mellitus complication detail: with unspecified neuropathy Qualified Code(s): E11.40 - Type 2 diabetes mellitus with diabetic neuropathy, unspecified Category: Medical Code(s): E11.9 - Type 2 diabetes mellitus w
--- NOTE | 2020-08-03 09:51 | HMH.PULMPN ---
Internal Medicine - PN: Subj *Date: 08/03/20 *Time: 09:51 Interval history: No acute respiratory events overnight Exam - Constitutional Constitutional:: no acute distress, comfortable - HENMT Exam HENMT: normocephalic, atraumatic, cushingoid faces - Eye Exam Eyes:: normal appearance both eyes and related structures - Neck Exam Neck:: normal visual inspection, thyroid normal, no lymphadenopathy - Respiratory Exam Respiratory:: able to speak in complete sentences, no respiratory distress Comments: Coarse breath sounds right lower lobe - Cardiovascular Exam Cardiac:: regular rhythm, S1, S2 - GI Exam GI:: soft, no hepatosplenomegaly - Skin Exam Skin: warm, no rash, dry - Neurological Exam Neurological: alert, awake, normal cognition - Extremities Exam Extremities: no cyanosis, no clubbing Assessment and Plan (1) Physical deconditioning Status: Chronic Category: Medical Code(s): R53.81 - Other malaise (2) Weakness Status: Chronic Category: Medical Code(s): R53.1 - Weakness (3) Chronic renal disease Status: Chronic Qualifiers: Chronic kidney disease stage: stage 4 (severe) Qualified Code(s): N18.4 - Chronic kidney disease, stage 4 (severe) Category: Medical Code(s): N18.9 - Chronic kidney disease, unspecified (4) Type 2 diabetes mellitus Status: Chronic Qualifiers: Diabetes mellitus alf insulin use: unspecified terminal gauger supervisor insulin use status Diabetes mellitus complication status: with neurologic complications Diabetes mellitus complication detail: with unspecified neuropathy Qualified Code(s): E11.40 - Type 2 diabetes mellitus with diabetic neuropathy, unspecified Category: Medical Code(s): E11.9 - Type 2 diabetes mellitus without complications (5) Diabetes mellitus with neuropathy Status: Chronic Category: Medical Code(s): E11.40 - Type 2 diabetes mellitus with diabetic neuropathy, unspecified (6) Coronary artery disease Status: Chronic Category: Medical Code(s): I25.10 - Atherosclerotic heart disease of [place] coronary artery without angina pectoris (7) Congestive heart failure Status: Chronic Category: Medical Code(s): I50.9 - Heart failure, unspecified (8) Erosive osteoarthritis Status: Acute Category: Medical Code(s): M15.4 - Erosive (osteo)arthritis (9) Anxiety Status: Chronic Category: Medical Code(s): F41.9 - Anxiety disorder, unspecified (10) Essential hypertension Status: Chronic Category: Medical Code(s): I10 - Essential (primary) hypertension (11) Ecchymosis Status: Acute Category: Medical Code(s): R58 - Hemorrhage, not elsewhere classified (12) Prerenal azotemia Status: Acute Category: Medical Code(s): R79.89 - Other specified abnormal findings of blood chemistry (13) Sepsis with organ dysfunction Status: Acute Category: Medical Code(s): A41.9 - Sepsis, unspecified organism; R65.20 - Severe sepsis without septic shock - Assessment and plan all Dx Assessment and Plan for all problems:: #Community-acquired pneumonia: #COPD exacerbation: #Acute hypoxic respiratory failure: 68-year-old female significant smoking history diagnosis COPD on Dulera and albuterol inhaler presented with worsening fevers chills and productive phlegm and chest x-ray showed right lower lobe pulmonary infiltrate. ABG on admission showed metabolic acidosis. COVID-19 PCR negative. Patient was initiated on Treatment with ceftriaxone azithromycin along with prednisone for COPD exacerbation, patient respiratory status significantly improved Gram stain few gram-positive cocci in pairs. Patient still having persistent leukocytosis despite improvement on her respiratory status. Blood cultures no growth 48 hours. No urinalysis available. Plan: -De-escalate Abx to levofloxacin on discharge for a total duration of 5 days -Prednisone 40 mg for total of 5 days -Follow with final sputum cultures -Luiz
--- NOTE | 2020-08-03 09:58 | HMH.PULMPN ---
Internal Medicine - PN: Subj *Date: 08/03/20 *Time: 09:58 Interval history: No acute respiratory events overnight, patient remained on room air. No improvement in her mentation Exam - Constitutional Constitutional:: lethargic - HENMT Exam HENMT: normocephalic, atraumatic - Neck Exam Neck:: normal visual inspection, thyroid normal, no lymphadenopathy - Respiratory Exam Comments: Bilateral coarse breath sounds - Cardiovascular Exam Cardiac:: S1, S2 - GI Exam GI:: soft, no hepatosplenomegaly - Skin Exam Skin: warm, no rash - Neurological Exam Patient obtunded not responding appropriately to verbal commands. Mumbling - Extremities Exam Extremities: no cyanosis, no clubbing Assessment and Plan (1) Physical deconditioning Status: Chronic Category: Medical Code(s): R53.81 - Other malaise (2) Weakness Status: Chronic Category: Medical Code(s): R53.1 - Weakness (3) Chronic renal disease Status: Chronic Qualifiers: Chronic kidney disease stage: stage 4 (severe) Qualified Code(s): N18.4 - Chronic kidney disease, stage 4 (severe) Category: Medical Code(s): N18.9 - Chronic kidney disease, unspecified (4) Type 2 diabetes mellitus Status: Chronic Qualifiers: Diabetes mellitus ferry terminal agent insulin use: unspecified fpc insulin use status Diabetes mellitus complication status: with neurologic complications Diabetes mellitus complication detail: with unspecified neuropathy Qualified Code(s): E11.40 - Type 2 diabetes mellitus with diabetic neuropathy, unspecified Category: Medical Code(s): E11.9 - Type 2 diabetes mellitus without complications (5) Diabetes mellitus with neuropathy Status: Chronic Category: Medical Code(s): E11.40 - Type 2 diabetes mellitus with diabetic neuropathy, unspecified (6) Coronary artery disease Status: Chronic Category: Medical Code(s): I25.10 - Atherosclerotic heart disease of [place] coronary artery without angina pectoris (7) Congestive heart failure Status: Chronic Category: Medical Code(s): I50.9 - Heart failure, unspecified (8) Erosive osteoarthritis Status: Acute Category: Medical Code(s): M15.4 - Erosive (osteo)arthritis (9) Anxiety Status: Chronic Category: Medical Code(s): F41.9 - Anxiety disorder, unspecified (10) Essential hypertension Status: Chronic Category: Medical Code(s): I10 - Essential (primary) hypertension (11) Ecchymosis Status: Acute Category: Medical Code(s): R58 - Hemorrhage, not elsewhere classified (12) Prerenal azotemia Status: Acute Category: Medical Code(s): R79.89 - Other specified abnormal findings of blood chemistry (13) Sepsis with organ dysfunction Status: Acute Category: Medical Code(s): A41.9 - Sepsis, unspecified organism; R65.20 - Severe sepsis without septic shock - Assessment and plan all Dx Assessment and Plan for all problems:: #Pneumonia: #Acute hypoxic respiratory failure: Ms. Crawford is a 80-year-old female with multiple comorbidities presented to the hospital with worsening respiratory failure and altered mentation. CT head on admission did not show any acute hemorrhage. Serum Ammonia and TSH are within normal limits. LP was performed which showed a WBC lymphocytic predominant patient was started on acyclovir Interval Update: Respiratory status improved and stable, remained in room air. Final sputum cultures grew Klebsiella and Citrobacter both sensitive to cefepime. Repeat chest x-ray showed bilateral worsening lower lobe pulmonary infiltrates, concerning for aspiration given her altered mentation. Hemoglobin dropped to 7.2 No change in her mentation, today not even appropriately responding to verbal commands, only mumbling. Patient's family as per patient's wishes would like to pursue hospice care, primary team is facilitating this patient's family request Plan: - Follow with hospice recommendations as per patient's fa
[2020-08-03 10:40] LABS: Hematocrit 32.7 % (37.0-47.0)
[2020-08-03 10:45] LABS: Hemoglobin 10.1 g/dL (12.2-16.2)
--- NOTE | 2020-08-03 11:09 | HMH.ACPN ---
Internal Medicine - PN: Subj *Date: 08/03/20 *Time: 11:09 Exam Vital signs and Labs for Last 24 Hours: Temp Pulse Resp BP Pulse Ox 97.7 F 80 20 150/73 H 100 08/03/20 08:00 08/03/20 08:00 08/03/20 08:00 08/03/20 08:00 08/03/20 08:00 Laboratory Results - last 24 hr 08/02/20 11:23: POC Glucose 255 H 08/02/20 17:00: POC Glucose 235 H 08/02/20 21:08: POC Glucose 201 H 08/03/20 05:25: POC Glucose 188 H 08/03/20 05:45: WBC 4.4 L D, RBC 2.21 L, Hgb 7.2 L*, Hct 24.2 L, MCV 109.5 H, MCH 32.8 H, MCHC 29.9 L, RDW 17.7 H, Plt Count 64 L D, MPV 9.0, Neut % (Auto) 76.6, Lymph % (Auto) 12.2, [place] % (Auto) 9.8 H, Eos % (Auto) 0.8, Baso % (Auto) 0.6, Neut # (Auto) 3.4, Lymph # (Auto) 0.5 L, [place] # (Auto) 0.4, Eos # (Auto) 0.0, Baso # (Auto) 0.0 08/03/20 05:45: Sodium 152 H*, Potassium 4.0, Chloride 126 H, Carbon Dioxide 20 L, Anion Gap 10.0, BUN 55 H, Creatinine 1.70 H, Estimated Creat Clear 38, Estimated GFR 29 L, Est GFR ( Amer) 35 L D, Glucose 201 H, Calcium 8.4 08/03/20 07:30: Sodium 158 H*, Potassium 3.8, Chloride 124 H, Carbon Dioxide 24, Anion Gap 13.8, BUN 54 H, Creatinine 1.90 H, Estimated Creat Clear 34, Estimated GFR 25 L, Est GFR ( Amer) 31 L, Glucose 215 H, Calcium 9.6 D 08/03/20 10:22: Hgb 10.1 L D, Hct 32.7 L I & O for Last 24 hours: Intake & Output 07/31/20 08/01/20 08/02/2006/20 23:59 23:59 23:59 23:59 Intake Total 530 / 530 2020 1425 / 1425 1068 / 1068 Output Total 825 / 825 1500 / 1500 580 / 1080 500 / 500 Balance -295 / -295 521 / 521 845 / 345 568 / 568 Weight 93.712 kg 93.894 kg 93.638 kg 93.185 kg Microbiology Reports for the Last 24 Hours: Microbiology 07/30/20 21:38 Sputum - Expectorated Sputum Gram Stain - Final 07/30/20 21:38 Sputum - Expectorated Sputum Sputum Culture - Preliminary Citrobacter freundii Klebsiella pneumoniae 07/31/20 11:37 Cerebral Spinal Fluid Gram Stain - Final 07/31/20 11:37 Cerebral Spinal Fluid CSF Culture - Preliminary NO GROWTH AFTER 48 HOURS Assessment and Plan (1) Physical deconditioning Status: Chronic Category: Medical Code(s): R53.81 - Other malaise (2) Weakness Status: Chronic Category: Medical Code(s): R53.1 - Weakness (3) Chronic renal disease Status: Chronic Qualifiers: Chronic kidney disease stage: stage 4 (severe) Qualified Code(s): N18.4 - Chronic kidney disease, stage 4 (severe) Category: Medical Code(s): N18.9 - Chronic kidney disease, unspecified (4) Type 2 diabetes mellitus Status: Chronic Qualifiers: Diabetes mellitus longterm insulin use: unspecified longterm insulin use status Diabetes mellitus complication status: with neurologic complications Diabetes mellitus complication detail: with unspecified neuropathy Qualified Code(s): E11.40 - Type 2 diabetes mellitus with diabetic neuropathy, unspecified Category: Medical Code(s): E11.9 - Type 2 diabetes mellitus without complications (5) Diabetes mellitus with neuropathy Status: Chronic Category: Medical Code(s): E11.40 - Type 2 diabetes mellitus with diabetic neuropathy, unspecified (6) Coronary artery disease Status: Chronic Category: Medical Code(s): I25.10 - Atherosclerotic heart disease of [place] coronary artery without angina pectoris (7) Congestive heart failure Status: Chronic Category: Medical Code(s): I50.9 - Heart failure, unspecified (8) Erosive osteoarthritis Status: Acute Category: Medical Code(s): M15.4 - Erosive (osteo)arthritis (9) Anxiety Status: Chronic Category: Medical Code(s): F41.9 - Anxiety disorder, unspecified (10) Essential hypertension Status: Chronic Category: Medical Code(s): I10 - Essential (primary) hypertension (11) Ecchymosis Status: Acute Category: Medical Code(s): R58 - Hemorrhage, not elsewhere classified (12) Prerenal azote
[2020-08-03 11:30] LABS: POC Glucose,Bedside 201 (70-110)
[2020-08-03 12:00] VITALS: BP 125/66; PULSE 80; PULSE 90; RESP 16; TEMP 36.8; O2SAT 96
--- NOTE | 2020-08-03 14:16 | PC.NURSE ---
Addendum entered by Clara Chandler RN 08/03/20 17:27: [facility] may be reached at [phone] up until 1700; after that the 24 hr hospice number should be used Original Note: Pt is now hospice. DNR is signed and on the chart. I spoke with the hospice nurse ([facility]) who said to dc all current mar orders except they tylenol and also gave me the following orders: 0.125mg levsin q4hrs prn SL, dilaudid 0.2mg q8hrs IV scheduled, dilaudid 0.2mg IV q2hrs prn for pain, soa or R>26, ativan 0.25mg IV q8hrs scheduled, ativan 0.5mg IV q2hrs prn for anxiety/agitation. All orders per Dr Roberson but are to be put in under Dr Dodson. I called Dr Hinton office to verify this. Orders faxed to pharmacy.
--- NOTE | 2020-08-03 18:17 | PC.NURSE ---
since obtaining care of patient and administering medications she has been noted to be resting well. family reports she has only woken a little bit but no moaning at this time. she appears comfortable. instructed family to let us know if they would like patient turned, and any other care as needed. offered [id number]. will continue to monitor.
[2020-08-03 20:00] VITALS: BP 125/65; PULSE 82; RESP 22; TEMP 36.7; O2SAT 94
--- NOTE | 2020-08-04 03:30 | PC.NURSE ---
Ativan and dilaudid given once per and also as scheduled in NOV. family reports she has woken up at times to her name but no moaning. pt appears comfortable. offered Q2 turning but family has refused for pt to be turned this. instructed family to notified us if they would like pt to be turned
[2020-08-04 05:00] VITALS: BMI 29.7
[2020-08-04 07:53] LABS: Basophils % 0.3 % (0.1-2.0); Eosinophils % 0.4 % (0.1-12.0); Hematocrit 31.4 % (37.0-47.0); Hemoglobin 9.6 g/dL (12.2-16.2); Lymphocytes # 0.7 K/mm3 (0.7-4.5); Lymphocytes % 11.6 % (10-50); Mean Corpuscular HGB Conc 30.6 g/dL (31.8-35.4); Mean Corpuscular Volume 107.9 fl (81-99); Monocytes # 0.4 K/mm3 (0.1-1.0); Monocytes % 7.4 % (1.7-9.3); Neutrophils # 4.7 K/mm3 (1.8-7.8); Neutrophils % 80.3 % (37.0-80.0); Platelet Count 108 K/mm3 (142-424); Red Blood Count 2.91 M/mm3 (4.20-5.40); Red Cell Distribution Width 17.3 % (11.5-17.5); White Blood Count 5.8 K/mm3 (4.8-10.8)
[2020-08-04 08:00] VITALS: BP 124/51; PULSE 72; RESP 16; TEMP 36.7; O2SAT 90
[2020-08-04 08:06] LABS: Potassium 3.7 mmoL/L (3.5-5.1)
[2020-08-04 08:09] LABS: Anion Gap 10.7 mEq/L (5-15); Blood Urea Nitrogen 51 mg/dl (7-17); Carbon Dioxide 24 mmol/L (22.0-30.0); Creatinine Clearance Estimated 37 mL/min (50-200); Estimated Glomerular Filt Rate 29 ml/min (>60); GFR (African American) 35 ML/MIN (>60)
[2020-08-04 08:10] LABS: Calcium 9.5 mg/dl (8.4-10.2); Glucose 217 mg/dl (74-100)
[2020-08-04 08:21] LABS: Sodium 159 mmol/L (136-145)
[2020-08-04 08:22] LABS: Chloride 128 mmol/L (98-107)
--- NOTE | 2020-08-04 08:35 | HMH.ACPN2 ---
Internal Medicine - PN: Subj *Date: 08/04/20 *Time: 08:51 Interval history: pt is hospice pt at this time - comfort care Exam Vital signs and Labs for Last 24 Hours: Temp Pulse Resp BP Pulse Ox 98.0 F 72 16 124/51 L 90 L 08/04/20 08:00 08/04/20 08:00 08/04/20 08:00 08/04/20 08:00 08/04/20 08:00 Laboratory Results - last 24 hr 08/03/20 10:22: Hgb 10.1 L D, Hct 32.7 L 08/03/20 11:22: POC Glucose 201 H 08/04/20 07:41: WBC 5.8 D, RBC 2.91 L D, Hgb 9.6 L, Hct 31.4 L, MCV 107.9 H, MCH 33.0 H, MCHC 30.6 L, RDW 17.3, Plt Count 108 L D, MPV 10.0, Neut % (Auto) 80.3 H, Lymph % (Auto) 11.6, [place] % (Auto) 7.4, Eos % (Auto) 0.4, Baso % (Auto) 0.3, Neut # (Auto) 4.7, Lymph # (Auto) 0.7, [place] # (Auto) 0.4, Eos # (Auto) 0.0, Baso # (Auto) 0.0 08/04/20 07:41: Sodium 159 H*, Potassium 3.7, Chloride 128 H, Carbon Dioxide 24, Anion Gap 10.7, BUN 51 H, Creatinine 1.70 H, Estimated Creat Clear 37, Estimated GFR 29 L, Est GFR ( Amer) 35 L, Glucose 217 H, Calcium 9.5 I & O for Last 24 hours: Intake & Output 08/01/20 08/02/20 08/03/20 08/04/20 11:59 11:59 11:59 11:59 Intake Total 1295 / 1295 1136 / 1136 2143 / 2143 0 / 0 Output Total 1200 / 1200 1480 / 1480 500 / 500 1650 / 1650 Balance 95 / 95 -344 / -344 1643 / 1643 -1650 / -1650 Weight 207 lb 206 lb 6.997 oz 205 lb 7 oz 201 lb Microbiology Reports for the Last 24 Hours: Microbiology 07/29/20 21:13 Blood Blood Culture - Final NO GROWTH AFTER 5 DAYS 07/29/20 21:13 Blood Blood Culture - Final NO GROWTH AFTER 5 DAYS 07/31/20 11:37 Cerebral Spinal Fluid Gram Stain - Final 07/31/20 11:37 Cerebral Spinal Fluid CSF Culture - Preliminary NO GROWTH AFTER 72 HOURS 07/30/20 21:38 Sputum - Expectorated Sputum Gram Stain - Final 07/30/20 21:38 Sputum - Expectorated Sputum Sputum Culture - Preliminary Citrobacter freundii Klebsiella pneumoniae - Constitutional obtunded - *Routine HEENT Exam Head: Present: normocephalic - *Routine Neck Exam Absent: JVD - *Routine Respiratory Exam Absent: respiratory distress - *Routine Cardiovascular Exam Present: RRR - *Routine Abdominal Exam Present: soft - *Routine Skin Exam Present: intact - *Routine Neurological Exam Present: altered mental status - Routine Psychiatric Exam Present: unable to assess Assessment and Plan (1) Physical deconditioning Status: Chronic Category: Medical Code(s): R53.81 - Other malaise (2) Weakness Status: Chronic Category: Medical Code(s): R53.1 - Weakness (3) Chronic renal disease Status: Chronic Qualifiers: Chronic kidney disease stage: stage 4 (severe) Qualified Code(s): N18.4 - Chronic kidney disease, stage 4 (severe) Category: Medical Code(s): N18.9 - Chronic kidney disease, unspecified (4) Type 2 diabetes mellitus Status: Chronic Qualifiers: Diabetes mellitus moth exterminator insulin use: unspecified moth exterminator insulin use status Diabetes mellitus complication status: with neurologic complications Diabetes mellitus complication detail: with unspecified neuropathy Qualified Code(s): E11.40 - Type 2 diabetes mellitus with diabetic neuropathy, unspecified Category: Medical Code(s): E11.9 - Type 2 diabetes mellitus without complications (5) Diabetes mellitus with neuropathy Status: Chronic Category: Medical Code(s): E11.40 - Type 2 diabetes mellitus with diabetic neuropathy, unspecified (6) Coronary artery disease Status: Chronic Category: Medical Code(s): I25.10 - Atherosclerotic heart disease of [place] coronary artery without angina pectoris (7) Congestive heart failure Status: Chronic Category: Medical Code(s): I50.9 - Heart failure, unspecified (8) Erosive osteoarthritis Status: Acute Category: Medical Code(s): M15.4 - Erosive (osteo)art
--- NOTE | 2020-08-04 12:07 | PC.NURSE ---
Made Dr. Dodson aware this am of critical sodium 159, and chloride 128 at 0855. NNO given. Pt resting comfortably at this time. RR have been 8-12 this shift with apnea lasting 5-10 seconds and intermittently irregular. Hospice nurse here this am to assess pt as well. Family are at bedside currently. Have given levsin x 1 this shift. Will cont to mx. Remains safe.
--- NOTE | 2020-08-04 19:31 | PC.NURSE ---
No acute changes, meds per mar. Family at bedside. Mottling noted to arms.
[2020-08-04 20:00] VITALS: BP 142/57; PULSE 69; RESP 14; TEMP 36.9; O2SAT 92
--- NOTE | 2020-08-05 04:20 | PC.NURSE ---
No acute changes this shift. Med given per MAR. family at bedside. family refuses for pt to be turned.
[2020-08-05 05:00] VITALS: BMI 29.6
[2020-08-05 07:58] VITALS: BP 119/51; PULSE 86; RESP 18; TEMP 37.1; O2SAT 90
--- NOTE | 2020-08-05 09:58 | HMH.ACPN2 ---
Internal Medicine - PN: Subj *Date: 08/05/20 *Time: 09:58 Interval history: obtunded but appears comfortable Exam Vital signs and Labs for Last 24 Hours: Temp Pulse Resp BP Pulse Ox 98.8 F 86 18 119/51 L 90 L 08/05/20 07:58 08/05/20 07:58 08/05/20 07:58 08/05/20 07:58 08/05/20 07:58 I & O for Last 24 hours: Intake & Output 08/02/20 08/03/20 08/04/20 08/05/20 11:59 11:59 11:59 11:59 Intake Total 1136 / 1136 2143 / 2143 0 / 0 0 / 0 Output Total 1480 / 1480 500 / 500 1650 / 1650 650 / 650 Balance -344 / -344 1643 / 1643 -1650 / -1650 -650 / -650 Weight 206 lb 6.997 oz 205 lb 7 oz 201 lb 200 lb Microbiology Reports for the Last 24 Hours: Microbiology 07/31/20 11:37 Cerebral Spinal Fluid Gram Stain - Final 07/31/20 11:37 Cerebral Spinal Fluid CSF Culture - Preliminary NO GROWTH AFTER 4 DAYS - Constitutional no acute distress - *Routine HEENT Exam Head: Present: normocephalic ENT: Present: mucous membranes dry - *Routine Neck Exam Absent: JVD - *Routine Respiratory Exam Absent: respiratory distress - *Routine Cardiovascular Exam Present: RRR - *Routine Neurological Exam Present: altered mental status - Routine Psychiatric Exam Present: unable to assess Assessment and Plan (1) Physical deconditioning Status: Chronic Category: Medical Code(s): R53.81 - Other malaise (2) Weakness Status: Chronic Category: Medical Code(s): R53.1 - Weakness (3) Chronic renal disease Status: Chronic Qualifiers: Chronic kidney disease stage: stage 4 (severe) Qualified Code(s): N18.4 - Chronic kidney disease, stage 4 (severe) Category: Medical Code(s): N18.9 - Chronic kidney disease, unspecified (4) Type 2 diabetes mellitus Status: Chronic Qualifiers: Diabetes mellitus buttermaker insulin use: unspecified buttermaker insulin use status Diabetes mellitus complication status: with neurologic complications Diabetes mellitus complication detail: with unspecified neuropathy Qualified Code(s): E11.40 - Type 2 diabetes mellitus with diabetic neuropathy, unspecified Category: Medical Code(s): E11.9 - Type 2 diabetes mellitus without complications (5) Diabetes mellitus with neuropathy Status: Chronic Category: Medical Code(s): E11.40 - Type 2 diabetes mellitus with diabetic neuropathy, unspecified (6) Coronary artery disease Status: Chronic Category: Medical Code(s): I25.10 - Atherosclerotic heart disease of [place] coronary artery without angina pectoris (7) Congestive heart failure Status: Chronic Category: Medical Code(s): I50.9 - Heart failure, unspecified (8) Erosive osteoarthritis Status: Acute Category: Medical Code(s): M15.4 - Erosive (osteo)arthritis (9) Anxiety Status: Chronic Category: Medical Code(s): F41.9 - Anxiety disorder, unspecified (10) Essential hypertension Status: Chronic Category: Medical Code(s): I10 - Essential (primary) hypertension (11) Ecchymosis Status: Acute Category: Medical Code(s): R58 - Hemorrhage, not elsewhere classified (12) Prerenal azotemia Status: Acute Category: Medical Code(s): R79.89 - Other specified abnormal findings of blood chemistry (13) Sepsis with organ dysfunction Status: Acute Category: Medical Code(s): A41.9 - Sepsis, unspecified organism; R65.20 - Severe sepsis without septic shock (14) End of life care Status: Acute Category: Medical Code(s): Z51.5 - Encounter for palliative care
--- NOTE | 2020-08-05 16:45 | PC.NURSE ---
Pt remains obtunded. Have medicated per mar with scheduled med and prn ativan. Family has declined pt to be turned this shift. They have remained at bedside throughout shift. [place] remains in place. Dsgs in place to R leg and L upper arm. Will cont to mx this shift. Skin remains warm-mottled at this time.
--- NOTE | 2020-08-05 19:07 | PC.NURSE ---
Prn dilaudid given per nov r/t increased rr. Temp 100, offered tylenol and family refused. 02 at 2 L applied for comfort.
[2020-08-05 21:16] VITALS: BP 107/44; PULSE 106; RESP 22; TEMP 37.8
[2020-08-06 05:00] VITALS: BMI 29.9
--- NOTE | 2020-08-06 05:37 | PC.NURSE ---
Addendum entered by Socorro Colmenares RN 08/06/20 05:41: pt family refused tylenol sup. PRN given Per NOV. f/c draining. family at bedside Original Note: no acute changes this shift. temperature was 100 @ 2100 pt refused
[2020-08-06 08:00] VITALS: BP 115/53; PULSE 96; RESP 21; TEMP 36.6; O2SAT 96
--- NOTE | 2020-08-06 09:16 | HMH.ACPN2 ---
Internal Medicine - PN: Subj *Date: 08/06/20 *Time: 09:16 Interval history: family at bedside no change in status Exam Vital signs and Labs for Last 24 Hours: Temp Pulse Resp BP Pulse Ox 97.9 F 96 H 21 115/53 L 96 08/06/20 08:00 08/06/20 08:00 08/06/20 08:00 08/06/20 08:00 08/06/20 08:00 I & O for Last 24 hours: Intake & Output 08/03/20 08/04/20 08/05/20 08/06/20 11:59 11:59 11:59 11:59 Intake Total 2143 / 2143 0 / 0 0 / 0 0 / 0 Output Total 500 / 500 1650 / 1650 650 / 650 550 / 550 Balance 1643 / 1643 -1650 / -1650 -650 / -650 -550 / -550 Weight 205 lb 7 oz 201 lb 200 lb 202 lb 5 oz Microbiology Reports for the Last 24 Hours: Microbiology 07/31/20 11:37 Cerebral Spinal Fluid Gram Stain - Final 07/31/20 11:37 Cerebral Spinal Fluid CSF Culture - Final NO GROWTH AFTER 5 DAYS - Constitutional no acute distress - *Routine HEENT Exam Head: Present: normocephalic Eye: Present: PERRL ENT: Present: mucous membranes moist - *Routine Neck Exam Present: supple. Absent: lymphadenopathy - *Routine Respiratory Exam Present: rhonchi - *Routine Cardiovascular Exam Present: RRR - *Routine Abdominal Exam Present: soft, normoactive bowel sounds. Absent: tenderness - *Routine Extremities Exam Present: normal capillary refill. Absent: cyanosis, clubbing, edema - *Routine Skin Exam Present: warm, wounds. Absent: rash Comments: stage 1 on coccyx - *Routine Neurological Exam no response when spoken too eyes open - Routine Psychiatric Exam Present: normal affect Assessment and Plan (1) Physical deconditioning Status: Chronic Category: Medical Code(s): R53.81 - Other malaise (2) Weakness Status: Chronic Category: Medical Code(s): R53.1 - Weakness (3) Chronic renal disease Status: Chronic Qualifiers: Chronic kidney disease stage: stage 4 (severe) Qualified Code(s): N18.4 - Chronic kidney disease, stage 4 (severe) Category: Medical Code(s): N18.9 - Chronic kidney disease, unspecified (4) Type 2 diabetes mellitus Status: Chronic Qualifiers: Diabetes mellitus correction insulin use: unspecified manager terminal insulin use status Diabetes mellitus complication status: with neurologic complications Diabetes mellitus complication detail: with unspecified neuropathy Qualified Code(s): E11.40 - Type 2 diabetes mellitus with diabetic neuropathy, unspecified Category: Medical Code(s): E11.9 - Type 2 diabetes mellitus without complications (5) Diabetes mellitus with neuropathy Status: Chronic Category: Medical Code(s): E11.40 - Type 2 diabetes mellitus with diabetic neuropathy, unspecified (6) Coronary artery disease Status: Chronic Category: Medical Code(s): I25.10 - Atherosclerotic heart disease of [place] coronary artery without angina pectoris (7) Congestive heart failure Status: Chronic Category: Medical Code(s): I50.9 - Heart failure, unspecified (8) Erosive osteoarthritis Status: Acute Category: Medical Code(s): M15.4 - Erosive (osteo)arthritis (9) Anxiety Status: Chronic Category: Medical Code(s): F41.9 - Anxiety disorder, unspecified (10) Essential hypertension Status: Chronic Category: Medical Code(s): I10 - Essential (primary) hypertension (11) Ecchymosis Status: Acute Category: Medical Code(s): R58 - Hemorrhage, not elsewhere classified (12) Prerenal azotemia Status: Acute Category: Medical Code(s): R79.89 - Other specified abnormal findings of blood chemistry (13) Sepsis with organ dysfunction Status: Acute Category: Medical Code(s): A41.9 - Sepsis, unspecified organism; R65.20 - Severe sepsis without septic shock (14) End of life care Status: Acute Category: Medical Code(s): Z51.5 - Encounter for palliative care - Assessment and plan all Dx Assessment and Plan for all problems:: continue hospice for c
--- NOTE | 2020-08-06 10:02 | DIET.NUTRFU ---
Pt NPO per hospice care. BG moderate- ~215, total weight loss t/o stay 4#. No further nutritional needs, will continue to monitor and be available for family nutrition questions/concerns.
--- NOTE | 2020-08-06 11:04 | SW/DCPLANNER ---
This patient continues to be Inpatient Hospice. I have spoke with Geni Cabrera with Hospice this morning and she has stated that a nurse will follow up and they have no needs at this time. I will follow up with Hospice nurse this afternoon.
--- NOTE | 2020-08-06 16:54 | PC.NURSE ---
PATIENT COMFORT CARE. FRONTLOAD DRIVER AND STRAIGHTENER AT BEDSIDE DURING THIS RN SHIFT. PATIENT'S FAMILY HAS REFUSED ALL CARE EXCEPT MEDICATION ADMINISTRATION. THIS RN ATTEMPTED TO PROVIDED ORAL CARE AND PATIENT CLOSED HER LIPS AND SHOOK HEAD SIDE TO SIDE. ORAL CAVITY DRY, AT THIS TIME PATIENT IS NOT GARGLING WITH BREATHS, NO LEVSIN ADMINISTERED. NO OTHER CONCERNS AT THIS TIME.
[2020-08-06 20:00] VITALS: BP 133/54; PULSE 84; RESP 20; TEMP 37.1; O2SAT 89
[2020-08-06 21:10] VITALS: RESP 16
[2020-08-06 22:07] VITALS: RESP 12
[2020-08-07 05:00] VITALS: BMI 29.6
--- NOTE | 2020-08-07 06:11 | PC.NURSE ---
PT. REMAINS OBTUNDED. FAMILY AT BEDSIDE; FAMILY HAS REFUSED PT. TO BE BATHED, T/R; EDUCATED FAMILY ON BENEFITS OF THESE PRACTICES, VERBALIZED UNDERSTANDING. ADMINISTERED ATIVAN/DILAUDID PRN PER FAMILY. GENERALIZED EDEMA NOTED. DEEP LABORED BREATHING NOTED, WITH RHONCHI TO BILAT LUNGS.
[2020-08-07 07:58] VITALS: BP 136/53; PULSE 88; RESP 20; TEMP 37.1; O2SAT 86
--- NOTE | 2020-08-07 08:04 | HMH.ACPN2 ---
Internal Medicine - PN: Subj *Date: 08/07/20 *Time: 16:11 Interval history: 80 YOF in bed, unresponsive to verbal stimuli. Family at bedside, they deny any needs at this time. Sputum cultures grew Klebsiella pneumonia and Citrobacter Freundii. pt cont on Hospice Care Exam Vital signs and Labs for Last 24 Hours: Temp Pulse Resp BP Pulse Ox 98.8 F 84 12 133/54 L 89 L 08/06/20 20:00 08/06/20 20:00 08/06/20 22:07 08/06/20 20:00 08/06/20 20:00 I & O for Last 24 hours: Intake & Output 08/04/20 08/05/20 08/06/20 08/07/20 23:59 23:59 23:59 23:59 Intake Total 0 / 0 0 / 0 Output Total 1300 / 1300 400 / 400 425 / 425 Balance -1300 / -1300 -400 / -400 -425 / -425 Weight 201 lb 200 lb 202 lb 5 oz 200 lb 3 oz - Constitutional no acute distress, chronically ill appearing - *Routine HEENT Exam Head: Present: normocephalic ENT: Present: mucous membranes dry - *Routine Neck Exam Present: trachea midline. Absent: JVD, tracheal deviation - *Routine Respiratory Exam Present: rhonchi. Absent: accessory muscle use - *Routine Cardiovascular Exam Present: RRR - *Routine Abdominal Exam Present: soft, normoactive bowel sounds. Absent: tenderness, firm - *Routine Extremities Exam Present: edema, pulses intact. Absent: cyanosis - *Routine Skin Exam Present: intact, pallor. Absent: jaundice - *Routine Neurological Exam Present: altered mental status. Absent: alert - Routine Psychiatric Exam Present: unable to assess. Absent: normal affect, normal thought process Assessment and Plan (1) Physical deconditioning Status: Chronic Category: Medical Code(s): R53.81 - Other malaise (2) Weakness Status: Chronic Category: Medical Code(s): R53.1 - Weakness (3) Chronic renal disease Status: Chronic Qualifiers: Chronic kidney disease stage: stage 4 (severe) Qualified Code(s): N18.4 - Chronic kidney disease, stage 4 (severe) Category: Medical Code(s): N18.9 - Chronic kidney disease, unspecified (4) Type 2 diabetes mellitus Status: Chronic Qualifiers: Diabetes mellitus halfway insulin use: unspecified adjunct faculty for medical terminology insulin use status Diabetes mellitus complication status: with neurologic complications Diabetes mellitus complication detail: with unspecified neuropathy Qualified Code(s): E11.40 - Type 2 diabetes mellitus with diabetic neuropathy, unspecified Category: Medical Code(s): E11.9 - Type 2 diabetes mellitus without complications (5) Diabetes mellitus with neuropathy Status: Chronic Category: Medical Code(s): E11.40 - Type 2 diabetes mellitus with diabetic neuropathy, unspecified (6) Coronary artery disease Status: Chronic Category: Medical Code(s): I25.10 - Atherosclerotic heart disease of [place] coronary artery without angina pectoris (7) Congestive heart failure Status: Chronic Category: Medical Code(s): I50.9 - Heart failure, unspecified (8) Erosive osteoarthritis Status: Acute Category: Medical Code(s): M15.4 - Erosive (osteo)arthritis (9) Anxiety Status: Chronic Category: Medical Code(s): F41.9 - Anxiety disorder, unspecified (10) Essential hypertension Status: Chronic Category: Medical Code(s): I10 - Essential (primary) hypertension (11) Ecchymosis Status: Acute Category: Medical Code(s): R58 - Hemorrhage, not elsewhere classified (12) Prerenal azotemia Status: Acute Category: Medical Code(s): R79.89 - Other specified abnormal findings of blood chemistry (13) Sepsis with organ dysfunction Status: Acute Category: Medical Code(s): A41.9 - Sepsis, unspecified organism; R65.20 - Severe sepsis without septic shock (14) End of life care Status: Acute Category: Medical Code(s): Z51.5 - Encounter for palliative care (15) Pneumonia, Klebsiella Start date: 07/31/20 (Citrobacter Freundii) Status: Acute Category: Medical Code(s): J15.0 - Pneumonia due to Klebsie
--- NOTE | 2020-08-07 08:07 | PC.NURSE ---
Told [facility] about o2 on patient 86% on 2L
--- NOTE | 2020-08-07 09:47 | SW/DCPLANNER ---
This patient continues to be Inpatient Hospice Care at this time. I will continue to follow up with Hospice regarding this patient.
--- NOTE | 2020-08-07 16:45 | PC.NURSE ---
Pt resting currently. Family has refused care such as turning and repositioning. Hospice nurse and Barby here this shift. Comfort care continues. Meds given per michele. Ulises in place. Will cont to mx this shift.
[2020-08-07 18:20] VITALS: O2SAT 90
--- NOTE | 2020-08-07 18:51 | PC.NURSE ---
Oral care given this afternoon. Did given levasin x one recently per nov r/t starting of secretions. 8 RR with 10 seconds of apnea. Breathing is more shallow at this time. Family remains at bedside.
[2020-08-07 20:00] VITALS: BP 128/51; PULSE 101; PULSE 88; RESP 14; RESP 16; TEMP 36.7; O2SAT 90
[2020-08-07 21:16] VITALS: RESP 22
[2020-08-07 23:21] VITALS: RESP 14
[2020-08-08 05:00] VITALS: BMI 29.3
--- NOTE | 2020-08-08 05:05 | PC.NURSE ---
Pt continues to be obtunded and only responsive to deep painful stimuli. Family continues to be at bedside and they have refused for pt to be turned, bathed, or bottom linen changed. Family educated on the risks and benefits. 2x 20g peripheral IV in place to R wrist and FA and flushes easily. Non-pitting edema t/o body. Rhonchi noted on lung auscultation. Arms elevated on pillows. Oral care and mouth moistener completed several times this shift and pt tolerated well, no gag reflex noted. Administered Ativan and Dilaudid per NOV. Pt has had several episodes with apnea some noted 15-20 sec. 2LPM via NC continues. Call light within reach, family voice no needs at this time.
[2020-08-08 07:19] VITALS: RESP 13
--- NOTE | 2020-08-08 09:58 | HMH.ACPN2 ---
Internal Medicine - PN: Subj *Date: 08/08/20 *Time: 13:43 Exam Vital signs and Labs for Last 24 Hours: Temp Pulse Resp BP Pulse Ox 98.0 F 88 13 128/51 L 90 L 08/07/20 20:00 08/07/20 20:00 08/08/20 07:19 08/07/20 20:00 08/07/20 20:00 I & O for Last 24 hours: Intake & Output 08/05/20 08/06/20 08/07/20 08/08/20 23:59 23:59 23:59 23:59 Intake Total 0 / 0 Output Total 400 / 400 425 / 425 400 / 400 Balance -400 / -400 -425 / -425 -400 / -380 Weight 200 lb 202 lb 5 oz 200 lb 3 oz 198 lb 5 oz Microbiology Reports for the Last 24 Hours: Microbiology 07/30/20 21:38 Sputum - Expectorated Sputum Gram Stain - Final 07/30/20 21:38 Sputum - Expectorated Sputum Sputum Culture - Final Citrobacter freundii Klebsiella pneumoniae - Constitutional chronically ill appearing, obtunded - *Routine HEENT Exam Head: Present: normocephalic ENT: Present: mucous membranes dry - *Routine Neck Exam Present: trachea midline. Absent: JVD, tracheal deviation - *Routine Respiratory Exam Present: CTA bilaterally. Absent: accessory muscle use - *Routine Cardiovascular Exam Present: RRR - *Routine Abdominal Exam Present: soft, normoactive bowel sounds. Absent: firm - *Routine Extremities Exam Present: edema, pulses intact. Absent: clubbing - *Routine Skin Exam Present: pallor, warm. Absent: jaundice - *Routine Neurological Exam Present: altered mental status - Routine Psychiatric Exam Present: unable to assess Assessment and Plan (1) Physical deconditioning Status: Chronic Category: Medical Code(s): R53.81 - Other malaise (2) Weakness Status: Chronic Category: Medical Code(s): R53.1 - Weakness (3) Chronic renal disease Status: Chronic Qualifiers: Chronic kidney disease stage: stage 4 (severe) Qualified Code(s): N18.4 - Chronic kidney disease, stage 4 (severe) Category: Medical Code(s): N18.9 - Chronic kidney disease, unspecified (4) Type 2 diabetes mellitus Status: Chronic Qualifiers: Diabetes mellitus intermediate designer insulin use: unspecified penitentiary insulin use status Diabetes mellitus complication status: with neurologic complications Diabetes mellitus complication detail: with unspecified neuropathy Qualified Code(s): E11.40 - Type 2 diabetes mellitus with diabetic neuropathy, unspecified Category: Medical Code(s): E11.9 - Type 2 diabetes mellitus without complications (5) Diabetes mellitus with neuropathy Status: Chronic Category: Medical Code(s): E11.40 - Type 2 diabetes mellitus with diabetic neuropathy, unspecified (6) Coronary artery disease Status: Chronic Category: Medical Code(s): I25.10 - Atherosclerotic heart disease of [place] coronary artery without angina pectoris (7) Congestive heart failure Status: Chronic Category: Medical Code(s): I50.9 - Heart failure, unspecified (8) Erosive osteoarthritis Status: Acute Category: Medical Code(s): M15.4 - Erosive (osteo)arthritis (9) Anxiety Status: Chronic Category: Medical Code(s): F41.9 - Anxiety disorder, unspecified (10) Essential hypertension Status: Chronic Category: Medical Code(s): I10 - Essential (primary) hypertension (11) Ecchymosis Status: Acute Category: Medical Code(s): R58 - Hemorrhage, not elsewhere classified (12) Prerenal azotemia Status: Acute Category: Medical Code(s): R79.89 - Other specified abnormal findings of blood chemistry (13) Sepsis with organ dysfunction Status: Acute Category: Medical Code(s): A41.9 - Sepsis, unspecified organism; R65.20 - Severe sepsis without septic shock (14) End of life care Status: Acute Category: Medical Code(s): Z51.5 - Encounter for palliative care (15) Pneumonia, Klebsiella Start date: 07/31/20 (Citrobacter Freundii) Status: Acute Category: Medical Code(s): J15
--- NOTE | 2020-08-08 14:00 | PC.NURSE ---
Family at bedside. RR currently 12 with apnea 8-9 seconds of apnea. No distress. Will cont to mx.
[2020-08-08 15:39] VITALS: BP 95/50; PULSE 106; RESP 12; TEMP 37.3; O2SAT 87
--- NOTE | 2020-08-08 18:46 | PC.NURSE ---
No acute changes at this time.
--- NOTE | 2020-08-08 19:11 | PC.NURSE ---
report given to carrie
[2020-08-08 20:00] VITALS: PULSE 120
[2020-08-08 23:28] VITALS: RESP 28
--- NOTE | 2020-08-09 01:52 | HMH.DEATH ---
Pronouncement Note - Date and Time of Date of : 08/09/20 Time of : 01:30 - PCOD Preliminary cause of : Pneumonia - Additional Data Confirmation of : no pulse, no respirations, no heart sounds, pupils fixed and dilated Family: at bedside Attending/PCP notified?: Yes Attending physician: Johny Diop MD Was code activated?: No Autopsy requested?: No motor vehicle examiner notified?: No Organ bank notified?: Yes Advance directives: Yes
--- NOTE | 2020-08-09 01:53 | HMH.DCSUM ---
General - General Admission date:: 07/29/20 Discharge date: 08/09/20 HPI HPI: Patient is an 80 year old female who presents with shortness of breath. History is limited as patient is awake but drowsy. Per EMS patient has been in and out of the hospital for similar complaints and was told by OSH there was nothing more they could do . En route glucose was 116. She was 96% on room air but was placed on 2L NC for comfort. No other history is able to be obtained. 0900 - Daughter is now in room and further history is able to be obtained. Patient was reportedly hospitalized about a month ago for fluid overload and has been deconditioned since that stay. Prior to that stay, she was able to ambulate independently and complete ADLs. She lives with her daughter. Since then she has required home health and has had PT/OT at home but requires significant help with feeding, ambulating, etc. For the past 2 days she has been drowsy and patient's daughter states she was barely able to transfer from bed to commode with full assist. She did have a fall 3 days ago. Daughter is having trouble taking care of her at home due to extreme weakness. Merari is a regular patient of Dr. Ariel Germain. She has been hospitalized 3 times since November. Most recently at in early June. I spoke with the son this morning. Is that work-ups have been inconclusive. It was felt at one point that general weakness was due to multiple medications, gabapentin was implicated. She takes this for peripheral neuropathy. She sustained a fall 3 days ago, was preceded by several weeks of progressive weakness. Son does relay some difficulties with expression, he does not relate a specific right-sided motor weakness. She has a global loss of strength, particularly noted in her bilateral lower extremities. She has a history of renal insufficiency and CHF. Is followed by a specialist in [place] for this. Due to the history of fall a CT of the C-spine and brain were obtained by the ER physician last night. CT the brain was without acute findings. CT of the C-spine showed diffuse degenerative changes. X-ray was clear. Her regimen included 70/30 insulin twice daily. Possibility of significant hypoglycemia very notable. Post recent venipuncture sugar was 92. We will hold all of her diabetic medications. She is admitted for further evaluation and treatment. One of her medications, Klonopin, has a long half-life. It is unknown whether she took a dose last night or not. Hopefully her somnolence will clear as this particular medication is held. Hospital Course Hospital Course: pt was admitted and on ivf and abx and had slow and slight improvement - she was seen by pulmonary -sLeyla Crawford is a 80-year-old female with a history of anxiety, congestive heart failure coronary artery disease, diabetes, dyslipidemia, recent history of pneumonia was presented to the hospital with worsening altered mentation and shortness of breath for the last week and pulmonary was consulted for further management. On further questioning patient family stated that she was recently admitted to the [facility] for presumed volume overload and she was discharged and since then patient was gradually become obtunded and also had an episode of file last week. Family denies any recent episode of fevers chills, worsening cough or any worsening productive phlegm. Patient obtunded only arousable to sternal rub, could not obtain any history or review of systems from the patient. Acute hypoxic respiratory failure: Ms. Crawford is a 80-year-old female with multiple comorbidities presented to the hospital with worsening respiratory failure and altered mentation. CT head on admission did not show any acute hemorrhage. Notable chemistry labs include hyperkalemia at 5.1, elevated BUN/creatinine. Blood glucose at 120. Serum lactate within normal limits at 0.6 from yesterday. WBC at 8.1 with neutrophil predominance at 85.4%. Infectiou
--- NOTE | 2020-08-09 02:05 | PC.NURSE ---
Addendum entered by Radha Medina RN 08/09/20 04:47: Hospice notified of patient . Original Note: 0130 Son called out stating his mother had stopped breathing. Patient has do not resuscitate orders. RN assessed pt and found no respirations and no pulse. Suhas Crawford, son and Shruthi Crawford, daughter present at bedside. Dr. Dodson construction equipment mechanic for Dr. Diop. Dr. Dodson arrived to floor at 0145 to pronounce pt. BISHOP contacted per Nikhil CastroShuttle Buggy Operator. Vanessa Castro at [facility] notified. Son in waiting room stating he will wait until home representatives arrive. Post-mortem care provided with removal of right forearm iv and right wrist iv. [place] catheter discontinued. Glasses and dentures staying with patient for home use. Patient belongings of clothing and all home medications returned to Shruthi Crawford, daughter.
--- NOTE | 2020-08-09 02:05 | HMH.DEADDC ---
Discharge Sum: Prov - Provider Primary care physician: Ariel Germain Visit Care Team Role Provider Type Ariel Germain Primary Care Provider Staff Physician Karina Escudero MD Other Providers Staff Physician Mera Marvin MD Emergency Provider ER Physician Johny Diop MD Admit Provider Staff Physician Attending Provider Consults: 07/29/20 10:19 Consult to Case Management [CONS] Routine Reason For Consult: placement, unable to complete ADLs 07/30/20 12:49 Consult to Pulmonology [CONS] Stat Consulting Provider: Karina Escudero Reason For Consult: pneumonia, c02 retention 08/03/20 09:15 Care Management Consult [Consult to Case Management] [CONS] Routine Reason For Consult: Hospice consult. Is she a candidate for inpatient care? Discharge Sum: Diag - PCOD Cause of : Pneumonia Discharge Sum: Summary - Date and Time Date of admission: 07/29/20 10:51 Date of : 08/09/20 Time of : 01:30 - Hospital Course prior to Hospital Course Information: pt admitted with ivf and abx and pulmonary consult and despite abx and fluids slowly declined and then had failure of kidneys and declined and unable to take po and family obtained hospice for comfort care - Additional Data Confirmation of as documented by pronouncing clinician: no pulse, no respirations, no heart sounds Family: at bedside Attending/PCP notified?: Yes Attending physician: Johny Diop MD Was code activated?: No Autopsy requested?: No latent fingerprint examiner notified?: No Organ bank notified?: Yes Advance directives: Yes Hospice patient?: Yes
--- NOTE | 2020-08-09 03:00 | PC.NURSE ---
0233 Pt discharged to [facility]. Son left with pt.
== END 2020-08-09 02:33 | disposition expired | DRG 193 ==
LOC: ER 09:15 → 2ND 09:47
PROVIDERS: Internal Medicine Adolescent Medicine; Internal Medicine Pulmonary Disease; Nurse Practitioner Family; Radiology Diagnostic Radiology; Admitting Provider Family Medicine; Emergency Provider Emergency Medicine; PCP Internal Medicine; Visit Provider Family Medicine
DX: J18.9 Pneumonia, unspecified organism (principal); J96.01 Acute respiratory failure with hypoxia; R65.20 Severe sepsis without septic shock; I13.0 Hypertensive heart and chronic kidney disease with heart failure and stage 1 through stage 4 chronic kidney disease, or unspecified chronic kidney disease; N18.4 Chronic kidney disease, stage 4 (severe); I50.9 Heart failure, unspecified; Z95.0 Presence of cardiac pacemaker; M15.4 Erosive (osteo)arthritis; E11.40 Type 2 diabetes mellitus with diabetic neuropathy, unspecified; Z79.4 Long term (current) use of insulin; Z79.51 Long term (current) use of inhaled steroids; Z88.5 Allergy status to narcotic agent; E11.22 Type 2 diabetes mellitus with diabetic chronic kidney disease; I25.10 Atherosclerotic heart disease of native coronary artery without angina pectoris
CPT/HCPCS: 62270; 36415; 70450; 71045; 72125; 80048; 80053; 80069; 81001; 82140; 82306; 82803; 82945; 82962; 83605; 83880; 83970; 84145; 84155; 84443; 84484; 85007; 85014; 85018; 85025; 85378; 85610; 85730; 86328; 87040; 87070; 87077; 87086; 87186; 87205; 87486; 87581; 87633; 87798; 87899; 89051; 92610; 93005; 93306; 94640; 94761; 99284; J0456; J3370